=== PATIENT | male | born 2000 | race Caucasian/White ===

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

== ENCOUNTER 2022-06-26 22:37 | Inpatient (IN) | payer OTHER, SELFPAY ==
[2022-06-26 22:40] VITALS: BP 159/108; PULSE 137; RESP 22; TEMP 36.6; O2SAT 99; BMI 29.5
--- NOTE | 2022-06-26 22:55 | XRR_ITS ---
PROCEDURE INFORMATION: Exam: XR Chest Exam date and time: 06/26/2022 11:15 PM Age: 22 years old Clinical indication: Patient HX: Hyperglycemia with lethargy. Type 1 diabetic. TECHNIQUE: Imaging protocol: Radiologic exam of the chest. Views: 1 view. COMPARISON: CR XR chest 1V portable [id number] 11/15/2021 7:41 AM FINDINGS: Lungs: Unremarkable. No consolidation. Pleural spaces: Unremarkable. No pleural effusion. No pneumothorax. Heart/Mediastinum: Unremarkable. No cardiomegaly. Bones/joints: Unremarkable. XR/XR chest 1V portable [id number] IMPRESSION: No acute findings.
[2022-06-26 23:16] LABS: Glucose Point of Care 528 mg/dL (70-110)
[2022-06-26 23:22] LABS: ABG PCO2 14.1 mmHg (35-45); HCO3 ABG 3.5 mmol/L (22-26)
[2022-06-26 23:23] LABS: Base Excess ABG -25.8 mmol/L (-2.0-2.0); Blood Gas Allen Test POS; Oxygen Device RA
[2022-06-26 23:24] LABS: Arterial Blood Gas Hematocrit 53.7 % (42-52); Blood Gas Sample Site R RADIAL; Blood Gas Sample Type ART
[2022-06-26 23:24] LABS: Basophils # 0.1 10^3/uL (0.0-0.1); Basophils % 0.5 %; Eosinophils % 0.2 %; Hematocrit 52.3 % (42.0-52.0); Hemoglobin 16.8 g/dL (11.7-16.6); Lymphocytes # 2.7 10^3/uL (1.5-6.5); Lymphocytes % 23.6 %; Mean Corpuscular HGB Conc 32.1 g/dL (30.0-36.0); Mean Corpuscular Hemoglobin 28.6 pg (28.0-34.0); Mean Corpuscular Volume 88.9 fl (80-94); Mean Platelet Volume 10.1 fL (7.4-10.4); Monocytes # 0.4 10^3/uL (0.2-0.9); Monocytes % 3.5 %; Neutrophils # 8.24 10^3/uL (1.8-8.0); Neutrophils % 71.4 %; Nucleated Red Blood Cells % 0 %; Platelet Count 408 10^3/cmm (130-400); Red Blood Count 5.88 10^6/uL (4.1-5.3); Red Cell Distribution Width 12.2 % (12.1-15.1); White Blood Count 11.5 10^3/uL (4.5-13.0)
[2022-06-26] MEDS: sodium chloride 0.9% 1,000 ML 999 ML IV ×2 (23:29→23:55)
[2022-06-26] MEDS: ondansetron 2 mg/ML SDV 2 mL 4 MG IVP (23:32)
[2022-06-26] MEDS: insulin regular-human 100 units/1 mL 10 UNIT IVP (23:32)
[2022-06-26 23:43] LABS: Alanine Aminotransferase 17 U/L (0-41); Albumin Level 4.9 g/dL (3.5-5.2); Alkaline Phosphatase 166 U/L (40-130); Anion Gap 45.2 (5-19); Aspartate Amino Transferase 18 U/L (0-40); Blood Urea Nitrogen 17 mg/dL (6-20); Calcium 9.4 mg/dL (8.5-10.5); Chloride 83 mmol/L (98-107); Globulin 3.5 g/dL (1.3-4.6); Glomerular Filtration Rate 70.4 mL/min (90-130); Lipase 9 U/L (13-60); Magnesium 2.5 mg/dL (1.7-2.3); Osmolality Calculated 289 mOsm/kg (285-295); Potassium 5.2 mmol/L (3.5-5.1); Sodium 126 mmol/L (136-145); Total Bilirubin 0.4 mg/dL (0.15-1.2); Total Protein 8.4 g/dL (6.6-8.7)
[2022-06-26 23:47] LABS: Carbon Dioxide 3 mmol/L (22-29); Glucose 557 mg/dL (65-115)
--- NOTE | 2022-06-26 23:49 | ECG_ITS ---
[facility] Test Date: 2022-06-26 Pat Name: Darrel Mcduffie Department: Room: Gender: Male Network Account Manager: : 2000 Requested By: Brayan Curtis Order Number: [id number] Leti MD: Kerwin Rice M.D. Measurements Intervals [place] Rate: 147 P: 66 MI: 133 QRS: 48 QRSD: 94 T: 59 QT: 279 QTc: 437 Interpretive Statements SINUS TACHYCARDIA ABNORMAL RHYTHM ECG Compared to ECG 11/15/2021 06:29:48 Left-axis deviation no longer present ST (T wave) deviation no longer present Electronically Signed On 06-27-2022 17:08:05 CDT by Kerwin Rice M.D. [id number]
[2022-06-26] MEDS: insulin regular-human 250 UNIT in sodium chloride 0.9% 250 ML 14.14 UNIT IV (23:52)
[2022-06-27] VITALS (72 sets, daily range): BP systolic 93–179; BP diastolic 63–106; PULSE 87–144; RESP 14–38; TEMP 36.4–36.8; O2SAT 94–100; BMI 31.6
[2022-06-27] MEDS: sodium bicarbonate 1 mEq/mL SDV 50mL 100 MEQ IVP (00:04)
[2022-06-27] MEDS: sodium chloride 0.9% 1,000 ML 999 ML IV ×2 (00:05→00:40)
[2022-06-27 00:13] LABS: Ketone (Acetest) Serum Positive (Negative)
--- NOTE | 2022-06-27 00:54 | ED_ITS ---
HPI - Recheck/Abnormal Lab/Rx General: Chief Complaint: Recheck/Abnormal Lab/Rx Stated Complaint: LOW BS Time Seen by Provider: 06/26/22 22:54 Source: patient History of Present Illness: 22-year-old male type I diabetic who has not been wearing his Dexcom sensor the last couple of days. Sugars have been high. He presents with multiple episodes of vomiting today. He is lethargic, breathing fast. complaint: abnormal lab Initial visit for: other Context: other Associated symptoms: chills, nausea and other Review of Systems Const: Reports: chills; Denies: fever(s) Eyes: Denies: change in vision ENMT: Denies: throat pain Card: Denies: chest pain Resp: Reports: dyspnea; Denies: productive cough or non-productive cough GI: Reports: nausea and vomiting; Denies: abdominal pain or diarrhea Skin/Breast: Denies: rash Neuro: Reports: headache(s) PFS ED PFSH: Medical History (Updated 06/27/22 @ 03:07 by Brayan West DO) DKA (diabetic ketoacidosis) Uncontrolled type 1 diabetes mellitus Surgical History No significant past surgical history Family History Father No problems noted. Mother No problems noted. Social History Smoking and tobacco status: never smoked Second hand smoke exposure: No Smoking risk assessment/counseling performed?: Yes Alcohol intake: never Substance/Drug Use: never Desire information about substance/drug rehabilitation?: No Counseling given: No Adopted: No Lives independently: No Household members: family Housing: House Marital status: Single Highest education level completed: High School Graduate Current occupational status: unemployed Current occupational exposures/hazards: No Physical Exam Const: GENERAL APPEARANCE: in distress, lethargic and ill appearing ORIENTATION/CONSCIOUSNESS: Yes lethargic HENMT: COMMON NORMALS: normocephalic, atraumatic and Normal external nose present HEAD & SCALP: normocephalic and atraumatic FACE & SINUS: normal facial exam and face symmetric NOSE: Normal external nose present Eye: COMMON NORMALS: Equal, round and reactive pupils present and EOMs intact bilaterally PUPIL: Yes Equal, round and reactive pupils present Neck/C-Spine: GENERAL: Yes trachea midline Chest: CHEST: Yes Symmetrical chest wall rise Resp: COMMON NORMALS: clear to auscultation bilaterally EFFORT & I NSPECTION: Yes tachypneic AUSCULTATION: clear to auscultation bilaterally Cardio: COMMON NORMALS: regular rhythm RATE: tachycardic RHYTHM: regular rhythm GI: COMMON NORMALS: Normal to inspection, nondistended, normoactive bowel sounds present and Soft to palpation PALPATION: Yes Soft to palpation Extremity: COMMON NORMALS: no pedal edema Neuro: [place] COMA SCALE: document GCS findings [place] coma scale eye opening: To sound [place] coma scale verbal response: Confused [place] coma scale motor response: Obey commands [place] coma scale total score: 13 SENSORIUM/ORIENTATION: Yes lethargic Skin: COMMON NORMALS: no wounds Course Vital Signs: Vital signs: Vital Signs Temperature 97.8 F 06/26/22 22:40 Pulse Rate 128 H 06/27/22 02:20 Respiratory Rate 24 H 06/27/22 02:20 Blood Pressure 179/106 06/27/22 02:20 Pulse Oximetry 100 06/27/22 02:20 Oxygen Delivery Me thod Room Air 06/27/22 00:02 MDM - Recheck/Abnormal Lab/Rx Medical Decision Making Patient significantly tachycardic, tachypneic. Hemoglobin is 17. White blood cell count is 11.5. Bicarbonate is 3. Potassium was 5.2 initially. Blood sugar is 557. 2 L bolus had been ordered initially. This was followed by another 2 L bolus ordered. He is placed on insulin drip after bolus of 12 units of insulin IV. H is 7.0 with a bicarbonate of 3.5. Lipase is normal. Serum ketones are obviously positive. Chest x-ray is negative. Heart rate is down to 120. Blood pressure 134/86, saturations 100. His color is better. He was given 2 A of bicarbonate for the low pH. He will require ICU admission. 4 L of fluid infused. Sugar is down to 246. Insulin drip still running with a goal of 200, but maintenance fluid changed to D5 half-normal saline with 20 mEq of potassium added for now. He is going to the ICU. Spoke with the hospitalist, who has evaluated the patient. Lab Data 06/26/22 23:02 06/26/22 23:02 Radiology Impressions Chest X-Ray 06/26/22 22:55 IMPRESSION: No acute findings. Laboratory Results WBC 11.5 10^3/uL (4.5-13.0) 06/26/22 23:02 RBC 5.88 10^6/uL (4.1-5.3) H 06/26/22 23:02 Hgb 16.8 g/dL (11.7-16.6) H 06/26/22 23:02 Hct 52.3 % (42.0-52.0) H 06/26/22 23:02 MCV 88.9 fl (80-94) 06/26/22 23:02 MCH 28.6 pg (28.0-34.0) 06/26/22 23:02 MCHC 32.1 g/dL (30.0-36.0) 06/26/22 23:02 RDW 12.2 % (12.1-15.1) 06/26/22 23:02 Plt Count 408 10^3/cmm (130-400) H 06/26/22 23:02 MPV 10.1 fL (7.4-10.4) 06/26/22 23:02 Neut % (Auto) 71.4 % 06/26/22 23:02 Lymph % (Auto) 23.6 % 06/26/22 23:02 [place] % (Auto) 3.5 % 06/26/22 23:02 Eos % (Auto) 0.2 % 06/26/22 23:02 Baso % (Auto) 0.5 % 06/26/22 23:02 Neut # (Auto) 8.24 10^3/uL (1.8-8.0) H 06/26/22 23:02 Lymph # (Auto) 2.7 10^3/uL (1.5-6.5) 06/26/22 23:02 [place] # (Auto) 0.4 10^3/uL (0.2-0.9) 06/26/22 23:02 Eos # (Auto) 0.0 10^3/uL (0.0-0.8) 06/26/22 23:02 Baso # (Auto) 0.1 10^3/uL (0.0-0.1) 06/26/22 23:02 Nucleated RBC % (auto) 0 % 06/26/22 23:02 Nucleated RBCs # 0.0 /100WBC 06/26/22 23:02 Specimen Type Art 06/26/22 22:59 Sample Site R radial 06/26/22 22:59 ABG pH 7.00 (7.35-7.45) L* 06/26/22 22:59 ABG pCO2 14.1 mmHg (35-45) L* 06/26/22 22:59 ABG pO2 124.0 mmHg (80.0-100.0) H 06/26/22 22:59 ABG HCO3 3.5 mmol/L (22-26) L 06/26/22 22:59 ABG Base Excess -25.8 mmol/L (-2.0-2.0) L 06/26/22 22:59 Rob Test Pos 06/26/22 22:59 Hematocrit 53.7 % (42-52) H 06/26/22 22:59 O2 Delivery Device Ra 06/26/22 22:59 Specimen Drawn By [email or web address] 06/26/22 22:59 Water Resource Consultant ID Alonso 06/26/22 22:59 Sodium 126 mmol/L (136-145) L 06/26/22 23:02 Potassium 5.2 mmol/L (3.5-5.1) H 06/26/22 23:02 Chloride 83 mmol/L (98-107) L 06/26/22 23:02 Carbon Dioxide 3 mmol/L (22-29) L* 06/26/22 23:02 Anion Gap 45.2 (5-19) H 06/26/22 23:02 BUN 17 mg/dL (6-20) 06/26/22 23:02 Creatinine 1.3 mg/dL (0.7-1.2) H 06/26/22 23:02 GFR Calculation 70.4 mL/min (90-130) L 06/26/22 23:02 Glucose 557 mg/dL (65-115) H* 06/26/22 23:02 POC Glucose 463 mg/dL (70-110) H 06/27/22 00:08 Calculated Osmolality 289 mOsm/kg (285-295) 06/26/22 23:02 Calcium 9.4 mg/dL (8.5-10.5) 06/26/22 23:02 Magnesium 2.5 mg/dL (1.7-2.3) H 06/26/22 23:02 Total Bilirubin 0.4 mg/dL (0.15-1.2) 06/26/22 23:02 AST 18 U/L (0-40) 06/26/22 23:02 ALT 17 U/L (0-41) 06/26/22 23:02 Alkaline Phosphatase 166 U/L (40-130) H 06/26/22 23:02 Total Protein 8.4 g/dL (6.6-8.7) 06/26/22 23:02 Albumin 4.9 g/dL (3.5-5.2) 06/26/22 23:02 Globulin 3.5 g/dL (1.3-4.6) 06/26/22 23:02 Lipase 9 U/L (13-60) L 06/26/22 23:02 Urine Color Yellow (Yellow) 06/27/22 00:22 Urine Appearance Clear (CLEAR) 06/27/22 00:22 Urine pH 5 (5-7) 06/27/22 00:22 Ur Specific [place] 1.020 (1.005-1.030) 06/27/22 00:22 Urine Protein 1+ (Negative) H 06/27/22 00:22 Urine Glucose (UA) 4+ (Normal) H 06/27/22 00:22 Urine Ketones 3+ (Negative) H 06/27/22 00:22 Urine Blood 2+ (Negative) H 06/27/22 00:22 Urine Nitrate Negative (Negative) 06/27/22 00: Urine Bilirubin Neg (Negative) 06/27/22 00: Urine Urobilinogen Norm mg/dL (Negative) 06/27/22 00:22 Ur Leukocyte Esterase Negative (Negative) 06/27/22 00:22 Urine RBC None /hpf (0-2) 06/27/22 00:22 Urine WBC None /hpf (0-5) 06/27/22 00:22 Ur Squamous Epith Cells None /hpf (0-5) 06/27/22 00:22 Amorphous Sediment Not Reportable 06/27/22 00:22 Urine Bacteria Trace /hpf (NONE) 06/27/22 00:22 Serum Ketones Positive (Negative) H 06/26/22 23:02 Critical Care Time Critical Care Time: Critical Care Time: Yes Total Critical Care Time: 40 Attestation: This case had a high probability of a clinically significant, sudden, or life threatening deterioration of this patient's condition which required my full and direct attention, intervention and personal management. Time is independent of any procedures performed Discharge Plan Discharge Patient Disposition: Admitted As Inpatient Admit Provider: Demario Guerin Clinical Impression: DKA (diabetic ketoacidosis) Condition: Serious Coding Level of Care Code ED Solutions Architect Consultant for [employer]eller
[2022-06-27 01:16] LABS: Glucose Point of Care 532 mg/dL (70-110)
[2022-06-27 01:16] LABS: Glucose Point of Care 463 mg/dL (70-110)
[2022-06-27 01:20] LABS: Urine Appearance Clear (CLEAR); Urine Color Yellow (Yellow); pH Urine 5 (5-7)
[2022-06-27 01:21] LABS: Add Urine Microscopic? YES; Bilirubin Urine Neg (Negative); Blood Urine 2+ (Negative); Glucose Urine UA 4+ (Normal); Ketones Urine 3+ (Negative); Leukocyte Esterase Urine Negative (Negative); Nitrate Urine Negative (Negative); Protein Urine 1+ (Negative); Urobilinogen Urine Norm (Negative)
[2022-06-27 01:31] LABS: Bacteria Urine TRACE /hpf
--- NOTE | 2022-06-27 02:28 | PM.HP ---
Providers/Chief Complaint Admitting Physician: Demario Guerin MD Primary Care Provider: Ryanne Kimball MD Chief Complaint: LOW BS History of Present Illness Darrel Mcduffie is a 22 year old male with a past medical history of type 1 diabetes mellitus, history of hospitalization for DKA, who presents to [facility] due to fatigue, malaise, elevated blood sugars. He tells me that he has an insulin pump in place, he has been waiting for the insurance company to approve the sensor for his insulin pump, this was back in June, he is not sure if it got approved he will get an email, he has not received an email since then, so he has not had any insulin through his pump since June 20, and he tells me is not been compliant with his subcu insulin in the meantime, denies any abdominal pain, no diarrhea, feels nauseous, no vomiting, no headache, blurry vision, no neck pain, neck stiffness, no chest pain, emergency room he is found to have DKA with a pH of 7, was given bicarb, fluids started insulin drip Review of Systems Const: Denies: fever(s) Card: Denies: chest pain GI: Denies: abdominal pain : Denies: flank pain or difficulty urinating Medications/Allergies Home Medications Medication Instructions Recorded Confirmed Last Taken Type glucagon 1 mg/0.2 mL subcutaneous See Rx Instructions .Route .COMPLEX 11/09/20 04/06/22 Unknown History auto-injector multivitamin (Daily Multi-Vitamin 1 tab PO DAILY 11/09/20 04/06/22 08/27/21 History tablet) pen needle, diabetic 32 gauge x #450 ea 05/10/21 04/06/22 Unknown Rx (Comfort EZ Pen [place]) blood-glucose sensor (Dexcom G6 #9 ea 08/18/21 04/06/22 Unknown Rx Sensor device) cholecalciferol (vitamin D3) 25 1,000 unit PO Q7D 11/15/21 04/06/22 Unknown History mcg (1,000 unit) capsule (Vitamin D3) insulin glargine U-300 conc 300 46 unit SUBCUT BID 11/15/21 04/06/22 Unknown History unit/mL (3 mL) subcutaneous pen (Toujeo Max U-300 SoloStar) blood-glucose transmitter (Dexcom #6 ea 02/04/22 04/06/22 Unknown Rx G6 Transmitter device) insulin lispro 100 unit/mL See Rx Instructions SUBCUT TID #15 03/17/22 04/06/22 Unknown Rx subcutaneous cartridge (Humalog mL U-100 Insulin) Allergies Allergy/AdvReac Type Severity Reaction Status Date / Time No Known Allergies Allergy Verified 06/26/22 22:47 PFSH Acute PFSH: Medical History (Updated 06/27/22 @ 02:32 by Demario Guerin MD) DKA (diabetic ketoacidosis) Uncontrolled type 1 diabetes mellitus Surgical History No significant past surgical history Family History Father No problems noted. Mother No problems noted. Social History Smoking and tobacco status: never smoked Second hand smoke exposure: No Smoking risk assessment/counseling performed?: Yes Alcohol intake: never Substance/Drug Use: never Desire information about substance/drug rehabilitation?: No Counseling given: No Adopted: No Lives independently: No Household members: family Housing: House Marital status: Single Highest education level completed: High School Graduate Current occupational status: unemployed Current occupational exposures/hazards: No Vitals/I&O/Wt Last Vital Signs Temp 97.8 F 06/26/22 22:40 Pulse 128 H 06/27/22 02:20 Resp 24 H 06/27/22 02:20 BP 179/106 06/27/22 02:20 Pulse Ox 100 06/27/22 02:20 O2 Del Method Room Air 06/27/22 00:02 06/26/22 06/26/22 06/27/22 14:59 22:59 06:59 Intake Total 3432.9 / 3432.9 Balance 3432.9 / 3432.9 Weight last 48 hrs Weight 90.718 kg Physical Exam Const: COMMON NORMALS: no acute distress and patient oriented x3 HENMT: COMMON NORMALS: normocephalic HEAD & SCALP: normocephalic Eye: COMMON NORMALS: Equal, round and reactive pupils present Neck/C-Spine: COMMON NORMALS: no JVD Resp: COMMON NORMALS: No retractions, No use of accessory muscles and clear to auscultation bilaterally AUSCULTATION: clear to auscultation bilaterally OTHER: [place] respiration Cardio: COMMON NORMALS: regular rate, regular rhythm, S1 normal heart sound present and S2 normal heart sound present RATE: tachycardic RHYTHM: regular rhythm HEART SOUNDS: S1 normal heart sound present and S2 normal heart sound present GI: COMMON NORMALS: Normal to inspection, nondistended, normoactive bowel sounds present, Soft to palpation and non-tender PALPATION: Yes Soft to palpation and Yes No hepatosplenomegaly present Extremity: COMMON NORMALS: capillary refill normal and no pedal edema Neuro: COMMON NORMALS: patient oriented x3 and CN's II-XII intact bilaterally Psych: COMMON NORMALS: mental status grossly normal Data 06/26/22 23:02 06/26/22 23:02 A&P Assessment and plan (1) DKA (diabetic ketoacidosis): Plan Diabetic ketoacidosis -Admit to ICU -DKA protocol -Continue insulin drip -Supplement potassium if it drops below 4.5, hold insulin drip -Start D5 half-normal saline with 20 KCl -Has received 2 amp of bicarb -Once gap is closed, will switch over to subcu insulin -Has KENY, IV fluids -BMP every 4 hours -Monitor heart rates, monitor vitals -Full code -SCDs for DVT prophylaxis Attestations Medical Necessity Statement*: Patient requires hospitalization, inpatient, greater than 2 midnights, for diabetic ketoacidosis Diagnoses DKA (diabetic ketoacidosis) E11.10
[2022-06-27 02:35] LABS: Glucose Point of Care 271 mg/dL (70-110)
[2022-06-27] MEDS: D5-NS 0.45% + KCL 20 mEq 20 MEQ/1,000 ML BAG 150 MEQ IV (02:45)
[2022-06-27 02:54] LABS: Glucose Point of Care 246 mg/dL (70-110)
[2022-06-27 03:31] LABS: Glucose Point of Care 214 mg/dL (70-110)
[2022-06-27] MEDS: pantoprazole 40 mg SDV IVP (03:53)
[2022-06-27 04:13] LABS: Glucose Point of Care 205 mg/dL (70-110)
[2022-06-27] MEDS: D5-NS 0.45% + KCL 20 mEq 20 MEQ/1,000 ML BAG 125 MEQ IV ×3 (04:23→18:05)
[2022-06-27 04:43] LABS: Estmated Average Glucose 255; Hemoglobin A1C 10.5 % (4.0-6.0)
[2022-06-27 04:49] LABS: Lactic Sepsis W/Reflex 1.2 mmol/L (0.5-2.2)
[2022-06-27 05:00] LABS: Procalcitonin 0.42 ng/mL (0-0.5); Thyroid Stimulating Hormone 0.27 uIU/mL (0.27-4.20)
[2022-06-27 05:10] LABS: Anion Gap 31.4 (5-19); Blood Urea Nitrogen 12 mg/dL (6-20); Calcium 7.8 mg/dL (8.5-10.5); Chloride 99 mmol/L (98-107); Glomerular Filtration Rate 85.3 mL/min (90-130); Glucose 182 mg/dL (65-115); Osmolality Calculated 276 mOsm/kg (285-295); Potassium 4.4 mmol/L (3.5-5.1); Sodium 131 mmol/L (136-145)
[2022-06-27 05:19] LABS: Glucose Point of Care 196 mg/dL (70-110)
[2022-06-27 05:21] LABS: Carbon Dioxide 5 mmol/L (22-29)
--- NOTE | 2022-06-27 07:26 | PM.PN ---
Subjective Subjective: Awakens easily. Reports he is having trouble getting a transmitter for his Dexcom. States he was using subcutaneous insulin. Still very tired, so long conversation was not possible. Denies any nausea or abdominal pain currently. Medications: Reviewed: Yes Vitals/I&O/Wt Last Vital Signs Temp 97.6 F 06/27/22 03:20 Pulse 112 H 06/27/22 06:00 Resp 25 H 06/27/22 04:30 BP 123/80 06/27/22 04:30 Pulse Ox 99 06/27/22 05:55 O2 Del Method Room Air 06/27/22 05:55 06/26/22 06/27/22 06/27/22 22:59 06:59 14:59 Intake Total 3719.992 / 3719.992 Output Total 825 / 825 Balance 2894.992 / 2894.992 Weight last 48 hrs Weight 97.069 kg Weight 90.718 kg Physical Exam Narrative: General exam no distress Neck is supple Cardiovascular tachycardic, no murmur Lungs clear Abdomen is soft, positive bowel sounds Extremities no cyanosis clubbing or edema Data 06/26/22 23:02 06/27/22 04:21 Micro: Microbiology 06/27/22 04:11 Blood Culture - Preliminary Blood SPECIMEN COLLECTED A&P Assessment and plan (1) DKA (diabetic ketoacidosis): Significantly acidotic on presentation. Some trouble with getting supplies regarding his measurement of sugar as he is on an insulin pump. Will notify discharge planning. Continue insulin drip, D5 drip Check magnesium and phosphorus with next blood draw BMP every 4 hours We will visit with his cook pickled meat prior to discharge if possible Plan Other medical problems as outlined in past medical history Low risk, no DVT prophylaxis Full code Attestations Medical Necessity Statement*: Needs continued hospitalization secondary to persistent DKA, high anion gap metabolic acidosis Coding Level of Care Code Critical Care >/= 30 minutes Critical care time (in minutes): 31 The high probability of a clinically significant, sudden or life threatening deterioration, as referenced in this documentation, required my full and direct attention, intervention and personal management. The critical care time shown is in addition to time spent performing any reported separately billable procedures and includes the following: [x] Data and vital sign review and interpretation [x] Patient assessment, examination and intervention [x] Medication orders and management [x] Patient/Family updates as able [x] Care Coordination and Documentation. Diagnoses DKA (diabetic ketoacidosis) E11.10
[2022-06-27 07:41] LABS: Glucose Point of Care 156 mg/dL (70-110)
--- NOTE | 2022-06-27 07:54 | PC.PHAR ---
Addendum entered by Cherri Gill 06/27/22 09:53: [facility] PT ONLY FILLS HUMALOG U-100 FOR THIS PT Original Note: WAITING FOR [facility] TO OPEN AT 9 AM TO FIND OUT WHAT LONG ACTING INSULIN THIS PT IS CURRENTLY TAKING- PTS MOTHER WAS UNSURE
[2022-06-27 08:44] LABS: Blood Urea Nitrogen 10 mg/dL (6-20); Chloride 98 mmol/L (98-107); Glomerular Filtration Rate 123.2 mL/min (90-130); Glucose 146 mg/dL (65-115); Magnesium 1.9 mg/dL (1.7-2.3); Osmolality Calculated 272 mOsm/kg (285-295); Sodium 130 mmol/L (136-145)
[2022-06-27 08:49] LABS: Carbon Dioxide 8 mmol/L (22-29)
[2022-06-27 08:50] LABS: Anion Gap 29.3 (5-19); Potassium 5.3 mmol/L (3.5-5.1)
[2022-06-27 08:58] LABS: Glucose Point of Care 129 mg/dL (70-110)
[2022-06-27 08:58] LABS: Glucose Point of Care 173 mg/dL (70-110)
[2022-06-27 10:15] LABS: Glucose Point of Care 178 mg/dL (70-110)
[2022-06-27 11:44] LABS: Glucose Point of Care 126 mg/dL (70-110)
[2022-06-27 12:28] LABS: Blood Urea Nitrogen 8 mg/dL (6-20); Calcium 8.5 mg/dL (8.5-10.5); Carbon Dioxide 14 mmol/L (22-29); Chloride 102 mmol/L (98-107); Glomerular Filtration Rate 95.3 mL/min (90-130); Glucose 124 mg/dL (65-115); Osmolality Calculated 274 mOsm/kg (285-295); Sodium 132 mmol/L (136-145)
[2022-06-27 13:50] LABS: Glucose Point of Care 116 mg/dL (70-110)
[2022-06-27 16:38] LABS: Glucose Point of Care 164 mg/dL (70-110)
[2022-06-27 17:34] LABS: Blood Urea Nitrogen 7 mg/dL (6-20); Calcium 8.3 mg/dL (8.5-10.5); Carbon Dioxide 14 mmol/L (22-29); Chloride 102 mmol/L (98-107); Glomerular Filtration Rate 123.2 mL/min (90-130); Glucose 181 mg/dL (65-115); Osmolality Calculated 281 mOsm/kg (285-295); Sodium 134 mmol/L (136-145)
[2022-06-27 21:39] LABS: Anion Gap 19.6 (5-19); Blood Urea Nitrogen 6 mg/dL (6-20); Calcium 8.5 mg/dL (8.5-10.5); Carbon Dioxide 16 mmol/L (22-29); Chloride 103 mmol/L (98-107); Glomerular Filtration Rate 123.2 mL/min (90-130); Glucose 151 mg/dL (65-115); Osmolality Calculated 281 mOsm/kg (285-295); Potassium 3.6 mmol/L (3.5-5.1); Sodium 135 mmol/L (136-145)
[2022-06-27 22:07] LABS: Glucose Point of Care 149 mg/dL (70-110)
[2022-06-27 22:14] LABS: Glucose Point of Care 141 mg/dL (70-110)
[2022-06-27 22:14] LABS: Glucose Point of Care 134 mg/dL (70-110)
[2022-06-27 23:00] LABS: Glucose Point of Care 126 mg/dL (70-110)
[2022-06-28] VITALS (19 sets, daily range): BP systolic 112–144; BP diastolic 55–87; PULSE 76–108; RESP 16–26; TEMP 36.4–36.6; O2SAT 95–99; BMI 30.4
[2022-06-28 00:19] LABS: Glucose Point of Care 137 mg/dL (70-110)
[2022-06-28] MEDS: D5-NS 0.45% + KCL 20 mEq 20 MEQ/1,000 ML BAG 125 MEQ IV (01:09)
[2022-06-28 01:19] LABS: Glucose Point of Care 133 mg/dL (70-110)
[2022-06-28] MEDS: pantoprazole 40 mg SDV IVP (02:01)
[2022-06-28 02:21] LABS: Glucose Point of Care 137 mg/dL (70-110)
[2022-06-28 03:29] LABS: Glucose Point of Care 142 mg/dL (70-110)
[2022-06-28 04:22] LABS: Basophils % 0.2 %; Eosinophils # 0.1 10^3/uL (0.0-0.8); Eosinophils % 0.8 %; Hematocrit 40.5 % (42.0-52.0); Hemoglobin 13.7 g/dL (11.7-16.6); Lymphocytes # 2.6 10^3/uL (1.5-6.5); Lymphocytes % 42.9 %; Mean Corpuscular HGB Conc 33.8 g/dL (30.0-36.0); Mean Corpuscular Hemoglobin 28.5 pg (28.0-34.0); Mean Corpuscular Volume 84.2 fl (80-94); Mean Platelet Volume 9.3 fL (7.4-10.4); Monocytes # 0.4 10^3/uL (0.2-0.9); Monocytes % 7.2 %; Neutrophils # 2.89 10^3/uL (1.8-8.0); Neutrophils % 48.7 %; Nucleated Red Blood Cells % 0 %; Platelet Count 255 10^3/cmm (130-400); Red Blood Count 4.81 10^6/uL (4.1-5.3); Red Cell Distribution Width 12.7 % (12.1-15.1); White Blood Count 5.9 10^3/uL (4.5-13.0)
[2022-06-28 04:33] LABS: Glucose Point of Care 142 mg/dL (70-110)
[2022-06-28 04:46] LABS: Alanine Aminotransferase 11 U/L (0-41); Albumin Level 3.5 g/dL (3.5-5.2); Alkaline Phosphatase 100 U/L (40-130); Anion Gap 17.3 (5-19); Aspartate Amino Transferase 14 U/L (0-40); Blood Urea Nitrogen 5 mg/dL (6-20); Calcium 8.3 mg/dL (8.5-10.5); Carbon Dioxide 16 mmol/L (22-29); Chloride 105 mmol/L (98-107); Globulin 2.6 g/dL (1.3-4.6); Glomerular Filtration Rate 143.8 mL/min (90-130); Glucose 152 mg/dL (65-115); Magnesium 1.9 mg/dL (1.7-2.3); Osmolality Calculated 280 mOsm/kg (285-295); Potassium 3.3 mmol/L (3.5-5.1); Sodium 135 mmol/L (136-145); Total Bilirubin 0.5 mg/dL (0.15-1.2); Total Protein 6.1 g/dL (6.6-8.7)
[2022-06-28 05:56] LABS: Glucose Point of Care 129 mg/dL (70-110)
[2022-06-28 06:39] LABS: Glucose Point of Care 138 mg/dL (70-110)
[2022-06-28 08:07] LABS: Glucose Point of Care 147 mg/dL (70-110)
[2022-06-28] MEDS: potassium chloride ER 20 mEq Tablet 40 MEQ PO ×2 (08:12→10:48)
[2022-06-28] MEDS: pantoprazole DR 40 mg Tablet PO (08:12)
[2022-06-28 09:44] LABS: Anion Gap 14.3 (5-19); Blood Urea Nitrogen 4 mg/dL (6-20); Calcium 8.4 mg/dL (8.5-10.5); Carbon Dioxide 20 mmol/L (22-29); Chloride 106 mmol/L (98-107); Glomerular Filtration Rate 171.8 mL/min (90-130); Glucose 147 mg/dL (65-115); Osmolality Calculated 284 mOsm/kg (285-295); Potassium 3.3 mmol/L (3.5-5.1); Sodium 137 mmol/L (136-145)
[2022-06-28 10:08] LABS: Glucose Point of Care 167 mg/dL (70-110)
[2022-06-28] MEDS: lactated ringers 1,000 ML 75 ML IV (10:48)
[2022-06-28] MEDS: insulin glargine 100 units/1 mL 30 UNIT SUBCUT (10:49)
[2022-06-28 12:22] LABS: Glucose Point of Care 280 mg/dL (70-110)
[2022-06-28] MEDS: insulin lispro 100 unit/1 mL SUBCUT ×4 (12:59→17:22)
[2022-06-28 14:39] LABS: Anion Gap 19.8 (5-19); Blood Urea Nitrogen 5 mg/dL (6-20); Calcium 8.7 mg/dL (8.5-10.5); Carbon Dioxide 17 mmol/L (22-29); Chloride 101 mmol/L (98-107); Glomerular Filtration Rate 143.8 mL/min (90-130); Glucose 289 mg/dL (65-115); Osmolality Calculated 286 mOsm/kg (285-295); Potassium 3.8 mmol/L (3.5-5.1); Sodium 134 mmol/L (136-145)
[2022-06-28] MEDS: insulin glargine 100 units/1 mL 15 UNIT SUBCUT (15:32)
[2022-06-28 16:55] LABS: Glucose Point of Care 214 mg/dL (70-110)
[2022-06-28] MEDS: insulin glargine 100 units/1 mL 45 UNIT SUBCUT (17:21)
[2022-06-28 18:52] LABS: Anion Gap 17.7 (5-19); Blood Urea Nitrogen 5 mg/dL (6-20); Calcium 8.3 mg/dL (8.5-10.5); Carbon Dioxide 18 mmol/L (22-29); Chloride 103 mmol/L (98-107); Glomerular Filtration Rate 171.8 mL/min (90-130); Glucose 261 mg/dL (65-115); Osmolality Calculated 286 mOsm/kg (285-295); Potassium 3.7 mmol/L (3.5-5.1); Sodium 135 mmol/L (136-145)
--- NOTE | 2022-06-28 19:08 | P.DS_ITS ---
Discharge Providers Date of Admission: 06/27/22 02:47 Date of Discharge: June 28, 2022 Attending Provider at Admission: Demario Guerin MD Attending Provider at Discharge: Juve Kimball MD Primary Care Provider: Ryanne Kimball MD Diagnoses at Discharge Discharge Diagnosis (1) DKA (diabetic ketoacidosis): Status: Resolved Reason for Visit Reason for Visit: LOW Hospital Course Hospital Course Darrel is a 22-year-old white male who presented to the emergency department with complaints of abdominal pain nausea and vomiting and elevated sugar. He has known type 1 diabetes. He was found to be in DKA with significant acidosis. He was given multiple fluid boluses, and transitioned on an insulin drip protocol to the ICU. Close electrolyte management ensued. Correction of electrolyte abnormalities occurred. With insulin drip, eventually glucose drip, acidosis eventually resolved. After resolution of acidosis subcutaneous insulin was initiated, as well as p.o. intake. He tolerated this and with correction of his acidosis he was discharged home on June. Nausea, vomiting had resolved. Etiology of episode was thought to be secondary to less glucose monitoring secondary to issue with supplies. He assured me he had supplies on discharge, was going to use his Toujeo and Humalog at home with close monitoring and visit with his dental laboratory supervisor about when to restart his insulin pump when more continuous testing supplies, his Dexcom, was working. He was encouraged to contact his primary care provider for follow-up as well as endocrinology as soon as possible. Physical Exam Narrative: General exam no distress Neck is supple Cardiovascular regular rate and rhythm Lungs clear Abdomen is soft Extremities no cyanosis clubbing or edema Discharge Data Studies Completed and Pending Completed Studies During Hospitalization Category Date Time Status XR chest 1V portable [id number] Stat Exams 06/26/22 22:55 Completed Pending at discharge Category Date Time Status Blood Culture Routine Lab 06/27/22 07:58 Results Radiology Impressions Chest X-Ray 06/26/22 22:55 IMPRESSION: No acute findings. Laboratory Results WBC 5.9 10^3/uL (4.5-13.0) 06/28/22 04:13 RBC 4.81 10^6/uL (4.1-5.3) 06/28/22 04:13 Hgb 13.7 g/dL (11.7-16.6) 06/28/22 04:13 Hct 40.5 % (42.0-52.0) L 06/28/22 04:13 MCV 84.2 fl (80-94) D 06/28/22 04:13 MCH 28.5 pg (28.0-34.0) 06/28/22 04:13 MCHC 33.8 g/dL (30.0-36.0) D 06/28/22 04:13 RDW 12.7 % (12.1-15.1) 06/28/22 04:13 Plt Count 255 10^3/cmm (130-400) D 06/28/22 04:13 MPV 9.3 fL (7.4-10.4) 06/28/22 04:13 Neut % (Auto) 48.7 % 06/28/22 04:13 Lymph % (Auto) 42.9 % 06/28/22 04:13 [place] % (Auto) 7.2 % 06/28/22 04:13 Eos % (Auto) 0.8 % 06/28/22 04:13 Baso % (Auto) 0.2 % 06/28/22 04:13 Neut # (Auto) 2.89 10^3/uL (1.8-8.0) 06/28/22 04:13 Lymph # (Auto) 2.6 10^3/uL (1.5-6.5) 06/28/22 04:13 [place] # (Auto) 0.4 10^3/uL (0.2-0.9) 06/28/22 04:13 Eos # (Auto) 0.1 10^3/uL (0.0-0.8) 06/28/22 04:13 Baso # (Auto) 0.0 10^3/uL (0.0-0.1) 06/28/22 04:13 Nucleated RBC % (auto) 0 % 06/28/22 04:13 Nucleated RBCs # 0.0 /100WBC 06/28/22 04:13 Specimen Type Art 06/26/22 22:59 Sample Site R radial 06/26/22 22:59 ABG pH 7.00 (7.35-7.45) L* 06/26/22 22:59 ABG pCO2 14.1 mmHg (35-45) L* 06/26/22 22:59 ABG pO2 124.0 mmHg (80.0-100.0) H 06/26/22 22:59 ABG HCO3 3.5 mmol/L (22-26) L 06/26/22 22:59 ABG Base Excess -25.8 mmol/L (-2.0-2.0) L 06/26/22 22:59 Rob Test Pos 06/26/22 22:59 Hematocrit 53.7 % (42-52) H 06/26/22 22:59 O2 Delivery Device Ra 06/26/22 22:59 Specimen Drawn By [email or web address] 06/26/22 22:59 Railway Signal Technician ID [place] 06/26/22 22:59 Sodium 135 mmol/L (136-145) L 06/28/22 18:22 Potassium 3.7 mmol/L (3.5-5.1) 06/28/22 18:22 Chloride 103 mmol/L (98-107) 06/28/22 18:22 Carbon Dioxide 18 mmol/L (22-29) L 06/28/22 18:22 Anion Gap 17.7 (5-19) 06/28/22 18:22 BUN 5 mg/dL (6-20) L 06/28/22 18:22 Creatinine 0.6 mg/dL (0.7-1.2) L 06/28/22 18:22 GFR Calculation 171.8 mL/min (90-130) H 06/28/22 18:22 Glucose 261 mg/dL (65-115) H 06/28/22 18:22 POC Glucose 214 mg/dL (70-110) H 06/28/22 16:51 Estimat Average Glucose 255 06/26/22 23:02 Hemoglobin A1c 10.5 % (4.0-6.0) H 06/26/22 23:02 Calculated Osmolality 286 mOsm/kg (285-295) 06/28/22 18:22 Lactic Acid 1.2 mmol/L (0.5-2.2) 06/27/22 04:21 Calcium 8.3 mg/dL (8.5-10.5) L 06/28/22 18:22 Phosphorus 2.0 mg/dL (2.5-4.5) L 06/27/22 08:10 Magnesium 1.9 mg/dL (1.7-2.3) 06/28/22 04:13 Total Bilirubin 0.5 mg/dL (0.15-1.2) 06/28/22 04:13 AST 14 U/L (0-40) 06/28/22 04:13 ALT 11 U/L (0-41) 06/28/22 04:13 Alkaline Phosphatase 100 U/L (40-130) 06/28/22 04:13 Total Protein 6.1 g/dL (6.6-8.7) L 06/28/22 04:13 Albumin 3.5 g/dL (3.5-5.2) 06/28/22 04:13 Globulin 2.6 g/dL (1.3-4.6) 06/28/22 04:13 Lipase 9 U/L (13-60) L 06/26/22 23:02 Procalcitonin 0.42 ng/mL (0-0.5) 06/27/22 04:21 TSH 0.27 uIU/mL (0.27-4.20) 06/27/22 04:21 Urine Color Yellow (Yellow) 06/27/22 00:22 Urine Appearance Clear (CLEAR) 06/27/22 00:22 Urine pH 5 (5-7) 06/27/22 00:22 Ur Specific [place] 1.020 (1.005-1.030) 06/27/22 00:22 Urine Protein 1+ (Negative) H 06/27/22 00:22 Urine Glucose (UA) 4+ (Normal) H 06/27/22 00:22 Urine Ketones 3+ (Negative) H 06/27/22 00:22 Urine Blood 2+ (Negative) H 06/27/22 00:22 Urine Nitrate Negative (Negative) 06/27/22 00: Urine Bilirubin Neg (Negative) 06/27/22 00: Urine Urobilinogen Norm mg/dL (Negative) 06/27/22 00:22 Ur Leukocyte Esterase Negative (Negative) 06/27/22 00: Urine RBC None /hpf (0-2) 06/27/22 00:22 Urine WBC None /hpf (0-5) 06/27/22 00:22 Ur Squamous Epith Cells None /hpf (0-5) 06/27/22 00:22 Amorphous Sediment Not Reportable 06/27/22 00:22 Urine Bacteria Trace /hpf (NONE) 06/27/22 00:22 Serum Ketones Positive (Negative) H 06/26/22 23:02 Vitals Last Vital Signs Temp 97.5 F L 06/28/22 04:00 Pulse 91 06/28/22 17:00 Resp 24 H 06/28/22 17:00 BP 119/61 06/28/22 11:00 Pulse Ox 96 06/28/22 17:00 O2 Del Method Room Air 06/28/22 05:00 Discharge Plan Discharge Patient Disposition: Home Condition: Serious Prescriptions: New Toujeo SoloStar U-300 Insulin 300 unit/mL (1.5 mL) insulin pen 45 unit SUBCUT Q12H Qty: 4.5 0RF Continued glucagon 1 mg/0.2 mL auto-injector See Rx Instructions .ROUTE .COMPLEX Rx Instructions: 1 mg subcutaneously as directed prn multivitamin [Daily Multi-Vitamin] Tablet 1 tab PO DAILY (DME) pen needle, diabetic [Comfort EZ Pen Hector] 32 gauge x 5/32 needle See Rx Instructions .Route Qty: 450 3RF Rx Instructions: Use with insulin shots 5 times a day. (DME) Dexcom G6 Sensor Device See Rx Instructions .Route Qty: 9 3RF Rx Instructions: Change every 10 days. (DME) Dexcom G6 Transmitter Device See Rx Instructions .ROUTE .MEDSUPPLY Qty: 6 3RF Rx Instructions: change every 3 months Humalog U-100 Insulin 100 unit/mL cartridge See Rx Instructions SUBCUT TID Qty: 15 3RF Rx Instructions: SS depending on carbs and BS SUBCUT three times daily; Max dose of 45 units. cholecalciferol (vitamin D3) [Vitamin D3] 25 mcg (1,000 unit) Capsule 1,000 unit PO Q7D Rx Instructions: on monday Discharge Orders: Discharge Order (Routine); Ordered 06/28/22 Ordered By: Juve Kimball Referrals: Ryanne Kimball MD [Primary Care Provider] - 4-7 days Kandice Potts MD [Physician] - 4-7 days Discharge Diet: Diabetic Discharge Activity: Resume usual activity Patient Instructions: Insulin Glargine (By injection) (Lantus, Lantus SoloStar, Toujeo, Semglee), Opioid Safety Activity Restrictions/Additional Instructions: Encourage hydration. Resume your long acting insulin 45 units BID, and your sliding scale insulin based on your carb intake until you are able to get monitoring device for your insulin pump. Contact your dental laboratory supervisor tomorrow to arrange follow up with them as soon as possible. Return for any concerns. Patient's Health Concerns: Elevated sugar Assessment: DKA Plan of Treatment: Resume insulin Discharge Attestations Time Spent in Discharge Care*: greater than 30 min Quality Metrics Clinical Quality Measures [ No reported AMI, CVA or VTE this stay] Coding Level of Care Code 11150 Total time (in minutes) for Discharge: 38 Diagnoses DKA (diabetic ketoacidosis) E11.10
--- NOTE | 2022-06-28 19:36 | PC.NURSE ---
Received order from Dr. Kimball to d/c patient home. Patient educated on management of blood glucose as well as taking insulin. Went over discharge packed with both parent and patient. Informed about medications to pickup at patient pharmacy and follow up visit with patient care provider. No questions from patient or parent. All belongings sent home with patient.
== END 2022-06-28 19:38 | disposition home or self-care (01) | DRG 639 ==
LOC: ER 06-27 01:22 → ICU 06-27 02:50
PROVIDERS: Admitting Provider Family Medicine; Emergency Provider Emergency Medicine; PCP Family Medicine; Visit Provider Internal Medicine
DX: E10.10 Type 1 diabetes mellitus with ketoacidosis without coma (principal); Z96.41 Presence of insulin pump (external) (internal); T38.3X6A Underdosing of insulin and oral hypoglycemic [antidiabetic] drugs, initial encounter; Z91.128 Patient's intentional underdosing of medication regimen for other reason
CPT/HCPCS: 36415; 36416; 36600; 71045; 80048; 80053; 81001; 82009; 82803; 82962; 83036; 83605; 83690; 83735; 84100; 84145; 84443; 85025; 87040; 93005; 94664; 96365; 96372; 96375; 96376; 99285; C9113; J1815; J2405; J7030; J7050; J7120

== ENCOUNTER 2022-10-11 15:15 | Inpatient (IN) | payer OTHER, SELFPAY ==
[2022-10-11] VITALS (85 sets, daily range): BP systolic 101–169; BP diastolic 53–106; PULSE 77–237; RESP 15–43; TEMP 37; O2SAT 74–100; BMI 29.7
[2022-10-11 15:44] LABS: Glucose Point of Care 423 mg/dL (70-110)
--- NOTE | 2022-10-11 15:54 | XR_ITS ---
WS: [id number] EXAMINATION: XR chest 1V portable [id number] REASON FOR EXAM: dyspnea/cough COMPARISON: 06/26/2022 ORDER DATE: 10/11/2022 3:59 PM TECHNIQUE: A single, portable frontal chest x-ray was obtained. X-RAY FINDINGS: The lungs are clear. Pleural spaces are clear. No pleural effusions or pneumothorax. Cardiomediastinal silhouette is normal. No evidence for pulmonary edema. Soft tissue and osseous structures are unremarkable. No tubes or lines are present. IMPRESSION: Unremarkable frontal portable chest x-ray.
--- NOTE | 2022-10-11 16:03 | W.ED.NAVMDI ---
HPI - Nausea/Vomiting/Diarrhea General: Chief complaint: Nausea/Vomiting/Diarrhea Stated complaint: diabetic, possible DKA Time Seen by Provider: 10/11/22 15:53 Source: patient Mode of arrival: EMS History of Present Illness: 22-year-old male presents emergency room with nausea and vomiting. Overnight he dislodged his insulin pump he began to have nausea and vomiting he tried several times to take in fluids and use sliding scale regular insulin and did not improve he progressively worsened. Patient presents emergency room stating he is in DKA. He has not recently had any infections. MD elicited complaint: nausea and vomiting Onset (ago): hour(s) Description of vomiting: watery and bilious Associated nausea: Yes Associated abdominal pain: Yes Location of pain: Diffuse Quality: cramping Exacerbating factors: eating and vomiting Relieving factors: none Associated symtoms: Reports bloating, diaphoresis, fatigue, malaise and nausea; Denies altered mental status, anxiety, chest pain, cough, decreased urine output, dizziness, dysuria, fecal incontinence, fevers/chills, headache(s), anorexia, myalgias, numbness, palpitations, rash, short of breath, tenesmus or weakness Review of Systems Const: Reports: fatigue, malaise and diaphoresis; Denies: fever(s) or chills Eyes: Reports: blurry vision and photophobia Card: Denies: chest pain or palpitations Resp: Denies: dyspnea, productive cough or wheezing GI: Reports: abdominal pain, nausea, vomiting, bloating and GI cramping; Denies: hematemesis, coffee ground emesis or fecal incontinence : Denies: dysuria, urinary frequency or urinary urgency Neuro: Denies: headache(s) or dizziness Psych: Denies: anxiety PFS ED PFSH: Medical History DKA (diabetic ketoacidosis) Uncontrolled type 1 diabetes mellitus Surgical History No significant past surgical history Family History Father No problems noted. Mother No problems noted. Social History Smoking and tobacco status: never smoked Second hand smoke exposure: No Smoking risk assessment/counseling performed?: Yes Alcohol intake: never Substance/Drug Use: never Desire information about substance/drug rehabilitation?: No Counseling given: No Adopted: No Lives independently: No Household members: family Housing: House Marital status: Single Highest education level completed: High School Graduate Current occupational status: unemployed Current occupational exposures/hazards: No Physical Exam Const: EXAM LIMITATIONS: no altered mental status GENERAL APPEARANCE: cooperative ORIENTATION/CONSCIOUSNESS: Yes awake, Yes oriented to person, Yes oriented to place and Yes oriented to time HENMT: COMMON NORMALS: normocephalic, atraumatic and hearing grossly normal bilaterally HEAD & SCALP: normocephalic and atraumatic Resp: COMMON NORMALS: normal respiratory effort, No retractions, No use of accessory muscles and clear to auscultation bilaterally EFFORT & INSPECTION: Yes tachypneic AUSCULTATION: clear to auscultation bilaterally Cardio: COMMON NORMALS: regular rhythm and No murmurs present (Cardio) RATE: tachycardic RHYTHM: regular rhythm GI: COMMON NORMALS: Soft to palpation and No hepatosplenomegaly present AUSCULTATION: Yes normoactive bowel sounds PALPATION: Yes Soft to palpation, Yes Tenderness to palpation present (GI) (Diffuse nonspecific), No Guarding due to palpation present (GI) and Yes No hepatosplenomegaly present Extremity: COMMON NORMALS: normal to inspection, capillary refill normal, no clubbing, cyanosis or edema, no calf tenderness and no pedal edema Neuro: SENSORIUM/ORIENTATION: Yes oriented to person, Yes oriented to place and Yes oriented to time Skin: COMMON NORMALS: no rashes or lesions noted GENERAL SKIN EXAM: no rashes or lesions noted Course Vital Signs: Vital signs: Vital Signs Temperature 98.6 F 10/11/22 15:33 Pulse Rate 102 H 10/12/22 06:00 Respiratory Rate 24 H 10/12/22 04:00 Blood Pressure 132/83 10/12/22 04:00 Pulse Oximetry 99 10/12/22 04:00 Oxygen Delivery Me thod Room Air 10/11/22 22:43 MDM - Nausea/Vomiting/Diarrhea Medical Decision Making Acute DKA due to malfunction of his insulin pump. Patient given IV fluids as well as insulin and insulin drip. Fluid bolus ordered also gave sodium bicarb and sodium bicarb drip on his initial labs his potassium was already 5.5 given the amount of fluids were giving him the reversal of his blood sugar needed potassium supplement was started anticipating potassium dropping substantially with resuscitation. Glucose monitored. Reviewed with patient and with hospitalist orders written for DKA. Medical Records I reviewed the patient's medical records. Lab Data I reviewed the patient's lab results. 10/12/22 04:20 10/12/22 04:20 Laboratory Results WBC 9.64 10^3/uL (4.5-13.0) 10/11/22 16:04 RBC 6.02 10^6/uL (3.85-5.65) H 10/11/22 16:04 Hgb 16.90 g/dL (13.2-15.6) H 10/11/22 16:04 Hct 51.5 % (37-53) 10/11/22 16:04 MCV 85.5 fl (82-101) 10/11/22 16:04 MCH 28.1 pg (27-33) 10/11/22 16:04 MCHC 32.8 g/dL (30-55) 10/11/22 16:04 RDW 12.3 % (12.1-15.1) 10/11/22 16:04 Plt Count 373 10^3/cmm (157-399) 10/11/22 16:04 MPV 9.6 fL (7.4-10.4) 10/11/22 16:04 Neut % (Auto) 66.3 % 10/11/22 16:04 Lymph % (Auto) 25.3 % 10/11/22 16:04 [place] % (Auto) 6.6 % 10/11/22 16:04 Eos % (Auto) 0.2 % 10/11/22 16:04 Baso % (Auto) 0.7 % 10/11/22 16:04 Neut # (Auto) 6.38 10^3/uL (1.8-8.0) 10/11/22 16:04 Lymph # (Auto) 2.4 10^3/uL (1.5-6.5) 10/11/22 16:04 [place] # (Auto) 0.6 10^3/uL (0.2-0.9) 10/11/22 16:04 Eos # (Auto) 0.0 10^3/uL (0.0-0.8) 10/11/22 16:04 Baso # (Auto) 0.1 10^3/uL (0.0-0.1) 10/11/22 16:04 Nucleated RBC % (auto) 0 % 10/11/22 16:04 Nucleated RBCs # 0.0 /100WBC 10/11/22 16:04 Specimen Type Arterial 10/11/22 16:01 Sample Site Radial, left 10/11/22 16:01 ABG pH 7.06 (7.35-7.45) L* 10/11/22 16:01 ABG pCO2 7.9 mmHg (35-45) L* 10/11/22 16:01 ABG pO2 132.0 mmHg (80.0-100.0) H 10/11/22 16:01 ABG HCO3 2.3 mmol/L (22-26) L 10/11/22 16:01 ABG O2 Saturation 98.7 10/11/22 16:01 ABG Base Excess -25.4 mmol/L (-2.0-2.0) L 10/11/22 16:01 Rob Test Pos 10/11/22 16:01 A-a O2 Gradient 0.6 mmHg (5-10) L 10/11/22 16:01 Hematocrit 52.8 % (42-52) H 10/11/22 16:01 Hgb O2 Saturation 97.3 % (95-100) 10/11/22 16:01 Carboxyhemoglobin 1.0 %THgb (0.4-20.1) 10/11/22 16:01 Methemoglobin 0.4 % (0.4-1.5) 10/11/22 16:01 Total Hemoglobin 17.2 g/dL (14-18) 10/11/22 16:01 Sodium 135.0 mmol/L (131-143) 10/11/22 16:01 Potassium 5.5 mmol/L (3.5-5.0) H 10/11/22 16:01 Glucose 453.0 mg/dL (70-115) H 10/11/22 16:01 Ionized Calcium 1.3 mmol/L (1.1-1.4) 10/11/22 16:01 O2 Delivery Device Room air 10/11/22 16:01 FiO2 21.0 % 10/11/22 16:01 [place] Lay[place] Line Core Feeder ID Cak 10/11/22 16:01 Sodium 133 mmol/L (136-145) L 10/11/22 16:04 Sodium Cancelled 10/11/22 16:04 Potassium 5.5 mmol/L (3.5-5.1) H 10/11/22 16:04 Potassium Cancelled 10/11/22 16:04 Chloride 95 mmol/L (98-107) L 10/11/22 16:04 Chloride Cancelled 10/11/22 16:04 Carbon Dioxide 5 mmol/L (22-29) L* 10/11/22 16:04 Carbon Dioxide Cancelled 10/11/22 16:04 Anion Gap 38.5 (5-19) H 10/11/22 16:04 Anion Gap Cancelled 10/11/22 16:04 BUN 10 mg/dL (6-20) 10/11/22 16:04 BUN Cancelled 10/11/22 16:04 Creatinine 1.2 mg/dL (0.7-1.2) 10/11/22 16:04 Creatinine Cancelled 10/11/22 16:04 GFR Calculation 77.2 mL/min (90-130) L 10/11/22 16:04 GFR Calculation Cancelled 10/11/22 16:04 Glucose 449 mg/dL (65-115) H 10/11/22 16:04 Glucose Cancelled 10/11/22 16:04 POC Glucose 469 mg/dL (70-110) H 10/11/22 16:42 Calculated Osmolality 295 mOsm/kg (285-295) 10/11/22 16:04 Calculated Osmolality Cancelled 10/11/22 16:04 Lactic Acid 2.0 mmol/L (0.5-2.2) 10/11/22 16:04 Calcium 9.5 mg/dL (8.5-10.5) 10/11/22 16:04 Calcium Cancelled 10/11/22 16:04 Total Bilirubin 0.5 mg/dL (0.15-1.2) 10/11/22 16:04 Total Bilirubin Cancelled 10/11/22 16:04 AST 13 U/L (0-40) 10/11/22 16:04 AST Cancelled 10/11/22 16:04 ALT 14 U/L (0-41) 10/11/22 16:04 ALT Cancelled 10/11/22 16:04 Alkaline Phosphatase 157 U/L (40-130) H 10/11/22 16:04 Alkaline Phosphatase Cancelled 10/11/22 16:04 Total Protein 8.2 g/dL (6.6-8.7) 10/11/22 16:04 Total Protein Cancelled 10/11/22 16:04 Albumin 5.2 g/dL (3.5-5.2) 10/11/22 16:04 Albumin Cancelled 10/11/22 16:04 Globulin 3.0 g/dL (1.3-4.6) 10/11/22 16:04 Globulin Cancelled 10/11/22 16:04 Urine Color Yellow (Yellow) 10/11/22 17:49 Urine Appearance Clear (CLEAR) 10/11/22 17:49 Urine pH 5 (5-7) 10/11/22 17:49 Ur Specific [place] 1.020 (1.005-1.030) 10/11/22 17:49 Urine Protein Trace (Negative) 10/11/22 17:49 Urine Glucose (UA) 4+ (Normal) H 10/11/22 17:49 Urine Ketones 3+ (Negative) H 10/11/22 17:49 Urine Blood Trace (Negative) H 10/11/22 17:49 Urine Nitrate Negative (Negative) 10/11/22 17:49 Urine Bilirubin Neg (Negative) 10/11/22 17:49 Urine Urobilinogen Norm mg/dL (Negative) 10/11/22 17:49 Ur Leukocyte Esterase Negative (Negative) 10/11/22 17:49 Urine RBC 0-4 /hpf (0-2) H 10/11/22 17:49 Urine WBC 0-4 /hpf (0-5) H 10/11/22 17:49 Ur Squamous Epith Cells 0-4 /hpf (0-5) H 10/11/22 17:49 Amorphous Sediment Not Reportable 10/11/22 17:49 Urine Bacteria None /hpf (NONE) 10/11/22 17:49 Urine Opiates Screen Negative ng/mL (Negative) 10/11/22 17:49 Ur Barbiturates Screen Negative ng/mL (Negative) 10/11/22 17:49 Ur Phencyclidine Scrn Negative ng/mL (Negative) 10/11/22 17:49 Ur Amphetamines Screen Negative ng/mL (Negative) 10/11/22 17:49 U Benzodiazepines Scrn Negative ng/mL (Negative) 10/11/22 17:49 Urine Cocaine Screen Negative ng/mL (Negative) 10/11/22 17:49 U Marijuana (THC) Screen Negative ng/mL (Negative) 10/11/22 17:49 Serum Ketones Positive (Negative) H 10/11/22 16:04 Critical Care Time Critical Care Time: Critical Care Time: Yes Total Critical Care Time: 40 Attestation: The high probability of a clinically significant, sudden or life threatening deterioration of the patient's cardiovascular respiratory endocrine system(s) required my full and direct attention, intervention and personal management. The critical care time is as shown. This time is in addition to time spent performing any reported procedures but includes the following: [x] Data and vital sign review and interpretation [x] Patient assessment, examination and intervention [x] Documentation [x] Medication orders and management Discharge Plan Discharge Patient Disposition: Admitted As Inpatient Admit Provider: Demario Guerin Clinical Impression: DKA (diabetic ketoacidosis), Poorly controlled type 1 diabetes mellitus Condition: Stable Coding Level of Care Code ED Technical Communicator for Tiny Geller
[2022-10-11 16:10] LABS: Basophils # 0.1 10^3/uL (0.0-0.1); Basophils % 0.7 %; Eosinophils % 0.2 %; Hematocrit 51.5 % (37-53); Lymphocytes # 2.4 10^3/uL (1.5-6.5); Lymphocytes % 25.3 %; Mean Corpuscular HGB Conc 32.8 g/dL (30-55); Mean Corpuscular Hemoglobin 28.1 pg (27-33); Mean Corpuscular Volume 85.5 fl (82-101); Mean Platelet Volume 9.6 fL (7.4-10.4); Monocytes # 0.6 10^3/uL (0.2-0.9); Monocytes % 6.6 %; Neutrophils # 6.38 10^3/uL (1.8-8.0); Neutrophils % 66.3 %; Nucleated Red Blood Cells % 0 %; Platelet Count 373 10^3/cmm (157-399); Red Blood Count 6.02 10^6/uL (3.85-5.65); Red Cell Distribution Width 12.3 % (12.1-15.1); White Blood Count 9.64 10^3/uL (4.5-13.0)
[2022-10-11 16:12] LABS: Alveolar-Arterial Oxygen Gradi 0.6 mmHg (5-10); Arterial Blood Gas Hematocrit 52.8 % (42-52); Base Excess ABG -25.4 mmol/L (-2.0-2.0); Blood Gas Allen Test Pos; Blood Gas Operator Identificat CAK; Blood Gas Sample Site Radial, left; Blood Gas Sample Type Arterial; HCO3 ABG 2.3 mmol/L (22-26); HGB O2 Sat 97.3 % (95-100); Ionized Calcium Level - ABG 1.3 mmol/L (1.1-1.4); Methemoglobin 0.4 % (0.4-1.5); Oxygen Device ROOM AIR; Oxygen Saturation ABG 98.7; Potassium Level - ABG 5.5 mmol/L (3.5-5.0); Total Hemoglobin 17.2 g/dL (14-18)
[2022-10-11 16:13] LABS: ABG PCO2 7.9 mmHg (35-45); ABG PH Result 7.06 (7.35-7.45)
[2022-10-11] MEDS: ondansetron 2 mg/ML SDV 2 mL 4 MG IVP (16:13)
--- NOTE | 2022-10-11 16:31 | ECG_ITS ---
[facility] Test Date: 2022-10-11 Pat Name: Darrel Mcduffie Department: Room: Gender: Male Dietetic Intern: : 2000 Requested By: Lam Mayfield Order Number: [id number] Leti MD: Dmitriy Loza M.D. Measurements Intervals [place] Rate: 127 P: 62 [place]: 162 QRS: 9 QRSD: 91 T: 46 QT: 298 QTc: 434 Interpretive Statements SINUS TACHYCARDIA ABNORMAL RHYTHM ECG Compared to ECG 06/26/2022 23:49:10 No significant changes Electronically Signed On 10-12-2022 19:59:08 CDT by Dmitriy Loza M.D. [email or web address] ([id number]
--- NOTE | 2022-10-11 16:36 | PC.PHAR ---
pt states he takes care of his own medications-pt states he no longer takes toujeo u-300 45 units q12h filled 06/29/22 14d/s-pt states he takes vitamin d3 pt states he thinks its 10,000 units q7d-
[2022-10-11 16:42] LABS: Ketone (Acetest) Serum Positive (Negative)
[2022-10-11 16:46] LABS: Glucose Point of Care 469 mg/dL (70-110)
[2022-10-11 16:48] LABS: Alanine Aminotransferase 14 U/L (0-41); Albumin Level 5.2 g/dL (3.5-5.2); Alkaline Phosphatase 157 U/L (40-130); Anion Gap 38.5 (5-19); Aspartate Amino Transferase 13 U/L (0-40); Blood Urea Nitrogen 10 mg/dL (6-20); Calcium 9.5 mg/dL (8.5-10.5); Chloride 95 mmol/L (98-107); Glomerular Filtration Rate 77.2 mL/min (90-130); Glucose 449 mg/dL (65-115); Osmolality Calculated 295 mOsm/kg (285-295); Potassium 5.5 mmol/L (3.5-5.1); Sodium 133 mmol/L (136-145); Total Bilirubin 0.5 mg/dL (0.15-1.2); Total Protein 8.2 g/dL (6.6-8.7)
[2022-10-11 17:10] LABS: Carbon Dioxide 5 mmol/L (22-29)
[2022-10-11] MEDS: potassium chloride premix 100 ML 25 MEQ IV (17:40)
[2022-10-11] MEDS: sodium chloride 0.9% 1,000 ML 999 ML IV ×2 (17:47→20:36)
--- NOTE | 2022-10-11 17:47 | PM.HP ---
Providers/Chief Complaint Primary Care Provider: Ryanne Kimball MD Chief Complaint: diabetic, possible DKA History of Present Illness Darrel Mcduffie is a 22 year old male with a past medical history of type 1 diabetes mellitus, with insulin pump, who presents [facility], as his insulin pump yesterday got dislodged, it is nonfunctioning, this morning his blood sugars were elevated he had to give dose of 20 units of insulin, comes in because shortness of breath, nausea, vomiting. In the emergency room he was diagnosed with diabetic ketoacidosis, pH of 7.06, serum sodium 133, potassium 5.5, bicarb 5, anion gap 30.5, blood sugar 449, tachypneic, tachycardic, normotensive, alert oriented x3, he is given 3 L bolus normal saline, receiving K rider, has magnesium ordered, has received bicarb 100 mg 1 push, insulin drip to be started, he is agreeable for hospital admission, moved to ICU, started on DKA protocol, denies alcoholism, denies smoking, denies any drug use, denies any dysuria, denies any fevers or cough Review of Systems Const: Denies: fever(s) or chills Eyes: Denies: change in vision Card: Denies: chest pain or palpitations Resp: Reports: dyspnea; Denies: non-productive cough GI: Denies: abdominal pain : Denies: flank pain or dysuria Musc: Denies: neck pain or back pain Skin/Breast: Denies: rash Neuro: Denies: headache(s) Medications/Allergies Home Medications Medication Instructions Recorded Confirmed Last Taken Type pen needle, diabetic 32 gauge x #450 ea 05/10/21 10/11/22 Unknown Rx (Comfort EZ Pen [place]) blood-glucose transmitter (Dexcom #6 ea 02/04/22 10/11/22 Unknown Rx G6 Transmitter device) blood-glucose sensor (Dexcom G6 #9 ea 08/24/22 10/11/22 Unknown Rx Sensor device) cholecalciferol (vitamin D3) 125 10,000 unit PO Q7D 10/11/22 10/11/22 Unknown History mcg (5,000 unit) tablet (Vitamin D3) glucagon HCl 1 mg solution for 1 mg SUBCUT Q20M PRN blood sugar 10/11/22 10/11/22 Unknown History injection (Glucagon (HCl) Emergency Kit) insulin lispro 100 unit/mL See Rx Instructions .Route .COMPLEX 10/11/22 10/11/22 10/11/22 History subcutaneous cartridge (Humalog U-100 Insulin) multivitamin 1 tab PO QAM 10/11/22 10/11/22 10/11/22 History Allergies Allergy/AdvReac Type Severity Reaction Status Date / Time No Known Allergies Allergy Verified 10/11/22 16:32 PFSH Acute PFSH: Medical History (Updated 10/11/22 @ 18:02 by Demario Guerin MD) DKA (diabetic ketoacidosis) Uncontrolled type 1 diabetes mellitus Surgical History No significant past surgical history Family History Father No problems noted. Mother No problems noted. Social History Smoking and tobacco status: never smoked Second hand smoke exposure: No Smoking risk assessment/counseling performed?: Yes Alcohol intake: never Substance/Drug Use: never Desire information about substance/drug rehabilitation?: No Counseling given: No Adopted: No Lives independently: No Household members: family Housing: House Marital status: Single Highest education level completed: High School Graduate Current occupational status: unemployed Current occupational exposures/hazards: No Vitals/I&O/Wt Last Vital Signs Temp 98.6 F 10/11/22 15:33 Pulse 133 H 10/11/22 15:33 Resp 20 H 10/11/22 15:33 BP 138/80 10/11/22 15:33 Pulse Ox 96 10/11/22 15:33 O2 Del Method Room Air 10/11/22 15:33 Weight last 48 hrs Weight 91.172 kg Physical Exam Const: COMMON NORMALS: no acute distress and patient oriented x3 GENERAL APPEARANCE: cooperative, well kempt and well developed HENMT: COMMON NORMALS: normocephalic and Normal external nose present HEAD & SCALP: normocephalic FACE & SINUS: normal facial exam NOSE: Normal external nose present Eye: COMMON NORMALS: Equal, round and reactive pupils present, EOMs intact bilaterally, conjunctivae normal and no scleral icterus CONJUNCTIVA: Yes conjunctivae normal PUPIL: Yes Equal, round and reactive pupils present Neck/C-Spine: COMMON NORMALS: full ROM, no lymphadenopathy, no JVD, Thyroid normal and No carotid bruits THYROID: Thyroid normal Lymph: LYMPHATIC: no lymphadenopathy noted Chest: COMMONS NORMALS: normal inspection of the chest Resp: COMMON NORMALS: normal respiratory effort, No retractions, No use of accessory muscles and clear to auscultation bilaterally AUSCULTATION: clear to auscultation bilaterally OTHER: tachypnea Cardio: COMMON NORMALS: regular rhythm, S1 normal heart sound present, S2 normal heart sound present, No murmurs present (Cardio) and Peripheral pulses 2+ throughout RATE: tachycardic RHYTHM: regular rhythm HEART SOUNDS: S1 normal heart sound present and S2 normal heart sound present PERIPHERAL PULSES: Peripheral pulses 2+ throughout GI: COMMON NORMALS: Normal to inspection, nondistended, normoactive bowel sounds present, Soft to palpation and non-tender : COMMON NORMALS: Yes no CVA tenderness BLADDER/KIDNEY EXAM: Yes no CVA tenderness Back/Pelvis: COMMON NORMALS: no CVA tenderness Extremity: COMMON NORMALS: normal to inspection, full ROM, capillary refill normal, no calf tenderness and no pedal edema Neuro: COMMON NORMALS: patient oriented x3, CN's II-XII intact bilaterally and moves all extremities MENINGEAL SIGNS: Yes no meningeal signs Psych: COMMON NORMALS: mental status grossly normal, Normal thought process present, cooperative and speech normal APPEARANCE: Yes well kempt SPEECH: Yes normal speech THOUGHT PROCESS: Normal thought process present Data 10/11/22 16:04 10/11/22 16:04 CXR: My impression: No acute infiltrate EKG 1: My Interpretation: Sinus tachycardia A&P Assessment and plan (1) DKA (diabetic ketoacidosis): Plan Diabetic ketoacidosis -Admit to ICU -Plan -Currently receiving diuretic, potassium 5.5 -Fluids at 150 cc an hour normal saline -Start insulin drip -Monitor blood sugars every hour -BMP, mag, Phos every 4 hours -Once blood sugar drops below 200, switch to D5 normal saline with 40 KCl -If potassium drops below 4.5, will have to hold insulin drip replace potassium, then resume -Once anion gap is below 12, we will switch to subcu insulin and long-acting -Follow magnesium, phosphorus and next blood draw -Monitor respiratory status closely -We will have to reach out to Dr. Potts about patient's insulin pump -Monitor closely in ICU -Full code Attestations Medical Necessity Statement*: Patient requires hospitalization for diabetic ketoacidosis with a pH of 7.06, bicarb of 5, potassium of 5.5, tachypnea, tachycardia, Coding Level of Care Code Critical Care >/= 30 minutes Critical care time (in minutes): 50 The high probability of a clinically significant, sudden or life threatening deterioration, as referenced in this documentation, required my full and direct attention, intervention and personal management. The critical care time shown is in addition to time spent performing any reported separately billable procedures and includes the following: [x] Data and vital sign review and interpretation [x] Patient assessment, examination and intervention [x] Medication orders and management [x] Patient/Family updates as able [x] Care Coordination and Documentation. Diagnoses DKA (diabetic ketoacidosis) E11.10
[2022-10-11 18:07] LABS: Glucose Urine UA 4+ (Normal); Ketones Urine 3+ (Negative); Protein Urine Trace (Negative); Urine Appearance Clear (CLEAR); Urine Color Yellow (Yellow); pH Urine 5 (5-7)
[2022-10-11 18:08] LABS: Add Urine Culture? No; Add Urine Microscopic? YES; Bilirubin Urine Neg (Negative); Blood Urine Trace (Negative); Leukocyte Esterase Urine Negative (Negative); Nitrate Urine Negative (Negative); RBC Urine 0-4 /hpf (0-2); Squamous Epithelial Cell Urine 0-4 /hpf (0-5); Urobilinogen Urine Norm (Negative); WBC Urine 0-4 /hpf (0-5)
[2022-10-11] MEDS: sodium bicarbonate 1 mEq/mL SDV 50mL 100 MEQ IVP (18:16)
[2022-10-11] MEDS: insulin regular-human 250 UNIT in sodium chloride 0.9% 250 ML 9.6 UNIT IV (18:59)
[2022-10-11] MEDS: pantoprazole 40 mg SDV IVP (19:43)
[2022-10-11] MEDS: sodium chloride 0.9% 1,000 ML 150 ML IV (19:44)
[2022-10-11] MEDS: enoxaparin 40 mg/0.4 mL Syringe SUBCUT (19:44)
[2022-10-11 21:04] LABS: Blood Urea Nitrogen 9 mg/dL (6-20); Calcium 8.4 mg/dL (8.5-10.5); Chloride 105 mmol/L (98-107); Glomerular Filtration Rate 107.6 mL/min (90-130); Glucose 328 mg/dL (65-115); Lipase 15 U/L (13-60); Osmolality Calculated 295 mOsm/kg (285-295); Phosphorus 3.4 mg/dL (2.5-4.5); Sodium 137 mmol/L (136-145); Thyroid Stimulating Hormone 0.35 uIU/mL (0.27-4.20)
[2022-10-11 21:18] LABS: Anion Gap 33.5 (5-19); Potassium 5.5 mmol/L (3.5-5.1)
[2022-10-11 21:20] LABS: Carbon Dioxide 4 mmol/L (22-29)
[2022-10-11 21:30] LABS: Glucose Point of Care 272 mg/dL (70-110)
[2022-10-11 21:36] LABS: Glucose Point of Care 373 mg/dL (70-110)
[2022-10-11 21:36] LABS: Glucose Point of Care 357 mg/dL (70-110)
[2022-10-11 21:45] LABS: Alveolar-Arterial Oxygen Gradi 0.1 mmHg (5-10); Arterial Blood Gas Hematocrit 50.9 % (42-52); Base Excess ABG -31.1 mmol/L (-2.0-2.0); Blood Gas Allen Test Pos; Blood Gas Sample Site Radial, left; Blood Gas Sample Type Arterial; Carboxyhemoglobin 1.3 %THgb (0.4-20.1); HCO3 ABG 1.4 mmol/L (22-26); Ionized Calcium Level - ABG 1.3 mmol/L (1.1-1.4); Methemoglobin 0.5 % (0.4-1.5); Oxygen Saturation ABG 98.8; Potassium Level - ABG 4.5 mmol/L (3.5-5.0); Total Hemoglobin 16.6 g/dL (14-18)
[2022-10-11] MEDS: labetalol 5 mg/mL SDV 20mL 10 MG IVP (21:45)
[2022-10-11 21:48] LABS: ABG PCO2 7.8 mmHg (35-45); ABG PH Result 6.86 (7.35-7.45)
--- NOTE | 2022-10-11 21:58 | PM.MISC ---
Miscellaneous Note Purpose of Documentation: Checked on him earlier in the night, reported he was feeling slightly better, still nauseated, not vomiting. Continue insulin drip, IV fluid infusion NS 200 mL/h. On recheck chemistry bicarb noted worsened down to 4. Recheck ABG requested, noted pH 7.86. Requesting bicarb.
[2022-10-11 22:58] LABS: Glucose Point of Care 218 mg/dL (70-110)
[2022-10-11 23:55] LABS: Glucose Point of Care 257 mg/dL (70-110)
[2022-10-11 23:55] LABS: Glucose Point of Care 228 mg/dL (70-110)
[2022-10-12] VITALS (227 sets, daily range): BP systolic 112–155; BP diastolic 61–99; PULSE 87–138; RESP 13–38; TEMP 37.1; O2SAT 94–100
[2022-10-12] MEDS: sodium chloride 0.9% 1,000 ML 150 ML IV (00:39)
[2022-10-12 00:57] LABS: Glucose Point of Care 195 mg/dL (70-110)
[2022-10-12] MEDS: dextrose 5%-sod chloride 0.45% 1,000 ML 200 ML IV ×3 (01:19→11:07)
[2022-10-12 02:11] LABS: Glucose Point of Care 181 mg/dL (70-110)
[2022-10-12 02:49] LABS: Magnesium 1.9 mg/dL (1.7-2.3); Phosphorus 1.2 mg/dL (2.5-4.5)
[2022-10-12 02:54] LABS: Glucose Point of Care 174 mg/dL (70-110)
[2022-10-12 04:01] LABS: Glucose Point of Care 156 mg/dL (70-110)
[2022-10-12 05:01] LABS: Glucose Point of Care 187 mg/dL (70-110)
[2022-10-12 05:25] LABS: Basophils % 0.3 %; Hematocrit 46.4 % (37-53); Lymphocytes % 14.8 %; Mean Corpuscular HGB Conc 32.8 g/dL (30-55); Mean Corpuscular Hemoglobin 28.4 pg (27-33); Mean Corpuscular Volume 86.7 fl (82-101); Mean Platelet Volume 10.9 fL (7.4-10.4); Monocytes # 1.3 10^3/uL (0.2-0.9); Monocytes % 9.5 %; Neutrophils # 10.13 10^3/uL (1.8-8.0); Neutrophils % 74.5 %; Nucleated Red Blood Cells % 0 %; Platelet Count 234 10^3/cmm (157-399); Red Blood Count 5.35 10^6/uL (3.85-5.65); Red Cell Distribution Width 12.4 % (12.1-15.1); White Blood Count 13.59 10^3/uL (4.5-13.0)
[2022-10-12 05:54] LABS: Glucose Point of Care 191 mg/dL (70-110)
[2022-10-12 06:06] LABS: Alanine Aminotransferase 13 U/L (0-41); Albumin Level 4.2 g/dL (3.5-5.2); Alkaline Phosphatase 126 U/L (40-130); Blood Urea Nitrogen 6 mg/dL (6-20); C Reactive Protein 13.1 mg/L (0.0-4.9); Calcium 8.4 mg/dL (8.5-10.5); Chloride 108 mmol/L (98-107); Globulin 2.7 g/dL (1.3-4.6); Glomerular Filtration Rate 123.2 mL/min (90-130); Glucose 173 mg/dL (65-115); Osmolality Calculated 284 mOsm/kg (285-295); Sodium 136 mmol/L (136-145); Total Bilirubin 0.5 mg/dL (0.15-1.2); Total Protein 6.9 g/dL (6.6-8.7)
[2022-10-12 06:18] LABS: Anion Gap 24.5 (5-19); Aspartate Amino Transferase 14 U/L (0-40); Potassium 4.5 mmol/L (3.5-5.1)
[2022-10-12 06:21] LABS: Carbon Dioxide 8 mmol/L (22-29)
[2022-10-12 06:24] LABS: Anion Gap 28.3 (5-19); Blood Urea Nitrogen 7 mg/dL (6-20); Calcium 8.6 mg/dL (8.5-10.5); Carbon Dioxide 6 mmol/L (22-29); Chloride 108 mmol/L (98-107); Glomerular Filtration Rate 107.6 mL/min (90-130); Glucose 189 mg/dL (65-115); Osmolality Calculated 289 mOsm/kg (285-295); Potassium 4.3 mmol/L (3.5-5.1); Sodium 138 mmol/L (136-145)
[2022-10-12 06:35] LABS: Magnesium 1.9 mg/dL (1.7-2.3); Phosphorus 1.1 mg/dL (2.5-4.5)
[2022-10-12 07:00] LABS: Amphetamines Screen Urine Negative (Negative); Barbiturates Screen Urine Negative (Negative); Benzodiazepines Screen Urine Negative (Negative); Cocaine Screen Urine Negative (Negative); Opiate Screen Urine Negative (Negative); PCP Screen Urine Negative (Negative); THC Screen Urine Negative (Negative)
[2022-10-12 07:13] LABS: Glucose Point of Care 172 mg/dL (70-110)
[2022-10-12 08:13] LABS: Glucose Point of Care 145 mg/dL (70-110)
[2022-10-12 08:56] LABS: Glucose Point of Care 185 mg/dL (70-110)
[2022-10-12 08:59] LABS: Anion Gap 18.8 (5-19); Blood Urea Nitrogen 6 mg/dL (6-20); Calcium 8.4 mg/dL (8.5-10.5); Carbon Dioxide 12 mmol/L (22-29); Chloride 109 mmol/L (98-107); Glomerular Filtration Rate 123.2 mL/min (90-130); Glucose 165 mg/dL (65-115); Magnesium 1.7 mg/dL (1.7-2.3); Osmolality Calculated 283 mOsm/kg (285-295); Phosphorus 1.1 mg/dL (2.5-4.5); Potassium 3.8 mmol/L (3.5-5.1); Sodium 136 mmol/L (136-145)
[2022-10-12 10:00] LABS: Glucose Point of Care 160 mg/dL (70-110)
[2022-10-12 11:02] LABS: Glucose Point of Care 173 mg/dL (70-110)
[2022-10-12] MEDS: potassium phosphate (mEq K) 40 MEQ in sodium chloride 0.9% (100 ml) 100 ML 27.13 MEQ IV (11:58)
[2022-10-12 12:50] LABS: Anion Gap 18.7 (5-19); Blood Urea Nitrogen 5 mg/dL (6-20); Calcium 8.6 mg/dL (8.5-10.5); Carbon Dioxide 14 mmol/L (22-29); Chloride 106 mmol/L (98-107); Glomerular Filtration Rate 143.8 mL/min (90-130); Glucose 147 mg/dL (65-115); Magnesium 1.8 mg/dL (1.7-2.3); Osmolality Calculated 280 mOsm/kg (285-295); Phosphorus 1.4 mg/dL (2.5-4.5); Potassium 3.7 mmol/L (3.5-5.1); Sodium 135 mmol/L (136-145)
[2022-10-12] MEDS: dextrose 5%-ns 0.45% + KCl 40 1,000 ML 125 MEQ IV ×2 (16:13→23:25)
[2022-10-12 17:11] LABS: Glucose Point of Care 191 mg/dL (70-110)
[2022-10-12 17:11] LABS: Glucose Point of Care 174 mg/dL (70-110)
[2022-10-12 17:11] LABS: Glucose Point of Care 204 mg/dL (70-110)
[2022-10-12 17:11] LABS: Glucose Point of Care 150 mg/dL (70-110)
[2022-10-12 17:11] LABS: Glucose Point of Care 139 mg/dL (70-110)
[2022-10-12 17:11] LABS: Glucose Point of Care 172 mg/dL (70-110)
[2022-10-12] MEDS: pantoprazole 40 mg SDV IVP (18:03)
[2022-10-12] MEDS: enoxaparin 40 mg/0.4 mL Syringe SUBCUT (18:04)
--- NOTE | 2022-10-12 18:16 | P.PN_ITS ---
Subjective Subjective: Patient was seen this morning, he feels significantly better, still tachycardic, tachypneic but he tells me he feels overall significantly better, overnight he received 2 A of bicarb, received potassium and phosphorus replacement, his anion gap is still 18, blood sugars in the 200s, Vitals/I&O/Wt Last Vital Signs Temp 98.6 F 10/11/22 15:33 Pulse 100 10/12/22 16:05 Resp 25 H 10/12/22 16:05 BP 128/83 10/12/22 16:05 Pulse Ox 98 10/12/22 16:05 O2 Del Method Room Air 10/12/22 07:59 10/12/22 10/12/22 10/12/22 06:59 14:59 22:59 Intake Total 2364.007 / 7217.659 1151.2189 / 1151.2189 1108.5106 / 2259.7295 Output Total 2375 / 4775 1000 / 1000 1000 / 2000 Balance -10.993 / 2442.286 198.4736 / 151.2189 108.5106 / 259.7295 Weight last 48 hrs Weight 91.172 kg Physical Exam Const: COMMON NORMALS: no acute distress and patient oriented x3 Resp: COMMON NORMALS: normal respiratory effort, No retractions, No use of accessory muscles and clear to auscultation bilaterally AUSCULTATION: clear to auscultation bilaterally Cardio: COMMON NORMALS: regular rate, regular rhythm, S1 normal heart sound present and S2 normal heart sound present RATE: regular rate RHYTHM: regular rhythm HEART SOUNDS: S1 normal heart sound present and S2 normal heart sound present GI: COMMON NORMALS: Normal to inspection, nondistended, normoactive bowel sounds present and non-tender Extremity: COMMON NORMALS: no pedal edema Neuro: COMMON NORMALS: patient oriented x3 Psych: COMMON NORMALS: mental status grossly normal Data 10/12/22 04:20 10/12/22 12:18 A&P Assessment and plan (1) DKA (diabetic ketoacidosis): Plan Diabetic ketoacidosis -Admit to ICU -Plan -Continue insulin drip -Switch to D5 half-normal saline with 40 KCl -We will give another 40 potassium phosphorus -Monitor blood sugars every hour -BMP, mag, Phos every 4 hours -Once blood sugar drops below 200, switch to D5 normal saline with 40 KCl -If potassium drops below 4.5, will have to hold insulin drip replace potassium, then resume -Once anion gap is below 14, we will switch to subcu insulin and long-acting -Follow magnesium, phosphorus and next blood draw -Monitor respiratory status closely -We will have to reach out to Dr. Potts about patient's insulin pump -Monitor closely in ICU -Full code Attestations Medical Necessity Statement*: Patient requires hospitalization for diabetic ketoacidosis, still has a acidosis, anion gap still he seen regarding his drip, BMP, potassium, magnesium, phosphorus every 4 hours, monitoring blood sugars, monitoring vitals, Coding Level of Care Code Critical Care >/= 30 minutes Critical care time (in minutes): 40 The high probability of a clinically significant, sudden or life threatening deterioration, as referenced in this documentation, required my full and direct attention, intervention and personal management. The critical care time shown is in addition to time spent performing any reported separately billable procedures and includes the following: [x] Data and vital sign review and interpretation [x ] Patient assessment, examination and intervention [x] Medication orders and management [x] Patient/Family updates as able [x] Care Coordination and Documentation. Diagnoses DKA (diabetic ketoacidosis) E11.10
[2022-10-12 18:20] LABS: Glucose Point of Care 200 mg/dL (70-110)
[2022-10-12 18:29] LABS: Blood Urea Nitrogen 4 mg/dL (6-20); Calcium 8.4 mg/dL (8.5-10.5); Carbon Dioxide 9 mmol/L (22-29); Chloride 105 mmol/L (98-107); Glomerular Filtration Rate 171.8 mL/min (90-130); Glucose 196 mg/dL (65-115); Magnesium 1.8 mg/dL (1.7-2.3); Osmolality Calculated 276 mOsm/kg (285-295); Phosphorus 2.6 mg/dL (2.5-4.5); Sodium 132 mmol/L (136-145)
[2022-10-12 18:30] LABS: Anion Gap 22.5 (5-19); Potassium 4.5 mmol/L (3.5-5.1)
[2022-10-12 19:06] LABS: Glucose Point of Care 166 mg/dL (70-110)
[2022-10-12 20:05] LABS: Glucose Point of Care 169 mg/dL (70-110)
[2022-10-12 21:03] LABS: Glucose Point of Care 166 mg/dL (70-110)
[2022-10-12 21:34] LABS: Blood Urea Nitrogen 3 mg/dL (6-20); Calcium 9.1 mg/dL (8.5-10.5); Carbon Dioxide 14 mmol/L (22-29); Chloride 107 mmol/L (98-107); Glomerular Filtration Rate 171.8 mL/min (90-130); Glucose 177 mg/dL (65-115); Magnesium 1.7 mg/dL (1.7-2.3); Osmolality Calculated 283 mOsm/kg (285-295); Phosphorus 1.6 mg/dL (2.5-4.5); Sodium 136 mmol/L (136-145)
[2022-10-12 21:43] LABS: Anion Gap 18.8 (5-19); Potassium 3.8 mmol/L (3.5-5.1)
[2022-10-12 22:16] LABS: Glucose Point of Care 157 mg/dL (70-110)
[2022-10-12 23:27] LABS: Glucose Point of Care 166 mg/dL (70-110)
[2022-10-13] VITALS (66 sets, daily range): BP systolic 105–141; BP diastolic 48–89; PULSE 82–125; RESP 11–31; O2SAT 95–100
[2022-10-13 01:07] LABS: Glucose Point of Care 150 mg/dL (70-110)
[2022-10-13 01:57] LABS: Anion Gap 15.3 (5-19); Blood Urea Nitrogen 3 mg/dL (6-20); Carbon Dioxide 18 mmol/L (22-29); Chloride 107 mmol/L (98-107); Glomerular Filtration Rate 143.8 mL/min (90-130); Glucose 163 mg/dL (65-115); Magnesium 1.6 mg/dL (1.7-2.3); Osmolality Calculated 284 mOsm/kg (285-295); Phosphorus 1.3 mg/dL (2.5-4.5); Potassium 3.3 mmol/L (3.5-5.1); Sodium 137 mmol/L (136-145)
[2022-10-13 02:07] LABS: Glucose Point of Care 166 mg/dL (70-110)
[2022-10-13] MEDS: lidocaine 1% 5 ML in potassium chloride premix 100 ML 26.25 ML IV (02:33)
[2022-10-13 03:22] LABS: Glucose Point of Care 249 mg/dL (70-110)
[2022-10-13] MEDS: sodium chloride 0.9% 1,000 ML 125 ML IV (03:54)
[2022-10-13 04:41] LABS: Glucose Point of Care 275 mg/dL (70-110)
--- NOTE | 2022-10-13 04:50 | PC.NURSE ---
K+ reported to hospitalist and order to stop insulin drip was received. 40 meq K+ replacement initiated. IV fluids switched to NS @125. Restart Insulin drip once K+ is transfused.
[2022-10-13 05:26] LABS: Alanine Aminotransferase 9 U/L (0-41); Albumin Level 3.8 g/dL (3.5-5.2); Alkaline Phosphatase 112 U/L (40-130); Aspartate Amino Transferase 11 U/L (0-40); Blood Urea Nitrogen 4 mg/dL (6-20); C Reactive Protein 16.1 mg/L (0.0-4.9); Calcium 8.6 mg/dL (8.5-10.5); Carbon Dioxide 17 mmol/L (22-29); Chloride 105 mmol/L (98-107); Globulin 2.3 g/dL (1.3-4.6); Glomerular Filtration Rate 171.8 mL/min (90-130); Glucose 279 mg/dL (65-115); Magnesium 1.7 mg/dL (1.7-2.3); Osmolality Calculated 291 mOsm/kg (285-295); Phosphorus 2.2 mg/dL (2.5-4.5); Sodium 137 mmol/L (136-145); Total Bilirubin 0.7 mg/dL (0.15-1.2); Total Protein 6.1 g/dL (6.6-8.7)
[2022-10-13 07:17] LABS: Basophils % 0.3 %; Eosinophils # 0.1 10^3/uL (0.0-0.8); Eosinophils % 0.9 %; Hematocrit 42.5 % (37-53); Lymphocytes # 2.4 10^3/uL (1.5-6.5); Lymphocytes % 34.3 %; Mean Corpuscular HGB Conc 33.9 g/dL (30-55); Mean Corpuscular Hemoglobin 28.5 pg (27-33); Mean Platelet Volume 9.5 fL (7.4-10.4); Monocytes # 0.7 10^3/uL (0.2-0.9); Monocytes % 9.7 %; Neutrophils # 3.76 10^3/uL (1.8-8.0); Neutrophils % 54.5 %; Nucleated Red Blood Cells % 0 %; Platelet Count 226 10^3/cmm (157-399); Red Blood Count 5.06 10^6/uL (3.85-5.65); Red Cell Distribution Width 12.7 % (12.1-15.1)
[2022-10-13 08:15] LABS: Glucose Point of Care 441 mg/dL (70-110)
[2022-10-13 08:47] LABS: Glucose Point of Care 364 mg/dL (70-110)
[2022-10-13 09:57] LABS: Glucose Point of Care 280 mg/dL (70-110)
[2022-10-13 10:58] LABS: Glucose Point of Care 215 mg/dL (70-110)
[2022-10-13 12:05] LABS: Glucose Point of Care 175 mg/dL (70-110)
[2022-10-13] MEDS: dextrose 5%-ns 0.45% + KCl 40 1,000 ML 125 MEQ IV (12:18)
[2022-10-13 12:26] LABS: Anion Gap 13.6 (5-19); Blood Urea Nitrogen 7 mg/dL (6-20); Calcium 9.2 mg/dL (8.5-10.5); Carbon Dioxide 21 mmol/L (22-29); Chloride 109 mmol/L (98-107); Glomerular Filtration Rate 143.8 mL/min (90-130); Glucose 199 mg/dL (65-115); Magnesium 1.8 mg/dL (1.7-2.3); Osmolality Calculated 294 mOsm/kg (285-295); Potassium 3.6 mmol/L (3.5-5.1); Sodium 140 mmol/L (136-145)
[2022-10-13] MEDS: insulin glargine 100 units/1 mL 20 UNIT SUBCUT (13:14)
--- NOTE | 2022-10-13 13:15 | P.DS_ITS ---
Discharge Providers Date of Admission: 10/11/22 17:56 Date of Discharge: October 13, 2022 Attending Provider at Admission: Demario Guerin MD Attending Provider at Discharge: Juve Kimball MD Primary Care Provider: Ryanne Kimball MD Diagnoses at Discharge Discharge Diagnosis (1) DKA (diabetic ketoacidosis): Status: Acute Reason for Visit 2 Reason for Visit: diabetic, possible DKA Hospital Course Hospital Course Patient presented to the hospital with complaints of insulin pump getting dislodged, nonfunctioning, and nausea and vomiting occurring. He was found to be significantly acidotic, and DKA. He was hydrated, started on insulin drip, and insulin/DKA protocol was instituted. He was admitted to the ICU for this. During his hospital stay he had overall clearing of his acidosis. He did have his insulin drip stopped briefly in the morning of October 12 to accommodate for some potassium. Prior to this his anion gap had improved significantly to 19, and following that an anion gap of approximately 13 and bicarb of 21. He was ab le to eat without difficulty. He was transitioned to Lantus, and was able to transition home with instructions to initiate his insulin pump that night. He was encouraged to continue hydration, avoid overheating, and be compliant with the use of his insulin pump. He will follow-up with his primary care provider as well as endocrinology. Physical Exam Narrative: General exam no distress Neck is supple Cardiovascular regular rhythm, borderline tachycardic Lungs clear Abdomen is soft, nontender Extremities no cyanosis clubbing or edema Discharge Data Studies Completed and Pending Completed Studies During Hospitalization Category Date Time Status XR chest 1V portable [id number] Stat Exams 10/11/22 15:54 Completed Laboratory Results WBC 6.90 10^3/uL (4.5-13.0) 10/13/22 06:28 Corrected WBC Cancelled 10/13/22 03:59 RBC 5.06 10^6/uL (3.85-5.65) 10/13/22 06:28 Hgb 14.40 g/dL (13.2-15.6) 10/13/22 06:28 Hct 42.5 % (37-53) 10/13/22 06:28 MCV 84.0 fl (82-101) 10/13/22 06:28 MCH 28.5 pg (27-33) 10/13/22 06:28 MCHC 33.9 g/dL (30-55) 10/13/22 06:28 RDW 12.7 % (12.1-15.1) 10/13/22 06:28 Plt Count 226 10^3/cmm (157-399) 10/13/22 06:28 MPV 9.5 fL (7.4-10.4) 10/13/22 06:28 Gran % Cancelled 10/13/22 03:59 Neut % (Auto) 54.5 % 10/13/22 06:28 Lymph % (Auto) 34.3 % 10/13/22 06:28 [place] % (Auto) 9.7 % 10/13/22 06:28 Eos % (Auto) 0.9 % 10/13/22 06:28 Baso % (Auto) 0.3 % 10/13/22 06:28 Neut # (Auto) 3.76 10^3/uL (1.8-8.0) 10/13/22 06:28 Lymph # (Auto) 2.4 10^3/uL (1.5-6.5) 10/13/22 06:28 [place] # (Auto) 0.7 10^3/uL (0.2-0.9) 10/13/22 06:28 Eos # (Auto) 0.1 10^3/uL (0.0-0.8) 10/13/22 06:28 Baso # (Auto) 0.0 10^3/uL (0.0-0.1) 10/13/22 06:28 Absolute Gran (auto) Cancelled 10/13/22 03:59 Nucleated RBC % (auto) 0 % 10/13/22 06:28 Nucleated RBCs # 0.0 /100WBC 10/13/22 06:28 Specimen Type Arterial 10/11/22 21:35 Sample Site Radial, left 10/11/22 21:35 ABG pH 6.86 (7.35-7.45) L* 10/11/22 21:35 ABG pCO2 7.8 mmHg (35-45) L* 10/11/22 21:35 ABG pO2 135.0 mmHg (80.0-100.0) H 10/11/22 21:35 ABG HCO3 1.4 mmol/L (22-26) L 10/11/22 21:35 ABG O2 Saturation 98.8 10/11/22 21:35 ABG Base Excess -31.1 mmol/L (-2.0-2.0) L 10/11/22 21:35 Rob Test Pos 10/11/22 21:35 A-a O2 Gradient 0.1 mmHg (5-10) L 10/11/22 21:35 Hematocrit 50.9 % (42-52) 10/11/22 21:35 Hgb O2 Saturation 97.0 % (95-100) 10/11/22 21:35 Carboxyhemoglobin 1.3 %THgb (0.4-20.1) 10/11/22 21:35 Methemoglobin 0.5 % (0.4-1.5) 10/11/22 21:35 Total Hemoglobin 16.6 g/dL (14-18) 10/11/22 21:35 Sodium 140.0 mmol/L (131-143) 10/11/22 21:35 Potassium 4.5 mmol/L (3.5-5.0) 10/11/22 21:35 Glucose 245.0 mg/dL (70-115) H 10/11/22 21:35 Ionized Calcium 1.3 mmol/L (1.1-1.4) 10/11/22 21:35 O2 Delivery Device None 10/11/22 21:35 FiO2 21.0 % 10/11/22 21:35 Mandolin Repair Person ID Roly 10/11/22 21:35 Sodium 140 mmol/L (136-145) 10/13/22 11:59 Potassium 3.6 mmol/L (3.5-5.1) 10/13/22 11:59 Chloride 109 mmol/L (98-107) H 10/13/22 11:59 Carbon Dioxide 21 mmol/L (22-29) L 10/13/22 11:59 Anion Gap 13.6 (5-19) 10/13/22 11:59 BUN 7 mg/dL (6-20) 10/13/22 11:59 Creatinine 0.7 mg/dL (0.7-1.2) 10/13/22 11:59 GFR Calculation 143.8 mL/min (90-130) H 10/13/22 11:59 Glucose 199 mg/dL (65-115) H 10/13/22 11:59 POC Glucose 175 mg/dL (70-110) H 10/13/22 12:01 Calculated Osmolality 294 mOsm/kg (285-295) 10/13/22 11:59 Lactic Acid 2.0 mmol/L (0.5-2.2) 10/11/22 16:04 Calcium 9.2 mg/dL (8.5-10.5) 10/13/22 11:59 Phosphorus 2.2 mg/dL (2.5-4.5) L D 10/13/22 03:59 Phosphorus Cancelled 10/13/22 03:59 Magnesium 1.8 mg/dL (1.7-2.3) 10/13/22 11:59 Total Bilirubin 0.7 mg/dL (0.15-1.2) 10/13/22 03:59 Total Bilirubin Cancelled 10/13/22 03:59 AST 11 U/L (0-40) 10/13/22 03:59 AST Cancelled 10/13/22 03:59 ALT 9 U/L (0-41) 10/13/22 03:59 ALT Cancelled 10/13/22 03:59 Alkaline Phosphatase 112 U/L (40-130) 10/13/22 03:59 Alkaline Phosphatase Cancelled 10/13/22 03:59 C-Reactive Protein 16.1 mg/L (0.0-4.9) H 10/13/22 03:59 C-Reactive Protein Cancelled 10/13/22 03:59 Total Protein 6.1 g/dL (6.6-8.7) L 10/13/22 03:59 Total Protein Cancelled 10/13/22 03:59 Albumin 3.8 g/dL (3.5-5.2) 10/13/22 03:59 Albumin Cancelled 10/13/22 03:59 Globulin 2.3 g/dL (1.3-4.6) 10/13/22 03:59 Globulin Cancelled 10/13/22 03:59 Lipase 15 U/L (13-60) 10/11/22 20:18 TSH 0.35 uIU/mL (0.27-4.20) 10/11/22 20:18 Urine Color Yellow (Yellow) 10/11/22 17:49 Urine Appearance Clear (CLEAR) 10/11/22 17:49 Urine pH 5 (5-7) 10/11/22 17:49 Ur Specific [place] 1.020 (1.005-1.030) 10/11/22 17:49 Urine Protein Trace (Negative) 10/11/22 17:49 Urine Glucose (UA) 4+ (Normal) H 10/11/22 17:49 Urine Ketones 3+ (Negative) H 10/11/22 17:49 Urine Blood Trace (Negative) H 10/11/22 17:49 Urine Nitrate Negative (Negative) 10/11/22 17:49 Urine Bilirubin Neg (Negative) 10/11/22 17:49 Urine Urobilinogen Norm mg/dL (Negative) 10/11/22 17:49 Ur Leukocyte Esterase Negative (Negative) 10/11/22 17:49 Urine RBC 0-4 /hpf (0-2) H 10/11/22 17:49 Urine WBC 0-4 /hpf (0-5) H 10/11/22 17:49 Ur Squamous Epith Cells 0-4 /hpf (0-5) H 10/11/22 17:49 Amorphous Sediment Not Reportable 10/11/22 17:49 Urine Bacteria None /hpf (NONE) 10/11/22 17:49 Urine Opiates Screen Negative ng/mL (Negative) 10/11/22 17:49 Ur Barbiturates Screen Negative ng/mL (Negative) 10/11/22 17:49 Ur Phencyclidine Scrn Negative ng/mL (Negative) 10/11/22 17:49 Ur Amphetamines Screen Negative ng/mL (Negative) 10/11/22 17:49 U Benzodiazepines Scrn Negative ng/mL (Negative) 10/11/22 17:49 Urine Cocaine Screen Negative ng/mL (Negative) 10/11/22 17:49 U Marijuana (THC) Screen Negative ng/mL (Negative) 10/11/22 17:49 Serum Ketones Positive (Negative) H 10/11/22 16:04 Vitals Last Vital Signs Temp 98.8 F 10/12/22 19:00 Pulse 125 H 10/13/22 12:30 Resp 19 H 10/13/22 12:30 BP 118/83 10/13/22 12:30 Pulse Ox 98 10/13/22 12:30 O2 Del Method Room Air 10/12/22 19:00 Discharge Plan Discharge Patient Disposition: Home Condition: Stable Prescriptions: Continued (DME) Dexcom G6 Sensor Device See Rx Instructions .ROUTE .COMPLEX Qty: 9 0RF Dose Instruction: CHANGE SENSOR EVERY 10 DAYS. Rx Instructions: CHANGE SENSOR EVERY 10 DAYS. (DME) pen needle, diabetic [Comfort EZ Pen [place]] 32 gauge x 5/32 needle See Rx Instructions .Route Qty: 450 3RF Rx Instructions: Use with insulin shots 5 times a day. (DME) Dexcom G6 Transmitter Device See Rx Instructions .ROUTE .MEDSUPPLY Qty: 6 3RF Rx Instructions: change every 3 months multivitamin Tablet 1 tab PO QAM Humalog U-100 Insulin 100 unit/mL cartridge See Rx Instructions .ROUTE .COMPLEX Rx Instructions: USE PER SLIDING SCALE DEPENDING ON CARB COUNT AND BLOOD SUGAR THREE TIMES DAILY. MAX DAILY DOSE OF 45 UNITS. Vitamin D3 125 mcg (5,000 unit) Tablet 10,000 unit PO Q7D Rx Instructions: on sat Glucagon (HCl) Emergency Kit 1 mg Recon Soln 1 mg SUBCUT Q20M PRN (Reason: blood sugar) Rx Instructions: until target blood sugar attained Discharge Orders: Discharge Order (Routine); Ordered 10/13/22 Ordered By: Juve Kimball Referrals: Ryanne Kimball MD [Primary Care Provider] - 4-7 days Kandice Potts MD [Physician] - 7-10 days (Follow up DKA) Discharge Diet: Diabetic Discharge Activity: Increase activity as tolerated Patient Instructions: Opioid Safety Activity Restrictions/Additional Instructions: Encourage fluids Initiate your insulin pump tonight around 5 to 6 PM. Monitor for any hypoglycemia. Follow-up with your primary care provider, and follow-up with your clinical quality assurance associate within 7 to 10 days Return for any concerns Discharge Attestations Time Spent in Discharge Care*: greater than 30 min Quality Metrics Clinical Quality Measures [ No reported AMI, CVA or VTE this stay] Coding Level of Care Code 35659 Total time (in minutes) for Discharge: 42 Diagnoses DKA (diabetic ketoacidosis) E11.10 Time Spent (min) 46
[2022-10-13] MEDS: insulin lispro 100 unit/1 mL 8 UNIT SUBCUT (15:59)
[2022-10-13 18:30] LABS: Glucose Point of Care 234 mg/dL (70-110)
[2022-10-13 18:30] LABS: Glucose Point of Care 360 mg/dL (70-110)
[2022-10-13 20:57] LABS: Glucose Point of Care 383 mg/dL (70-110)
[2022-10-13 20:57] LABS: Glucose Point of Care 176 mg/dL (70-110)
== END 2022-10-13 16:00 | disposition home or self-care (01) | DRG 919 ==
LOC: ER 16:08 → ICU 17:57
PROVIDERS: Internal Medicine; Admitting Provider Family Medicine; Emergency Provider Family Medicine; PCP Family Medicine; Visit Provider Internal Medicine
DX: T85.624A Displacement of insulin pump, initial encounter (principal); E10.10 Type 1 diabetes mellitus with ketoacidosis without coma; Z96.41 Presence of insulin pump (external) (internal); R00.0 Tachycardia, unspecified
CPT/HCPCS: 36415; 36416; 36600; 71045; 80048; 80051; 80053; 80306; 81001; 82009; 82330; 82805; 82962; 83605; 83690; 83735; 84100; 84443; 85025; 86140; 93005; 94664; 96365; 96372; 96375; 96376; 99285; C9113; J1650; J1815; J2405; J3480; J3490; J7030; J7050; J7060; J7799

== ENCOUNTER 2023-12-30 20:07 | Inpatient (IN) | payer OTHER, SELFPAY ==
[2023-12-30] VITALS (7 sets, daily range): BP systolic 123–151; BP diastolic 80–103; PULSE 119–153; RESP 22–37; TEMP 35–37.4; O2SAT 98–100; BMI 32.2
--- NOTE | 2023-12-30 20:36 | XRR_ITS ---
PROCEDURE INFORMATION: Exam: XR Chest Exam date and time: 12/30/2023 8:44 PM Age: 23 years old Clinical indication: Chest pressure; Patient HX: Chest pain; Rapid heart rate TECHNIQUE: Imaging protocol: Radiologic exam of the chest. Views: 1 view. COMPARISON: CR XR chest 1V portable [id number] 10/11/2022 4:00 PM FINDINGS: Lungs: Unremarkable. No consolidation. Pleural spaces: Unremarkable. No pleural effusion. No pneumothorax. Heart/Mediastinum: Unremarkable. No cardiomegaly. Bones/joints: Unremarkable. XR/XR chest 1V portable [id number] IMPRESSION: No acute findings.
[2023-12-30] MEDS: sodium chloride 0.9% 1,000 ML 999 ML IV ×2 (20:40→21:28)
[2023-12-30 20:52] LABS: Basophils % 0.3 %; Eosinophils % 0.2 %; Hematocrit 53.7 % (37-53); Lymphocytes # 2.3 10^3/uL (0.8-4.8); Lymphocytes % 24.4 %; Mean Corpuscular HGB Conc 32.6 g/dL (30-55); Mean Corpuscular Hemoglobin 28.1 pg (27-33); Mean Corpuscular Volume 86.2 fl (82-101); Mean Platelet Volume 10.2 fL (7.4-10.4); Monocytes # 0.5 10^3/uL (0.2-0.9); Monocytes % 5.5 %; Neutrophils # 6.47 10^3/uL (1.8-7.7); Neutrophils % 69.2 %; Nucleated Red Blood Cells % 0 %; Platelet Count 394 10^3/cmm (157-399); Red Blood Count 6.23 10^6/uL (3.85-5.65); Red Cell Distribution Width 11.8 % (12.1-15.1); White Blood Count 9.35 10^3/uL (3.29-11.43)
[2023-12-30 20:54] LABS: Bilirubin Urine Negative (Negative); Blood Urine Negative (Negative); Glucose Urine UA 3+ (Normal); Ketones Urine 4+ (Negative); Leukocyte Esterase Urine Negative (Negative); Nitrate Urine Negative (Negative); Protein Urine 1+ (Negative); Urine Appearance Clear (CLEAR); Urine Color Yellow (Yellow); Urobilinogen Urine 0.2 mg/dL (Negative)
[2023-12-30 20:58] LABS: Bacteria Urine None Seen /hpf; RBC Urine 0-2 /hpf (0-2); Squamous Epithelial Cell Urine 0-5 /hpf (0-5); WBC Urine 0-5 /hpf (0-5)
[2023-12-30 21:01] LABS: Ketone (Acetest) Serum Positive (Negative)
[2023-12-30 21:03] LABS: Alveolar-Arterial Oxygen Gradi 1.8 mmHg (5-10); Arterial Blood Gas Hematocrit 50.8 % (42-52); Base Excess ABG -20.7 mmol/L (-2.0-2.0); Blood Gas Allen Test Pos; Blood Gas Sample Site Radial, right; Blood Gas Sample Type Arterial; HCO3 ABG 5.9 mmol/L (22-26); HGB O2 Sat 96.3 % (95-100); Ionized Calcium Level - ABG 1.2 mmol/L (1.1-1.4); Oxygen Saturation ABG 98.3; PO2 FiO2 Ratio Arterial Blood 533; Potassium Level - ABG 5.1 mmol/L (3.5-5.0); Total Hemoglobin 16.6 g/dL (14-18)
[2023-12-30 21:04] LABS: ABG PH Result 7.15 (7.35-7.45)
[2023-12-30 21:11] LABS: Alanine Aminotransferase 19 U/L (0-41); Albumin Level 5.1 g/dL (3.5-5.2); Alkaline Phosphatase 186 U/L (40-130); Anion Gap 38.2 (5-19); Aspartate Amino Transferase 14 U/L (0-40); Blood Urea Nitrogen 17 mg/dL (6-20); Calcium 9.9 mg/dL (8.5-10.5); Carbon Dioxide 11 mmol/L (22-29); Chloride 89 mmol/L (98-107); Creatinine Clr Calc Pharmacy 104.6793; Globulin 3.5 g/dL (1.3-4.6); Glomerular Filtration Rate 69.7 mL/min (90-130); Osmolality Calculated 301 mOsm/kg (285-295); Potassium 5.2 mmol/L (3.5-5.1); Sodium 133 mmol/L (136-145); Total Bilirubin 0.6 mg/dL (0.15-1.2); Total Protein 8.6 g/dL (6.6-8.7)
--- NOTE | 2023-12-30 21:14 | P.HP_ITS ---
Providers/Chief Complaint 2 Primary Care Provider: Ryanne Kimball MD Chief Complaint: diabetic n/v bs high CP rapid breathing History of Present Illness Darrel Mcduffie is a 23 year old male insulin-dependent diabetic, uses insulin pump stating that his insulin pump stopped working because he slept on it and dressing came off and then insulin pump could not work when he woke up he noticed his blood sugar was extremely high and and he knew that he was in DKA. In the ER most of the workup is pending but his ABG is consistent with severe acidosis, potassium 5.9, high blood sugar I have put him on DKA protocol request ICU admission. Patient is denying use of marijuana, recreational drugs, no recent fever signs of UTI, patient stating that he is not sexually active, he works at a [employer]. Review of Systems 2 Const: Denies: fever(s) ENMT: Denies: throat pain Card: Denies: chest pain Resp: Denies: dyspnea GI: Denies: abdominal pain : Denies: flank pain Medications/Allergies Home Medications Medication Instructions Recorded Confirmed Last Taken Type pen needle, diabetic 32 gauge x #450 ea 05/10/21 11/27/23 Unknown Rx (Comfort EZ Pen [place]) cholecalciferol (vitamin D3) 125 10,000 unit PO Q7D 10/11/22 11/27/23 Unknown History mcg (5,000 unit) tablet (Vitamin D3) glucagon HCl 1 mg solution for 1 mg SUBCUT Q20M PRN blood sugar 10/11/22 11/27/23 Unknown History injection (Glucagon (HCl) Emergency Kit) multivitamin 1 tab PO QAM 10/11/22 11/27/23 10/11/22 History blood-glucose transmitter (Dexcom #6 ea 10/21/22 11/27/23 Unknown Rx G6 Transmitter device) blood-glucose sensor (Dexcom G6 #9 ea 05/09/23 11/27/23 Unknown Rx Sensor device) insulin lispro 100 unit/mL See Rx Instructions .Route 10/24/23 11/27/23 Unknown Rx subcutaneous pen .COMPLEX #15 mL Allergies Allergy/AdvReac Type Severity Reaction Status Date / Time No Known Allergies Allergy Verified 11/27/23 08:05 PFSH Acute 2 PFSH: Medical History DKA (diabetic ketoacidosis) Uncontrolled type 1 diabetes mellitus Surgical History No significant past surgical history Family History Father No problems noted. Mother No problems noted. Social History Smoking and tobacco/nicotine status: never used tobacco/nicotine Second hand smoke exposure: No Alcohol intake: never Substance/Drug Use: never Adopted: No Lives independently: No Household members: family Housing: House Marital status: Single Highest education level completed: High School Graduate Current occupational status: unemployed Current occupational exposures/hazards: No Vitals/I&O/Wt Last Vital Signs Temp 95 F L 12/30/23 20:12 Pulse 119 H 12/30/23 20:47 Resp 22 H 12/30/23 20:47 BP 151/83 12/30/23 20:47 Pulse Ox 100 12/30/23 20:47 O2 Del Method Room Air 12/30/23 20:47 Weight last 48 hrs Weight 99.79 kg Physical Exam 2 Narrative: Patient is awake and alert Tachycardic Clinical looks dehydrated Endorsing nausea Nonfocal neuroexam Pleasant cooperative No active chest pain or shortness of breath Hemodynamically stable Doing well on room air Data 12/30/23 20:39 12/30/23 20:39 A&P Assessment and plan (1) Poorly controlled type 1 diabetes mellitus: (2) Diabetic ketoacidosis: (3) Dehydration: (4) Acidosis due to type 1 diabetes mellitus: Plan DKA Insulin-dependent diabetic Start DKA protocol in ICU I will give him a normal saline with potassium supplementation Check BMP every 4 hours Add bicarb drip with D5 at 100 mL/h N.p.o. Full code DVT prophylaxis added Attestations 2 Medical Necessity Statement*: Needing ICU admission for severe acidosis and type I diabetic in DKA May need more than 48 hours Diagnoses Poorly controlled type 1 diabetes mellitus E10.65 Diabetic ketoacidosis E11.10 Dehydration E86.0 Acidosis due to type 1 diabetes mellitus E10.10
[2023-12-30 21:23] LABS: Glucose Point of Care 488 mg/dL (70-110)
[2023-12-30 21:25] LABS: Glucose 521 mg/dL (65-115)
--- NOTE | 2023-12-30 21:26 | ED_ITS ---
HPI - Recheck/Abnormal Lab/Rx 2 General: Chief Complaint: Recheck/Abnormal Lab/Rx Stated Complaint: diabetic n/v bs high CP rapid breathing Time Seen by Provider: 12/30/23 20:35 History of Present Illness: 23-year-old man with history of type 1 d iaеленаtes who presents emergency room with hyperglycemia and he believes he may be in DKA. He says last night his pump came off while he was sleeping he woke up with very high sugar. He has been trying to fight it all day and has not been able get it down and has been feeling worse. He has been feeling tachypneic like he is having [place] breathing. No altered mental status. No focal motor deficits. Related Data Home Medications Medication Instructions Recorded Confirmed cholecalciferol (vitamin D3) 125 10,000 unit PO Q7D 10/11/22 11/27/23 mcg (5,000 unit) tablet (Vitamin D3) glucagon HCl 1 mg solution for 1 mg SUBCUT Q20M PRN blood sugar 10/11/22 11/27/23 injection (Glucagon (HCl) Emergency Kit) multivitamin 1 tab PO QAM 10/11/22 11/27/23 Previous Rx's Medication Instructions Recorded pen needle, diabetic 32 gauge x #450 ea 05/10/21 (Comfort EZ Pen [place]) blood-glucose transmitter (Dexcom #6 ea 10/21/22 G6 Transmitter device) blood-glucose sensor (Dexcom G6 #9 ea 05/09/23 Sensor device) insulin lispro 100 unit/mL See Rx Instructions .Route 10/24/23 subcutaneous pen .COMPLEX #15 mL Allergies Allergy/AdvReac Type Severity Reaction Status Date / Time No Known Allergies Allergy Verified 11/27/23 08:05 Review of Systems 2 Narrative: Constitutional symptoms: Negative except as documented in HPI. Skin symptoms: Negative except as documented in HPI. Eye symptoms: Negative except as documented in HPI. ENMT symptoms: Negative except as documented in HPI. Respiratory symptoms: Negative except as documented in HPI. Cardiovascular symptoms: Negative except as documented in HPI. Gastrointestinal symptoms: Negative except as documented in HPI. Genitourinary symptoms: Negative except as documented in HPI. Musculoskeletal symptoms: Negative except as documented in HPI. Neurologic symptoms: Negative except as documented in HPI. Psychiatric symptoms: Negative except as documented in HPI. Endocrine symptoms: Negative except as documented in HPI. [facility] 2 PFSH: Medical History DKA (diabetic ketoacidosis) Uncontrolled type 1 diabetes mellitus Surgical History No significant past surgical history Family History Father No problems noted. Mother No problems noted. Social History Smoking and tobacco/nicotine status: never used tobacco/nicotine Second hand smoke exposure: No Alcohol intake: never Substance/Drug Use: never Adopted: No Lives independently: No Household members: family Housing: House Marital status: Single Highest education level completed: High School Graduate Current occupational status: unemployed Current occupational exposures/hazards: No Physical Exam 2 Narrative: EXAM NARRATIVE: General: Alert, no acute distress. Skin: Warm, dry. Head: Normocephalic, atraumatic. Neck: Supple, trachea midline. Eye: Extraocular movements are intact. Ears, nose, mouth and throat: Tacky oral mucosa Cardiovascular: Regular, tachycardic, normal peripheral perfusion. Respiratory: Lungs are clear to auscultation, respirations are non-labored, breath sounds are equal, Symmetrical chest wall expansion. Gastrointestinal: Soft, Nontender, Non distended Musculoskeletal: Normal ROM, no deformity. Neurological: Alert and oriented, No focal neurological deficit observed. Psychiatric: Cooperative, appropriate mood & affect. Course 2 Vital Signs: Vital signs: Vital Signs Temperature 95 F L 12/30/23 20:12 Pulse Rate 119 H 12/30/23 20:47 Respiratory Rate 22 H 12/30/23 20:47 Blood Pressure 151/83 12/30/23 20:47 Pulse Oximetry 100 12/30/23 20:47 Oxygen Delivery Me thod Room Air 12/30/23 20:47 MDM - Recheck/Abnormal Lab/Rx Medical Decision Making Medical decision making: Differential diagnosis for the patient with hyperglycemia would include but not be limited to and would be based on the above HPI review of systems and physical exam: DKA. Dehydration. Renal failure. Concern for electrolyte abnormalities. Concern for underlying infection that might result in hyperglycemia. Medical non-compliance Orders placed to evaluate differential diagnosis of the patient with hyperglycemia are based on the above differential, HPI and physical exam. Lab Review: Laboratory results were reviewed and interpreted by myself the emergency room physician. No leukocytosis. Hemoglobin is bit elevated at 17.5 which might indicate some dehydration as well as a BUN and creatinine of 17 and 1.3. Bicarb is 11 which indicates acidosis and his glucose is elevated at 521. Patient is ketone positive. AB.1 . Patient is in DKA. Chest x-ray: No acute process. No infiltrate. No pneumothorax. This was reviewed and interpreted by myself the emergency room physician. I also reviewed the radiology report. I reviewed the patient's medical record. Reexamination: Patient is not altered at all. His tachypnea and heart rate have improved some with the first bag of fluids. Consultation: I spoke with Dr. Sy who is on-call for the hospitalist service who agrees to admission to the ICU. Assessment and plan: DKA Dehydration Hyperglycemia ?2 L normal saline bolus and an insulin drip have been initiated. -I discussed the patient with the hospitalist on-call who is admitting the patient. - Discussed findings and plan with patient. Answered any questions. - All laboratory values were reviewed and interpreted personally by myself, the ER physician - All imaging was reviewed and interpreted personally by myself, the ER physician. - Evaluation and treatment of this problem were appropriate in the emergency setting Critical care -I spent a total of >35 minutes of critical care time managing the patient, independent of any other practitioner. -The time involved in the performance of separately reportable procedures was not counted towards critical care time. Lab Data 12/30/23 20:39 12/30/23 20:39 Laboratory Results WBC 9.35 10^3/uL (3.29-11.43) 12/30/23 20:39 RBC 6.23 10^6/uL (3.85-5.65) H 12/30/23 20:39 Hgb 17.50 g/dL (11.27-16.99) H 12/30/23 20:39 Hct 53.7 % (37-53) H 12/30/23 20:39 MCV 86.2 fl (82-101) 12/30/23 20:39 MCH 28.1 pg (27-33) 12/30/23 20:39 MCHC 32.6 g/dL (30-55) 12/30/23 20:39 RDW 11.8 % (12.1-15.1) L 12/30/23 20:39 Plt Count 394 10^3/cmm (157-399) 12/30/23 20:39 MPV 10.2 fL (7.4-10.4) 12/30/23 20:39 Neut % (Auto) 69.2 % 12/30/23 20:39 Lymph % (Auto) 24.4 % 12/30/23 20:39 Saline % (Auto) 5.5 % 12/30/23 20:39 Eos % (Auto) 0.2 % 12/30/23 20:39 Baso % (Auto) 0.3 % 12/30/23 20:39 Neut # (Auto) 6.47 10^3/uL (1.8-7.7) 12/30/23 20:39 Lymph # (Auto) 2.3 10^3/uL (0.8-4.8) 12/30/23 20:39 Saline # (Auto) 0.5 10^3/uL (0.2-0.9) 12/30/23 20:39 Eos # (Auto) 0.0 10^3/uL (0.0-0.8) 12/30/23 20:39 Baso # (Auto) 0.0 10^3/uL (0.0-0.1) 12/30/23 20:39 Nucleated RBC % (auto) 0 % 12/30/23 20:39 Nucleated RBCs # 0.0 /100WBC 12/30/23 20:39 Specimen Type Arterial 12/30/23 20:58 Sample Site Radial, right 12/30/23 20:58 ABG pH 7.15 (7.35-7.45) L* 12/30/23 20:58 ABG pCO2 17.0 mmHg (35-45) L* 12/30/23 20:58 ABG pO2 112.0 mmHg (80.0-100.0) H 12/30/23 20:58 ABG PO2/FiO2 Ratio 533 12/30/23 20:58 ABG HCO3 5.9 mmol/L (22-26) L 12/30/23 20:58 ABG O2 Saturation 98.3 12/30/23 20:58 ABG Base Excess -20.7 mmol/L (-2.0-2.0) L 12/30/23 20:58 Rob Test Pos 12/30/23 20:58 A-a O2 Gradient 1.8 mmHg (5-10) L 12/30/23 20:58 Hematocrit 50.8 % (42-52) 12/30/23 20:58 Hgb O2 Saturation 96.3 % (95-100) 12/30/23 20:58 Carboxyhemoglobin 1.0 %THgb (0.4-20.1) 12/30/23 20:58 Methemoglobin 1.0 % (0.4-1.5) 12/30/23 20:58 Total Hemoglobin 16.6 g/dL (14-18) 12/30/23 20:58 Sodium 134.0 mmol/L (131-143) 12/30/23 20:58 Potassium 5.1 mmol/L (3.5-5.0) H 12/30/23 20:58 Glucose 492.0 mg/dL (70-115) H 12/30/23 20:58 Ionized Calcium 1.2 mmol/L (1.1-1.4) 12/30/23 20:58 O2 Delivery Device None 12/30/23 20:58 FiO2 21.0 % 12/30/23 20:58 Director Of Financial Planning ID [email or web address] 12/30/23 20:58 Sodium 133 mmol/L (136-145) L 12/30/23 20:39 Potassium 5.2 mmol/L (3.5-5.1) H 12/30/23 20:39 Chloride 89 mmol/L (98-107) L 12/30/23 20:39 Carbon Dioxide 11 mmol/L (22-29) L 12/30/23 20:39 Anion Gap 38.2 (5-19) H 12/30/23 20:39 BUN 17 mg/dL (6-20) 12/30/23 20:39 Creatinine 1.3 mg/dL (0.7-1.2) H 12/30/23 20:39 GFR Calculation 69.7 mL/min (90-130) L 12/30/23 20:39 Glucose 521 mg/dL (65-115) H* 12/30/23 20:39 POC Glucose 488 mg/dL (70-110) H 12/30/23 21:20 Calculated Osmolality 301 mOsm/kg (285-295) H 12/30/23 20:39 Calcium 9.9 mg/dL (8.5-10.5) 12/30/23 20:39 Total Bilirubin 0.6 mg/dL (0.15-1.2) 12/30/23 20:39 AST 14 U/L (0-40) 12/30/23 20:39 ALT 19 U/L (0-41) 12/30/23 20:39 Alkaline Phosphatase 186 U/L (40-130) H 12/30/23 20:39 Total Protein 8.6 g/dL (6.6-8.7) 12/30/23 20:39 Albumin 5.1 g/dL (3.5-5.2) 12/30/23 20:39 Globulin 3.5 g/dL (1.3-4.6) 12/30/23 20:39 Urine Color Yellow (Yellow) 12/30/23 20:46 Urine Appearance Clear (CLEAR) 12/30/23 20:46 Urine pH 5.0 (5-7) 12/30/23 20:46 Ur Specific [place] 1.030 (1.005-1.030) 12/30/23 20:46 Urine Protein 1+ (Negative) A 12/30/23 20:46 Urine Glucose (UA) 3+ (Normal) H 12/30/23 20:46 Urine Ketones 4+ (Negative) 12/30/23 20:46 Urine Blood Negative (Negative) 12/30/23 20:46 Urine Nitrate Negative (Negative) 12/30/23 20:46 Urine Bilirubin Negative (Negative) 12/30/23 20:46 Urine Urobilinogen 0.2 mg/dL (Negative) 12/30/23 20:46 Ur Leukocyte Esterase Negative (Negative) 12/30/23 20:46 Urine RBC 0-2 /hpf (0-2) 12/30/23 20:46 Urine WBC 0-5 /hpf (0-5) 12/30/23 20:46 Ur Squamous Epith Cells 0-5 /hpf (0-5) 12/30/23 20:46 Amorphous Sediment Not Reportable 12/30/23 20:46 Urine Bacteria None seen /hpf (NONE) 12/30/23 20:46 Hyaline Casts 0.40 /lpf 12/30/23 20:46 Serum Ketones Positive (Negative) H 12/30/23 20:39 XR interpretation done by ED provider, pending radiology final review Discharge Plan Discharge Patient Disposition: Admitted As Inpatient Clinical Impression: Diabetic ketoacidosis, Hyperglycemia, Dehydration Condition: Stable Coding Level of Care Code 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
--- NOTE | 2023-12-30 21:29 | ECG_ITS ---
[facility]: 2023[facility]12[facility]30 Pat Name: Darrel Mcduffie Department: Room: Gender: Male Care Coordination Manager: : 2000 Requested By: Dominga Mayfield Order Number: [id number] Landeros MD: Dl Reina M.D. Measurements Intervals [place] Rate: 119 P: 66 DC: 156 QRS: 26 QRSD: 94 T: 50 QT: 302 QTc: 426 Interpretive Statements SINUS TACHYCARDIA INDETERMINATE AXIS ABNORMAL RHYTHM ECG Compared to ECG 10/11/2022 16:31:22 Indeterminate axis now present Electronically Signed On 12-31-2023 14:03:06 [employer] by Dl Reina M.D. [email or web address]
[2023-12-30] MEDS: INSULIN REGULAR IN 0.9 % NACL 100 UNIT/100 ML BAG 10 UNIT IV (22:52)
[2023-12-30 23:15] LABS: Glucose Point of Care 452 mg/dL (70-110)
[2023-12-30] MEDS: ondansetron 2 mg/ML SDV 2 mL 4 MG IVP (23:51)
[2023-12-30] MEDS: enoxaparin 40 mg/0.4 mL Syringe SUBCUT (23:52)
[2023-12-30 23:53] LABS: Blood Urea Nitrogen 17 mg/dL (6-20); Calcium 9.1 mg/dL (8.5-10.5); Chloride 95 mmol/L (98-107); Creatinine Clr Calc Pharmacy 135.5608; Glomerular Filtration Rate 94.3 mL/min (90-130); Glucose 478 mg/dL (65-115); Magnesium 2.1 mg/dL (1.7-2.3); Osmolality Calculated 305 mOsm/kg (285-295); Phosphorus 4.5 mg/dL (2.5-4.5); Sodium 136 mmol/L (136-145)
[2023-12-30 23:58] LABS: Anion Gap 40.1 (5-19); Potassium 6.1 mmol/L (3.5-5.1)
[2023-12-30 23:59] LABS: Carbon Dioxide 7 mmol/L (22-29)
[2023-12-31] VITALS (34 sets, daily range): BP systolic 115–151; BP diastolic 63–103; PULSE 13–162; RESP 17–39; TEMP 36.8; O2SAT 94–100
[2023-12-31] MEDS: sodium bicarbonate 150 MEQ in dextrose 5% 1,000 ML 100 MEQ IV (00:11)
[2023-12-31] MEDS: sodium chloride 0.9% 1,000 ML 100 ML IV (00:41)
[2023-12-31 01:12] LABS: Glucose Point of Care 400 mg/dL (70-110)
[2023-12-31] MEDS: acetaminophen 500 mg Tablet PO (01:24)
[2023-12-31] MEDS: calcium gluconate 0.1 gm/mL 10% SDV 10mL 1 GM IVP (01:24)
[2023-12-31 01:35] LABS: Blood Urea Nitrogen 17 mg/dL (6-20); Calcium 8.8 mg/dL (8.5-10.5); Chloride 97 mmol/L (98-107); Creatinine Clr Calc Pharmacy 112.9674; Glomerular Filtration Rate 76.4 mL/min (90-130); Glucose 389 mg/dL (65-115); Osmolality Calculated 298 mOsm/kg (285-295); Sodium 135 mmol/L (136-145)
[2023-12-31 01:42] LABS: Anion Gap 39.5 (5-19); Carbon Dioxide 4 mmol/L (22-29); Potassium 5.5 mmol/L (3.5-5.1)
[2023-12-31 02:04] LABS: Glucose Point of Care 307 mg/dL (70-110)
[2023-12-31 02:09] LABS: Glucose Point of Care 417 mg/dL (70-110)
[2023-12-31 02:56] LABS: Glucose Point of Care 292 mg/dL (70-110)
[2023-12-31 04:04] LABS: Basophils % 0.2 %; Hematocrit 49.4 % (37-53); Lymphocytes # 1.4 10^3/uL (0.8-4.8); Lymphocytes % 8.3 %; Mean Corpuscular HGB Conc 32.6 g/dL (30-55); Mean Corpuscular Hemoglobin 28.3 pg (27-33); Mean Corpuscular Volume 86.8 fl (82-101); Mean Platelet Volume 9.8 fL (7.4-10.4); Monocytes % 6.1 %; Neutrophils # 13.97 10^3/uL (1.8-7.7); Neutrophils % 84.6 %; Nucleated Red Blood Cells % 0 %; Platelet Count 348 10^3/cmm (157-399); Red Blood Count 5.69 10^6/uL (3.85-5.65)
[2023-12-31 04:21] LABS: Anion Gap 32.1 (5-19); Blood Urea Nitrogen 14 mg/dL (6-20); Calcium 8.8 mg/dL (8.5-10.5); Chloride 101 mmol/L (98-107); Creatinine Clr Calc Pharmacy 123.2371; Glomerular Filtration Rate 84.5 mL/min (90-130); Glucose 241 mg/dL (65-115); Magnesium 2.1 mg/dL (1.7-2.3); Osmolality Calculated 290 mOsm/kg (285-295); Potassium 5.1 mmol/L (3.5-5.1); Sodium 136 mmol/L (136-145)
[2023-12-31 04:22] LABS: Glucose Point of Care 244 mg/dL (70-110)
[2023-12-31 04:25] LABS: Carbon Dioxide 8 mmol/L (22-29)
[2023-12-31 05:26] LABS: Glucose Point of Care 217 mg/dL (70-110)
[2023-12-31 06:03] LABS: Glucose Point of Care 180 mg/dL (70-110)
[2023-12-31 07:41] LABS: Glucose Point of Care 171 mg/dL (70-110)
[2023-12-31 07:55] LABS: Anion Gap 25.7 (5-19); Blood Urea Nitrogen 11 mg/dL (6-20); Calcium 8.5 mg/dL (8.5-10.5); Carbon Dioxide 11 mmol/L (22-29); Chloride 101 mmol/L (98-107); Creatinine Clr Calc Pharmacy 150.6231; Glomerular Filtration Rate 106.5 mL/min (90-130); Glucose 197 mg/dL (65-115); Osmolality Calculated 281 mOsm/kg (285-295); Potassium 4.7 mmol/L (3.5-5.1); Sodium 133 mmol/L (136-145)
[2023-12-31 08:05] LABS: Glucose Point of Care 195 mg/dL (70-110)
[2023-12-31 09:01] LABS: Glucose Point of Care 212 mg/dL (70-110)
[2023-12-31] MEDS: D5-NS 0.45% + KCL 20 mEq 20 MEQ/1,000 ML BAG 125 MEQ IV ×2 (10:06→20:01)
[2023-12-31 10:14] LABS: Glucose Point of Care 241 mg/dL (70-110)
[2023-12-31 11:09] LABS: Glucose Point of Care 263 mg/dL (70-110)
[2023-12-31 11:30] LABS: Anion Gap 24.3 (5-19); Blood Urea Nitrogen 10 mg/dL (6-20); Calcium 8.2 mg/dL (8.5-10.5); Carbon Dioxide 12 mmol/L (22-29); Chloride 102 mmol/L (98-107); Creatinine Clr Calc Pharmacy 150.6231; Glomerular Filtration Rate 106.5 mL/min (90-130); Glucose 249 mg/dL (65-115); Osmolality Calculated 285 mOsm/kg (285-295); Potassium 4.3 mmol/L (3.5-5.1); Sodium 134 mmol/L (136-145)
[2023-12-31 12:04] LABS: Glucose Point of Care 255 mg/dL (70-110)
[2023-12-31 13:15] LABS: Glucose Point of Care 241 mg/dL (70-110)
[2023-12-31 14:10] LABS: Glucose Point of Care 210 mg/dL (70-110)
--- NOTE | 2023-12-31 14:33 | P.PN_ITS ---
Subjective 2 Subjective: Patient was seen this morning, he is alert oriented x 3, following all commands, denies any nausea, no vomiting, no fevers, no chills, no lightheadedness, dizziness Vitals/I&O/Wt Last Vital Signs Temp 98.3 F 12/31/23 04:00 Pulse 94 12/31/23 08:53 Resp 20 H 12/31/23 08:53 BP 127/85 12/31/23 06:00 Pulse Ox 99 12/31/23 08:53 O2 Del Method Room Air 12/31/23 08:53 12/30/23 12/31/23 12/31/23 22:59 06:59 14:59 Intake Total 172.209 / 254.337 7830.433 / 4161.433 Output Total 450 / 450 1000 / 1000 Balance -277.791 / -539.451 9380.433 / 3161.433 Weight last 48 hrs Weight 99 kg Weight 99 kg Weight 99.79 kg Physical Exam 2 Const: COMMON NORMALS: no acute distress and patient oriented x3 Resp: COMMON NORMALS: normal respiratory effort, No retractions, No use of accessory muscles and clear to auscultation bilaterally AUSCULTATION: clear to auscultation bilaterally Cardio: COMMON NORMALS: regular rate, regular rhythm, S1 normal heart sound present and S2 normal heart sound present RATE: regular rate RHYTHM: r egular rhythm HEART SOUNDS: S1 normal heart sound present and S2 normal heart sound present GI: COMMON NORMALS: Normal to inspection, nondistended, normoactive bowel sounds present and non-tender Extremity: COMMON NORMALS: no pedal edema Neuro: COMMON NORMALS: patient oriented x3 Psych: COMMON NORMALS: mental status grossly normal Data 12/31/23 03:57 12/31/23 11:09 A&P Assessment and plan (1) Poorly controlled type 1 diabetes mellitus: (2) Diabetic ketoacidosis: (3) Dehydration: (4) Acidosis due to type 1 diabetes mellitus: Plan DKA Anion gap remains prolonged at 24.3, bicarb 12, blood sugars low 100s Insulin-dependent diabetic Continue DKA protocol Continue D5 half-normal saline with 20 KCl at 125 cc an hour Continue insulin drip Continue 1 hour blood sugars Maintain potassium greater than 4.5 Once anion gap drops below 14, will overlap with subcu insulin and Lantus Potentially thereafter will resume patient's on insulin pump Check BMP every 4 hours N.p.o. Full code DVT prophylaxis added Attestations 2 Medical Necessity Statement*: Patient requires hospitalization, inpatient, greater than 2 midnights, for diabetic ketoacidosis on insulin drip Coding Level of Care Code Critical Care >/= 30 minutes Critical care time (in minutes): 40 The high probability of a clinically significant, sudden or life threatening deterioration, as referenced in this documentation, required my full and direct attention, intervention and personal management. The critical care time shown is in addition to time spent performing any reported separately billable procedures and includes the following: [x] Data and vital sign review and interpretation [x ] Patient assessment, examination and intervention [x] Medication orders and management [x] Patient/Family updates as able [x] Care Coordination and Documentation. Diagnoses Poorly controlled type 1 diabetes mellitus E10.65 Diabetic ketoacidosis E11.10 Dehydration E86.0 Acidosis due to type 1 diabetes mellitus E10.10
[2023-12-31] MEDS: potassium chloride ER 20 mEq Tablet PO (14:38)
[2023-12-31 15:06] LABS: Glucose Point of Care 221 mg/dL (70-110)
[2023-12-31 15:21] LABS: Anion Gap 22.3 (5-19); Blood Urea Nitrogen 8 mg/dL (6-20); Calcium 8.3 mg/dL (8.5-10.5); Carbon Dioxide 14 mmol/L (22-29); Chloride 102 mmol/L (98-107); Glucose 238 mg/dL (65-115); Osmolality Calculated 284 mOsm/kg (285-295); Potassium 4.3 mmol/L (3.5-5.1); Sodium 134 mmol/L (136-145)
[2023-12-31 16:06] LABS: Glucose Point of Care 209 mg/dL (70-110)
[2023-12-31 17:02] LABS: Glucose Point of Care 216 mg/dL (70-110)
[2023-12-31 17:55] LABS: Glucose Point of Care 213 mg/dL (70-110)
[2023-12-31 19:12] LABS: Glucose Point of Care 198 mg/dL (70-110)
[2023-12-31] MEDS: INSULIN REGULAR IN 0.9 % NACL 100 UNIT/100 ML BAG IV (19:14)
[2023-12-31 19:28] LABS: Blood Urea Nitrogen 8 mg/dL (6-20); Calcium 8.4 mg/dL (8.5-10.5); Carbon Dioxide 18 mmol/L (22-29); Chloride 102 mmol/L (98-107); Glucose 199 mg/dL (65-115); Osmolality Calculated 280 mOsm/kg (285-295); Sodium 133 mmol/L (136-145)
[2023-12-31 19:37] LABS: Anion Gap 17.1 (5-19); Potassium 4.1 mmol/L (3.5-5.1)
[2023-12-31 20:03] LABS: Glucose Point of Care 194 mg/dL (70-110)
[2023-12-31 21:17] LABS: Glucose Point of Care 208 mg/dL (70-110)
[2023-12-31 22:19] LABS: Glucose Point of Care 246 mg/dL (70-110)
[2023-12-31 23:05] LABS: Glucose Point of Care 231 mg/dL (70-110)
[2023-12-31 23:27] LABS: Anion Gap 20.2 (5-19); Blood Urea Nitrogen 6 mg/dL (6-20); Calcium 8.3 mg/dL (8.5-10.5); Carbon Dioxide 16 mmol/L (22-29); Chloride 102 mmol/L (98-107); Glucose 264 mg/dL (65-115); Osmolality Calculated 285 mOsm/kg (285-295); Potassium 4.2 mmol/L (3.5-5.1); Sodium 134 mmol/L (136-145)
[2024-01-01] VITALS (29 sets, daily range): BP systolic 107–133; BP diastolic 59–84; PULSE 72–117; RESP 13–21; TEMP 36.7; O2SAT 95–100
[2024-01-01] MEDS: enoxaparin 40 mg/0.4 mL Syringe SUBCUT ×2 (00:35→22:54)
[2024-01-01 00:40] LABS: Glucose Point of Care 258 mg/dL (70-110)
[2024-01-01 01:27] LABS: Glucose Point of Care 272 mg/dL (70-110)
[2024-01-01 02:26] LABS: Glucose Point of Care 301 mg/dL (70-110)
[2024-01-01 03:18] LABS: Glucose Point of Care 240 mg/dL (70-110)
[2024-01-01 04:18] LABS: Glucose Point of Care 231 mg/dL (70-110)
[2024-01-01 04:46] LABS: Basophils % 0.2 %; Eosinophils # 0.1 10^3/uL (0.0-0.8); Eosinophils % 1.2 %; Hematocrit 43.7 % (37-53); Lymphocytes # 3.6 10^3/uL (0.8-4.8); Lymphocytes % 45.1 %; Mean Corpuscular HGB Conc 33.6 g/dL (30-55); Mean Corpuscular Hemoglobin 28.2 pg (27-33); Mean Corpuscular Volume 83.9 fl (82-101); Mean Platelet Volume 9.3 fL (7.4-10.4); Monocytes # 0.5 10^3/uL (0.2-0.9); Monocytes % 6.1 %; Neutrophils # 3.78 10^3/uL (1.8-7.7); Neutrophils % 47.2 %; Nucleated Red Blood Cells % 0 %; Platelet Count 270 10^3/cmm (157-399); Red Blood Count 5.21 10^6/uL (3.85-5.65); Red Cell Distribution Width 12.2 % (12.1-15.1); White Blood Count 8.04 10^3/uL (3.29-11.43)
[2024-01-01] MEDS: D5-NS 0.45% + KCL 20 mEq 20 MEQ/1,000 ML BAG 125 MEQ IV ×3 (05:02→20:38)
[2024-01-01 05:12] LABS: Alanine Aminotransferase 13 U/L (0-41); Albumin Level 3.9 g/dL (3.5-5.2); Alkaline Phosphatase 116 U/L (40-130); Anion Gap 14.5 (5-19); Aspartate Amino Transferase 12 U/L (0-40); Blood Urea Nitrogen 6 mg/dL (6-20); Calcium 8.6 mg/dL (8.5-10.5); Carbon Dioxide 20 mmol/L (22-29); Chloride 105 mmol/L (98-107); Globulin 1.8 g/dL (1.3-4.6); Glucose 245 mg/dL (65-115); Osmolality Calculated 288 mOsm/kg (285-295); Potassium 3.5 mmol/L (3.5-5.1); Sodium 136 mmol/L (136-145); Total Bilirubin 0.4 mg/dL (0.15-1.2); Total Protein 5.7 g/dL (6.6-8.7)
[2024-01-01 05:20] LABS: Glucose Point of Care 210 mg/dL (70-110)
[2024-01-01 06:13] LABS: Glucose Point of Care 194 mg/dL (70-110)
[2024-01-01 07:11] LABS: Glucose Point of Care 205 mg/dL (70-110)
[2024-01-01 07:28] LABS: Anion Gap 16.9 (5-19); Blood Urea Nitrogen 6 mg/dL (6-20); Calcium 8.2 mg/dL (8.5-10.5); Carbon Dioxide 18 mmol/L (22-29); Chloride 105 mmol/L (98-107); Creatinine Clr Calc Pharmacy 195.5472; Glomerular Filtration Rate 142.4 mL/min (90-130); Glucose 235 mg/dL (65-115); Osmolality Calculated 287 mOsm/kg (285-295); Potassium 3.9 mmol/L (3.5-5.1); Sodium 136 mmol/L (136-145)
[2024-01-01 08:16] LABS: Glucose Point of Care 211 mg/dL (70-110)
[2024-01-01] MEDS: potassium chloride ER 20 mEq Tablet 40 MEQ PO (08:50)
[2024-01-01 09:05] LABS: Glucose Point of Care 228 mg/dL (70-110)
[2024-01-01 10:05] LABS: Glucose Point of Care 232 mg/dL (70-110)
[2024-01-01 11:06] LABS: Glucose Point of Care 252 mg/dL (70-110)
[2024-01-01 12:10] LABS: Glucose Point of Care 280 mg/dL (70-110)
[2024-01-01 13:06] LABS: Glucose Point of Care 258 mg/dL (70-110)
[2024-01-01 13:34] LABS: Alanine Aminotransferase 14 U/L (0-41); Albumin Level 3.7 g/dL (3.5-5.2); Alkaline Phosphatase 114 U/L (40-130); Anion Gap 17.7 (5-19); Aspartate Amino Transferase 13 U/L (0-40); Blood Urea Nitrogen 5 mg/dL (6-20); Calcium 8.7 mg/dL (8.5-10.5); Carbon Dioxide 19 mmol/L (22-29); Chloride 103 mmol/L (98-107); Creatinine Clr Calc Pharmacy 171.1038; Glucose 270 mg/dL (65-115); Osmolality Calculated 287 mOsm/kg (285-295); Potassium 4.7 mmol/L (3.5-5.1); Sodium 135 mmol/L (136-145); Total Bilirubin 0.5 mg/dL (0.15-1.2); Total Protein 5.7 g/dL (6.6-8.7)
--- NOTE | 2024-01-01 13:53 | P.PN_ITS ---
Subjective 2 Subjective: Patient was seen this morning, he is alert oriented x 3, following all commands denies any fevers, chills, cough, he is anion gap has prolonged to 16, remains on insulin drip, blood sugars are also increasing Vitals/I&O/Wt Last Vital Signs Temp 98.3 F 12/31/23 04:00 Pulse 78 01/01/24 10:53 Resp 18 01/01/24 10:53 BP 127/85 12/31/23 06:00 Pulse Ox 96 01/01/24 10:53 O2 Del Method Room Air 01/01/24 10:53 12/31/23 01/01/24 01/01/24 22:59 06:59 14:59 Intake Total 1069.375 / 5230.808 1025.733 / 6256.541 1009.750 / 1009.750 Output Total 600 / 1600 200 / 1800 Balance 469.375 / 3630.808 825.733 / 4456.541 1009.750 / 1009.750 Weight last 48 hrs Weight 101 kg Weight 99 kg Weight 99 kg Weight 99.79 kg Physical Exam 2 Const: COMMON NORMALS: no acute distress and patient oriented x3 Resp: COMMON NORMALS: normal respiratory effort, No retractions, No use of accessory muscles and clear to auscultation bilaterally AUSCULTATION: clear to auscultation bilaterally Cardio: COMMON NORMALS: regular rate, regular rhythm, S1 normal heart sound present and S2 normal heart sound present RATE: regular rate RHYTHM: r egular rhythm HEART SOUNDS: S1 normal heart sound present and S2 normal heart sound present GI: COMMON NORMALS: Normal to inspection, nondistended, normoactive bowel sounds present and non-tender Extremity: COMMON NORMALS: no pedal edema Neuro: COMMON NORMALS: patient oriented x3 Psych: COMMON NORMALS: mental status grossly normal Data 01/01/24 04:39 01/01/24 12:54 A&P Assessment and plan (1) Poorly controlled type 1 diabetes mellitus: (2) Diabetic ketoacidosis: (3) Dehydration: (4) Acidosis due to type 1 diabetes mellitus: Plan DKA Anion gap remains prolonged at 17, blood sugars in the 270s Insulin-dependent diabetic Continue DKA protocol Continue D5 half-normal saline with 20 KCl at 125 cc an hour Continue insulin drip Continue 1 hour blood sugars Maintain potassium greater than 4.5 Once anion gap drops below 14, will overlap with subcu insulin and Lantus Potentially thereafter will resume patient's on insulin pump Check BMP every 4 hours N.p.o. Full code DVT prophylaxis added Continue to monitor anion gap, once 14-15, will transition to insulin drip Attestations 2 Medical Necessity Statement*: Patient requires hospitalization for diabetic ketoacidosis Coding Level of Care Code Critical Care >/= 30 minutes Critical care time (in minutes): 45 The high probability of a clinically significant, sudden or life threatening deterioration, as referenced in this documentation, required my full and direct attention, intervention and personal management. The critical care time shown is in addition to time spent performing any reported separately billable procedures and includes the following: [x] Data and vital sign review and interpretation [x ] Patient assessment, examination and intervention [x] Medication orders and management [x] Patient/Family updates as able [x] Care Coordination and Documentation. Diagnoses Poorly controlled type 1 diabetes mellitus E10.65 Diabetic ketoacidosis E11.10 Dehydration E86.0 Acidosis due to type 1 diabetes mellitus E10.10
[2024-01-01 14:05] LABS: Glucose Point of Care 254 mg/dL (70-110)
[2024-01-01 15:04] LABS: Glucose Point of Care 209 mg/dL (70-110)
[2024-01-01 16:06] LABS: Glucose Point of Care 244 mg/dL (70-110)
[2024-01-01 17:03] LABS: Glucose Point of Care 164 mg/dL (70-110)
[2024-01-01 18:07] LABS: Glucose Point of Care 172 mg/dL (70-110)
[2024-01-01 19:08] LABS: Glucose Point of Care 208 mg/dL (70-110)
[2024-01-01 19:58] LABS: Glucose Point of Care 252 mg/dL (70-110)
[2024-01-01 20:03] LABS: Blood Urea Nitrogen 4 mg/dL (6-20); Calcium 8.7 mg/dL (8.5-10.5); Carbon Dioxide 19 mmol/L (22-29); Chloride 103 mmol/L (98-107); Creatinine Clr Calc Pharmacy 228.1384; Glomerular Filtration Rate 170.1 mL/min (90-130); Glucose 226 mg/dL (65-115); Osmolality Calculated 288 mOsm/kg (285-295); Sodium 137 mmol/L (136-145)
[2024-01-01 20:04] LABS: Anion Gap 19.3 (5-19); Potassium 4.3 mmol/L (3.5-5.1)
[2024-01-01 20:58] LABS: Glucose Point of Care 264 mg/dL (70-110)
[2024-01-01 21:28] LABS: Blood Urea Nitrogen 4 mg/dL (6-20); Calcium 8.3 mg/dL (8.5-10.5); Carbon Dioxide 18 mmol/L (22-29); Chloride 101 mmol/L (98-107); Creatinine Clr Calc Pharmacy 228.1384; Glomerular Filtration Rate 170.1 mL/min (90-130); Glucose 283 mg/dL (65-115); Osmolality Calculated 283 mOsm/kg (285-295); Sodium 133 mmol/L (136-145)
[2024-01-01 22:01] LABS: Glucose Point of Care 265 mg/dL (70-110)
[2024-01-01] MEDS: sodium chloride 0.9% 1,000 ML 100 ML IV (22:53)
[2024-01-01] MEDS: insulin glargine 100 units/1 mL 10 UNIT SUBCUT (22:53)
[2024-01-01 23:14] LABS: Glucose Point of Care 222 mg/dL (70-110)
[2024-01-01 23:59] LABS: Glucose Point of Care 224 mg/dL (70-110)
[2024-01-02] VITALS (18 sets, daily range): BP systolic 103–129; BP diastolic 64–87; PULSE 77–102; RESP 14–23; TEMP 36.7–36.8; O2SAT 93–99
[2024-01-02 01:00] LABS: Anion Gap 17.9 (5-19); Blood Urea Nitrogen 4 mg/dL (6-20); Calcium 8.3 mg/dL (8.5-10.5); Carbon Dioxide 20 mmol/L (22-29); Chloride 102 mmol/L (98-107); Creatinine Clr Calc Pharmacy 195.5472; Glomerular Filtration Rate 142.4 mL/min (90-130); Glucose 258 mg/dL (65-115); Osmolality Calculated 288 mOsm/kg (285-295); Potassium 3.9 mmol/L (3.5-5.1); Sodium 136 mmol/L (136-145)
[2024-01-02 01:07] LABS: Glucose Point of Care 238 mg/dL (70-110)
[2024-01-02 02:06] LABS: Glucose Point of Care 288 mg/dL (70-110)
[2024-01-02 04:48] LABS: Basophils % 0.3 %; Eosinophils # 0.1 10^3/uL (0.0-0.8); Eosinophils % 0.8 %; Hematocrit 42.7 % (37-53); Lymphocytes # 2.6 10^3/uL (0.8-4.8); Lymphocytes % 43.6 %; Mean Corpuscular HGB Conc 34.2 g/dL (30-55); Mean Corpuscular Hemoglobin 28.9 pg (27-33); Mean Corpuscular Volume 84.6 fl (82-101); Mean Platelet Volume 9.6 fL (7.4-10.4); Monocytes # 0.4 10^3/uL (0.2-0.9); Monocytes % 7.4 %; Neutrophils # 2.83 10^3/uL (1.8-7.7); Neutrophils % 47.7 %; Nucleated Red Blood Cells % 0 %; Platelet Count 234 10^3/cmm (157-399); Red Blood Count 5.05 10^6/uL (3.85-5.65); Red Cell Distribution Width 12.1 % (12.1-15.1); White Blood Count 5.94 10^3/uL (3.29-11.43)
[2024-01-02 05:11] LABS: Alanine Aminotransferase 13 U/L (0-41); Albumin Level 3.4 g/dL (3.5-5.2); Alkaline Phosphatase 106 U/L (40-130); Anion Gap 21.6 (5-19); Aspartate Amino Transferase 10 U/L (0-40); Blood Urea Nitrogen 6 mg/dL (6-20); Calcium 8.2 mg/dL (8.5-10.5); Carbon Dioxide 17 mmol/L (22-29); Chloride 99 mmol/L (98-107); Creatinine Clr Calc Pharmacy 195.5472; Globulin 1.9 g/dL (1.3-4.6); Glomerular Filtration Rate 142.4 mL/min (90-130); Glucose 365 mg/dL (65-115); Osmolality Calculated 288 mOsm/kg (285-295); Potassium 4.6 mmol/L (3.5-5.1); Sodium 133 mmol/L (136-145); Total Bilirubin 0.6 mg/dL (0.15-1.2); Total Protein 5.3 g/dL (6.6-8.7)
[2024-01-02 06:53] LABS: Glucose Point of Care 383 mg/dL (70-110)
[2024-01-02] MEDS: insulin lispro 100 unit/1 mL SUBCUT ×4 (07:01→21:33)
[2024-01-02] MEDS: sodium chloride 0.9% 1,000 ML 100 ML IV (09:00)
[2024-01-02 09:18] LABS: Anion Gap 21.9 (5-19); Blood Urea Nitrogen 6 mg/dL (6-20); Calcium 8.4 mg/dL (8.5-10.5); Carbon Dioxide 16 mmol/L (22-29); Chloride 101 mmol/L (98-107); Creatinine Clr Calc Pharmacy 196.0194; Glomerular Filtration Rate 142.4 mL/min (90-130); Glucose 384 mg/dL (65-115); Osmolality Calculated 293 mOsm/kg (285-295); Potassium 3.9 mmol/L (3.5-5.1); Sodium 135 mmol/L (136-145)
[2024-01-02 09:52] LABS: Glucose Point of Care 225 mg/dL (70-110)
[2024-01-02] MEDS: sodium bicarbonate 50 MEQ in sodium chloride 0.45% 1,000 ML 125 MEQ IV (10:25)
[2024-01-02] MEDS: insulin glargine 100 units/1 mL 15 UNIT SUBCUT (10:26)
[2024-01-02] MEDS: potassium chloride ER 20 mEq Tablet 40 MEQ PO (10:31)
[2024-01-02 10:58] LABS: Glucose Point of Care 239 mg/dL (70-110)
[2024-01-02 12:23] LABS: Anion Gap 16.2 (5-19); Blood Urea Nitrogen 7 mg/dL (6-20); Calcium 8.2 mg/dL (8.5-10.5); Carbon Dioxide 21 mmol/L (22-29); Chloride 103 mmol/L (98-107); Creatinine Clr Calc Pharmacy 196.0194; Glomerular Filtration Rate 142.4 mL/min (90-130); Glucose 227 mg/dL (65-115); Osmolality Calculated 287 mOsm/kg (285-295); Potassium 4.2 mmol/L (3.5-5.1); Sodium 136 mmol/L (136-145)
--- NOTE | 2024-01-02 14:52 | PM.PN ---
Subjective Subjective: Patient was seen this morning, denies any polyuria, no polydipsia, no polyphagia we discussed his increasing anion gap, we will give him a dose of Lantus this morning, continue insulin/scale recheck his blood sugar thereafter and recheck his BMP, if his anion gap normalizes we can hopefully avoid him going back on the insulin drip, if his anion gap continues to prolong, blood sugars are elevated will might have to go back on insulin drip, he is agreeable -Started on a bicarb drip, 515 units Lantus, high-dose sliding scale -Repeat anion gap 16.2, blood sugar reasonable at 227, bicarb 21 -Anion gap remains closed at 16.2, bicarb is reasonable, blood sugar reasonable no drip currently required -Will continue Lantus, high-dose sliding scale, repeat BMP at 6 PM, moved to [facility] -Possibly resuming patient's insulin drip however it is currently not charged, so it is not possible currently, will consider resuming his insulin drip tomorrow morning Vitals/I&O/Wt Last Vital Signs Temp 98.1 F 01/02/24 05:59 Pulse 93 01/02/24 13:00 Resp 20 H 01/02/24 13:00 BP 114/69 01/02/24 07:00 Pulse Ox 98 01/02/24 13:00 O2 Del Method Room Air 01/01/24 10:53 01/01/24 01/02/24 01/02/24 22:59 06:59 14:59 Intake Total 1249.384 / 2262.867 8.000 / 2270.867 1618.333 / 1618.333 Output Total 850 / 850 800 / 1650 1600 / 1600 Balance 399.384 / 1412.867 -792.000 / 620.867 18.333 / 18.333 Weight last 48 hrs Weight 101.5 kg Weight 101 kg Physical Exam Const: COMMON NORMALS: no acute distress and patient oriented x3 Resp: COMMON NORMALS: normal respiratory effort, No retractions, No use of accessory muscles and clear to auscultation bilaterally AUSCULTATION: clear to auscultation bilaterally Cardio: COMMON NORMALS: regular rate, regular rhythm, S1 normal heart sound present and S2 normal heart sound present RATE: regular rate RHYTHM: regular rhythm HEART SOUNDS: S1 normal heart sound present and S2 normal heart sound present GI: COMMON NORMALS: Normal to inspection, nondistended, normoactive bowel sounds present and non-tender Extremity: COMMON NORMALS: no pedal edema Neuro: COMMON NORMALS: patient oriented x3 Psych: COMMON NORMALS: mental status grossly normal Data 01/02/24 04:36 01/02/24 12:00 A&P Assessment and plan (1) Poorly controlled type 1 diabetes mellitus: (2) Diabetic ketoacidosis: (3) Dehydration: (4) Acidosis due to type 1 diabetes mellitus: Plan DKA Anion gap closed at 16.2, bicarb 21, blood sugar 239 Lantus 10 units at bedtime tonight, with high-dose sliding scale Diabetic diet Full code DVT prophylaxis added Patient was seen this morning, denies any polyuria, no polydipsia, no polyphagia we discussed his increasing anion gap, we will give him a dose of Lantus this morning, continue insulin/scale recheck his blood sugar thereafter and recheck his BMP, if his anion gap normalizes we can hopefully avoid him going back on the insulin drip, if his anion gap continues to prolong, blood sugars are elevated will might have to go back on insulin drip, he is agreeable -Started on a bicarb drip, 515 units Lantus, high-dose sliding scale -Repeat anion gap 16.2, blood sugar reasonable at 227, bicarb 21 -Anion gap remains closed at 16.2, bicarb is reasonable, blood sugar reasonable no drip currently required -Will continue Lantus, high-dose sliding scale, repeat BMP at 6 PM, moved to [facility] -Possibly resuming patient's insulin drip however it is currently not charged, so it is not possible currently, will consider resuming his insulin drip tomorrow morning Attestations Medical Necessity Statement*: Patient requires hospitalization for diabetic ketoacidosis Diagnoses Poorly controlled type 1 diabetes mellitus E10.65 Diabetic ketoacidosis E11.10 Dehydration E86.0 Acidosis due to type 1 diabetes mellitus E10.10
[2024-01-02 16:57] LABS: Glucose Point of Care 265 mg/dL (70-110)
[2024-01-02 18:17] LABS: Anion Gap 17.6 (5-19); Blood Urea Nitrogen 8 mg/dL (6-20); Calcium 8.7 mg/dL (8.5-10.5); Carbon Dioxide 24 mmol/L (22-29); Chloride 99 mmol/L (98-107); Creatinine Clr Calc Pharmacy 196.0194; Glomerular Filtration Rate 142.4 mL/min (90-130); Glucose 357 mg/dL (65-115); Osmolality Calculated 295 mOsm/kg (285-295); Potassium 4.6 mmol/L (3.5-5.1); Sodium 136 mmol/L (136-145)
[2024-01-02 20:19] LABS: Glucose Point of Care 227 mg/dL (70-110)
--- NOTE | 2024-01-02 20:26 | PC.NURSE ---
Patient did not have IVs upon my arrival on shift. Patient states they told me down there I could take them off. They told me I could take off all my stickers.
[2024-01-02 21:27] LABS: Glucose Point of Care 209 mg/dL (70-110)
[2024-01-02] MEDS: insulin glargine 100 units/1 mL 10 UNIT SUBCUT (21:34)
[2024-01-02] MEDS: enoxaparin 40 mg/0.4 mL Syringe SUBCUT (21:34)
[2024-01-03 04:00] VITALS: BP 116/73; PULSE 101; RESP 20; TEMP 36.6; O2SAT 98
[2024-01-03 05:07] LABS: Basophils # 0.1 10^3/uL (0.0-0.1); Basophils % 0.8 %; Eosinophils # 0.1 10^3/uL (0.0-0.8); Eosinophils % 1.7 %; Hematocrit 44.1 % (37-53); Lymphocytes % 67.7 %; Mean Corpuscular Hemoglobin 28.1 pg (27-33); Mean Corpuscular Volume 82.7 fl (82-101); Mean Platelet Volume 9.5 fL (7.4-10.4); Monocytes # 0.4 10^3/uL (0.2-0.9); Monocytes % 7.4 %; Neutrophils # 1.32 10^3/uL (1.8-7.7); Neutrophils % 22.2 %; Nucleated Red Blood Cells % 0 %; Platelet Count 238 10^3/cmm (157-399); Red Blood Count 5.33 10^6/uL (3.85-5.65); Red Cell Distribution Width 11.8 % (12.1-15.1); White Blood Count 5.95 10^3/uL (3.29-11.43)
[2024-01-03 05:24] LABS: Alanine Aminotransferase 12 U/L (0-41); Albumin Level 3.9 g/dL (3.5-5.2); Alkaline Phosphatase 115 U/L (40-130); Anion Gap 16.3 (5-19); Aspartate Amino Transferase 11 U/L (0-40); Blood Urea Nitrogen 9 mg/dL (6-20); Calcium 8.5 mg/dL (8.5-10.5); Carbon Dioxide 25 mmol/L (22-29); Chloride 102 mmol/L (98-107); Creatinine Clr Calc Pharmacy 274.4272; Globulin 2.5 g/dL (1.3-4.6); Glomerular Filtration Rate 209.9 mL/min (90-130); Glucose 104 mg/dL (65-115); Osmolality Calculated 289 mOsm/kg (285-295); Potassium 3.3 mmol/L (3.5-5.1); Sodium 140 mmol/L (136-145); Total Bilirubin 0.5 mg/dL (0.15-1.2); Total Protein 6.4 g/dL (6.6-8.7)
[2024-01-03 06:42] LABS: Glucose Point of Care 124 mg/dL (70-110)
[2024-01-03 07:44] VITALS: BP 117/73; PULSE 100; RESP 18; TEMP 36.5; O2SAT 95
[2024-01-03 08:56] VITALS: PULSE 108; RESP 16; O2SAT 98
[2024-01-03 11:30] LABS: Glucose Point of Care 311 mg/dL (70-110)
--- NOTE | 2024-01-03 11:41 | P.DS_ITS ---
Discharge Providers Date of Admission: 12/30/23 21:16 Date of Discharge: January 03, 2024 Attending Provider at Admission: Jyoti Sy MD Attending Provider at Discharge: Demario Guerin MD Primary Care Provider: Ryanne Kimball MD Diagnoses at Discharge Discharge Diagnosis (1) Poorly controlled type 1 diabetes mellitus: Status: Acute (2) Diabetic ketoacidosis: Status: Acute (3) Dehydration: Status: Acute (4) Acidosis due to type 1 diabetes mellitus: Status: Acute Reason for Visit Reason for Visit: diabetic n/v bs high CP rapid breathing Hospital Course Hospital Course This is a 23-year-old male with a past medical history of insulin-dependent type 1 diabetes mellitus who presents [facility] for hyperglycemia, nausea, vomiting, as patient was sleeping, and his insulin pump transmitter, baby stroller rental clerk came off Patient was admitted to [facility] for diabetic ketoacidosis, required prolonged ICU admission, with insulin drip, patient is gap closed, was transition to subcut insulin, Lantus, overall clinically improved. Patient was having issues getting his transmitter and baby stroller rental clerk through an outside pharmacy, I was able to order it for patient through our pharmacy and get it delivered and fitted as inpatient. Patient was monitored on his home insulin pump, as inpat ient, blood sugars remain reasonable, discharged home. Patient did receive Lantus at bedtime 01/02/2024, and subcut insulin the morning of 01/20/2024 discussed with him to monitor closely for the risk of hypoglycemia. - Continue insulin pump -Monitor blood sugars closely -Monitor for hypoglycemia -Follow-up with Dr. Potts in 1 week -Please monitor your blood sugars closely -Monitor your blood sugars throughout the day -Please record your blood sugars, and a blood sugar log -Do not inject insulin if you do not eat as hypoglycemia kills -If your blood sugar is greater than 500 go to the emergency room -If your blood sugar is less than 60 or at anytime you feel lightheaded or dizzy or diaphoretic or have chest palpitations check your blood sugar, and eat a hard candy or drink orange juice and go immediately to the emergency room -Remember hypoglycemia kills, so if his blood sugar is less than 60 we have to increase it by taking in a sugary meal such as a hard candy or orange juice and go to the emergency room -If you have any questions please call us where here to help Physical Exam Const: COMMON NORMALS: no acute distress and patient oriented x3 Resp: COMMON NORMALS: normal respiratory effort, No retractions, No use of accessory muscles and clear to auscultation bilaterally AUSCULTATION: clear to auscultation bilaterally Cardio: COMMON NORMALS: regular rate, regular rhythm, S1 normal heart sound present and S2 normal heart sound present RATE: regular rate RHYTHM: regular rhythm HEART SOUNDS: S1 normal heart sound present and S2 normal heart sound present GI: COMMON NORMALS: Normal to inspection, nondistended, normoactive bowel sounds present and non-tender Extremity: COMMON NORMALS: no pedal edema Neuro: COMMON NORMALS: patient oriented x3 Psych: COMMON NORMALS: mental status grossly normal Discharge Data Studies Completed and Pending Completed Studies During Hospitalization Category Date Time Status XR chest 1V portable [id number] Stat Exams 12/30/23 20:36 Completed Radiology Impressions Chest X-Ray 12/30/23 20:36 IMPRESSION: No acute findings. Laboratory Results WBC 5.95 10^3/uL (3.29-11.43) 01/03/24 04:48 RBC 5.33 10^6/uL (3.85-5.65) 01/03/24 04:48 Hgb 15.00 g/dL (11.27-16.99) 01/03/24 04:48 Hct 44.1 % (37-53) 01/03/24 04:48 MCV 82.7 fl (82-101) 01/03/24 04:48 MCH 28.1 pg (27-33) 01/03/24 04:48 MCHC 34.0 g/dL (30-55) 01/03/24 04:48 RDW 11.8 % (12.1-15.1) L 01/03/24 04:48 Plt Count 238 10^3/cmm (157-399) 01/03/24 04:48 MPV 9.5 fL (7.4-10.4) 01/03/24 04:48 Neut % (Auto) 22.2 % 01/03/24 04:48 Lymph % (Auto) 67.7 % 01/03/24 04:48 [place] % (Auto) 7.4 % 01/03/24 04:48 Eos % (Auto) 1.7 % 01/03/24 04:48 Baso % (Auto) 0.8 % 01/03/24 04:48 Neut # (Auto) 1.32 10^3/uL (1.8-7.7) L 01/03/24 04:48 Lymph # (Auto) 4.0 10^3/uL (0.8-4.8) 01/03/24 04:48 [place] # (Auto) 0.4 10^3/uL (0.2-0.9) 01/03/24 04:48 Eos # (Auto) 0.1 10^3/uL (0.0-0.8) 01/03/24 04:48 Baso # (Auto) 0.1 10^3/uL (0.0-0.1) 01/03/24 04:48 Nucleated RBC % (auto) 0 % 01/03/24 04:48 Nucleated RBCs # 0.0 /100WBC 01/03/24 04:48 Specimen Type Arterial 12/30/23 20:58 Sample Site Radial, right 12/30/23 20:58 ABG pH 7.15 (7.35-7.45) L* 12/30/23 20:58 ABG pCO2 17.0 mmHg (35-45) L* 12/30/23 20:58 ABG pO2 112.0 mmHg (80.0-100.0) H 12/30/23 20:58 ABG PO2/FiO2 Ratio 533 12/30/23 20:58 ABG HCO3 5.9 mmol/L (22-26) L 12/30/23 20:58 ABG O2 Saturation 98.3 12/30/23 20:58 ABG Base Excess -20.7 mmol/L (-2.0-2.0) L 12/30/23 20:58 Rob Test Pos 12/30/23 20:58 A-a O2 Gradient 1.8 mmHg (5-10) L 12/30/23 20:58 Hematocrit 50.8 % (42-52) 12/30/23 20:58 Hgb O2 Saturation 96.3 % (95-100) 12/30/23 20:58 Carboxyhemoglobin 1.0 %THgb (0.4-20.1) 12/30/23 20:58 Methemoglobin 1.0 % (0.4-1.5) 12/30/23 20:58 Total Hemoglobin 16.6 g/dL (14-18) 12/30/23 20:58 Sodium 134.0 mmol/L (131-143) 12/30/23 20:58 Potassium 5.1 mmol/L (3.5-5.0) H 12/30/23 20:58 Glucose 492.0 mg/dL (70-115) H 12/30/23 20:58 Ionized Calcium 1.2 mmol/L (1.1-1.4) 12/30/23 20:58 O2 Delivery Device None 12/30/23 20:58 FiO2 21.0 % 12/30/23 20:58 Cardiothoracic Surgeon ID [email or web address] 12/30/23 20:58 Sodium 140 mmol/L (136-145) 01/03/24 04:48 Potassium 3.3 mmol/L (3.5-5.1) L 01/03/24 04:48 Chloride 102 mmol/L (98-107) 01/03/24 04:48 Carbon Dioxide 25 mmol/L (22-29) 01/03/24 04:48 Anion Gap 16.3 (5-19) 01/03/24 04:48 BUN 9 mg/dL (6-20) 01/03/24 04:48 Creatinine 0.5 mg/dL (0.7-1.2) L 01/03/24 04:48 GFR Calculation 209.9 mL/min (90-130) H 01/03/24 04:48 Glucose 104 mg/dL (65-115) 01/03/24 04:48 POC Glucose 311 mg/dL (70-110) H 01/03/24 10:51 Calculated Osmolality 289 mOsm/kg (285-295) 01/03/24 04:48 Calcium 8.5 mg/dL (8.5-10.5) 01/03/24 04:48 Phosphorus 4.5 mg/dL (2.5-4.5) 12/30/23 23:33 Phosphorus Cancelled 12/30/23 23:33 Magnesium 2.1 mg/dL (1.7-2.3) 12/31/23 03:57 Total Bilirubin 0.5 mg/dL (0.15-1.2) 01/03/24 04:48 AST 11 U/L (0-40) 01/03/24 04:48 ALT 12 U/L (0-41) 01/03/24 04:48 Alkaline Phosphatase 115 U/L (40-130) 01/03/24 04:48 Total Protein 6.4 g/dL (6.6-8.7) L 01/03/24 04:48 Albumin 3.9 g/dL (3.5-5.2) 01/03/24 04:48 Globulin 2.5 g/dL (1.3-4.6) 01/03/24 04:48 Urine Color Yellow (Yellow) 12/30/23 20:46 Urine Appearance Clear (CLEAR) 12/30/23 20:46 Urine pH 5.0 (5-7) 12/30/23 20:46 Ur Specific [place] 1.030 (1.005-1.030) 12/30/23 20:46 Urine Protein 1+ (Negative) A 12/30/23 20:46 Urine Glucose (UA) 3+ (Normal) H 12/30/23 20:46 Urine Ketones 4+ (Negative) 12/30/23 20:46 Urine Blood Negative (Negative) 12/30/23 20:46 Urine Nitrate Negative (Negative) 12/30/23 20:46 Urine Bilirubin Negative (Negative) 12/30/23 20:46 Urine Urobilinogen 0.2 mg/dL (Negative) 12/30/23 20:46 Ur Leukocyte Esterase Negative (Negative) 12/30/23 20:46 Urine RBC 0-2 /hpf (0-2) 12/30/23 20:46 Urine WBC 0-5 /hpf (0-5) 12/30/23 20:46 Ur Squamous Epith Cells 0-5 /hpf (0-5) 12/30/23 20:46 Amorphous Sediment Not Reportable 12/30/23 20:46 Urine Bacteria None seen /hpf (NONE) 12/30/23 20:46 Hyaline Casts 0.40 /lpf 12/30/23 20:46 Serum Ketones Positive (Negative) H 12/30/23 20:39 Vitals Last Vital Signs Temp 97.7 F 01/03/24 07:44 Pulse 108 H 01/03/24 08:56 Resp 16 01/03/24 08:56 BP 117/73 01/03/24 07:44 Pulse Ox 98 01/03/24 08:56 O2 Del Method Room Air 01/03/24 08:56 Discharge Plan Discharge Patient Disposition: Home Condition: Stable Prescriptions: Continued insulin lispro 100 unit/mL insulin pen See Rx Instructions .ROUTE .COMPLEX Qty: 15 0RF Dose Instruction: INJECT SUBCUTANEOUSLY THREE TIMES DAILY PER SLIDING SCALE DEPENDING ON CARBS AND BLOOD SUGAR. MAX DAILY DOSE OF 71 UNITS Rx Instructions: INJECT SUBCUTANEOUSLY THREE TIMES DAILY PER SLIDING SCALE DEPENDING ON CARBS AND BLOOD SUGAR. MAX DAILY DOSE OF 71 UNITS multivitamin Tablet 1 tab PO QAM cholecalciferol (vitamin D3) [Vitamin D3] 125 mcg (5,000 unit) Tablet 10,000 unit PO Q7D Rx Instructions: on sat glucagon HCl [Glucagon (HCl) Emergency Kit] 1 mg Recon Soln 1 mg SUBCUT Q20M PRN (Reason: blood sugar) Rx Instructions: until target blood sugar attained No Action (DME) pen needle, diabetic [Comfort EZ Pen [place]] 32 gauge x 5/32 needle See Rx Instructions .Route Qty: 450 3RF Rx Instructions: Use with insulin shots 5 times a day. (DME) Dexcom G6 Transmitter Device See Rx Instructions .ROUTE .MEDSUPPLY Qty: 6 0RF Rx Instructions: change every 3 months (DME) Dexcom G6 Sensor Device See Rx Instructions .ROUTE .COMPLEX Qty: 9 0RF Dose Instruction: CHANGE SENSOR EVERY 10 DAYS Rx Instructions: CHANGE SENSOR EVERY 10 DAYS Discharge Orders: Discharge Order (Routine); Ordered 01/03/24 Ordered By: Demario Guerin Referrals: Ryanne Kimball MD [Primary Care Provider] - 01/10/24 9:00 am Kandice Potts MD [Physician] - 1 week Discharge Diet: Cardiac Discharge Activity: Resume usual activity Patient Instructions: Opioid Safety Activity Restrictions/Additional Instructions: - Continue insulin pump -Monitor blood sugars closely -Monitor for hypoglycemia -Follow-up with Dr. Potts in 1 week -Please monitor your blood sugars closely -Monitor your blood sugars throughout the day -Please record your blood sugars, and a blood sugar log -Do not inject insulin if you do not eat as hypoglycemia kills -If your blood sugar is greater than 500 go to the emergency room -If your blood sugar is less than 60 or at anytime you feel lightheaded or dizzy or diaphoretic or have chest palpitations check your blood sugar, and eat a hard candy or drink orange juice and go immediately to the emergency room -Remember hypoglycemia kills, so if his blood sugar is less than 60 we have to increase it by taking in a sugary meal such as a hard candy or orange juice and go to the emergency room -If you have any questions please call us where here to help Discharge Attestations Time Spent in Discharge Care*: greater than 30 min Quality Metrics Clinical Quality Measures [ No reported AMI, CVA or VTE this stay] Coding Level of Care Code 60075 Total time (in minutes) for Discharge: 45 Diagnoses Poorly controlled type 1 diabetes mellitus E10.65 Diabetic ketoacidosis E11.10 Dehydration E86.0 Acidosis due to type 1 diabetes mellitus E10.10
[2024-01-03 11:59] VITALS: BP 112/69; PULSE 81; RESP 18; TEMP 36.8; O2SAT 97
[2024-01-03] MEDS: potassium chloride ER 20 mEq Tablet 40 MEQ PO (12:59)
--- NOTE | 2024-01-03 17:13 | PC.NURSE ---
Discussed discharge with patient. New medications and to watch blood sugar closely. Medication sent to pharmacy per Dr. Guerin, Insulin pen. Patient verbalized understanding of blood sugar and follow up appointments.
[2024-01-03 17:41] VITALS: BP 112/69; PULSE 81; RESP 18; TEMP 36.8; O2SAT 97
== END 2024-01-03 14:23 | disposition home or self-care (01) | DRG 639 ==
LOC: ER 21:27 → ICU 23:18 → MEDSURG 01-02 16:01
PROVIDERS: Admitting Provider Internal Medicine; Emergency Provider Emergency Medicine; PCP Family Medicine; Visit Provider Family Medicine
DX: E10.10 Type 1 diabetes mellitus with ketoacidosis without coma (principal); Z96.41 Presence of insulin pump (external) (internal); E86.0 Dehydration
CPT/HCPCS: 36415; 36416; 36600; 71045; 80048; 80051; 80053; 81001; 82009; 82330; 82805; 82962; 83735; 84100; 85025; 93005; 96365; 96367; 96372; 96374; 96376; 99285; J0612; J1650; J1815; J2405; J7030; J7070

== ENCOUNTER 2024-08-28 15:11 | Inpatient (IN) | payer OTHER, SELFPAY ==
[2024-08-28] VITALS (19 sets, daily range): BP systolic 101–145; BP diastolic 65–97; PULSE 112–148; RESP 13–29; TEMP 36.4–36.7; O2SAT 96–100; BMI 26.9
--- OUTSIDE RECORDS SUMMARY | 2024-08-28 15:16 | XMS_ITS | Encounter Summary ---
Author Organization [facility] Address [address] [place] [address] Care Team Providers Care Agency Owner Name Role Phone Poli Montemayor MD Primary Care Provider Encounter Details Date Type Department Care Team (Late st Contact Info) Description 03/15/2007 Outpatient Historical [facility] [address] [place] [id number] Mainor Davalos, [employer] [address] [place] [id number] Social History Tobacco Use Types Packs/Day Years Used Date Smoking Tobacco: Never Assessed Sex and Gender Information Value Date Recorded Sex Assigned at Not on file Legal Sex Male 6:54 AM [employer]ODUCTION LE[employer] Gender Identity Not on file Sexual Orientation Not on file documented as of this encounter Plan of Treatment Not on file documented as of this encounter Visit Diagnoses Not on filedocumented in this encounter Additional Health Concerns Infection Onset Date Last Indicated Resolved Time MRSA Comment:Resolved 09/06/2012 09/06/2012 03/19/2015 12:29 PM PRODUCTION LEAD documented as of this encounter Care Teams Agency Owner Relationship Specialty Start Date End Date Poli Montemayor MD [address] [place] [address] PCP - General Family Practice 04/22/15 documented as of this encounter
--- OUTSIDE RECORDS SUMMARY | 2024-08-28 15:16 | XMS_ITS | Clinical Summary ---
Author Organization [facility] Address [address] [place] [address] Phone Care Team Providers Care Assistant Broker Name Role Phone Poli Montemayor MD Primary Care Provider [phone] Allergies No known active allergies Medications Insulin Syringe-Needle U-100 0.3 mL 31 x 07/05 Mis SyrgIndications:T ype I (juvenile type) diabetes mellitus without mention of complication, not stated as uncontrolled (CMS/HCC) To be used nightly with lantus and prn 100 Each 09/06/19 13 Active Acetone, Urine, Test (KETOSTIX) Misc StrpIndications:T ype I (juvenile type) diabetes mellitus without mention of complication, not stated as uncontrolled (CMS/HCC) 1 Each by Misc.(Non-Drug; Combo Route) route see administration instructions. When blood sugar greater than 240 2 Package 09/06/19 13 Active lancets (ONE TOUCH DELICA) 33 gaugeIndications: Type I (juvenile type) diabetes mellitus without mention of complication, not stated as uncontrolled (CMS/HCC) 1 Each by Misc.(Non-Drug; Combo Route) route see administration instructions. To test blood sugar 8-10 times daily 900 Each 12/21/19 14 Active Cholecalciferol, Vitamin D3, 2,000 unit CapsuleIndication s:Type I (juvenile type) diabetes mellitus without mention of complication, not stated as uncontrolled (CMS/HCC),Vitamin D insufficiency Take 20,000 Units by mouth every Monday . Active PRECISION XTRA B-KETONE Strip TO BE USED WHEN BLOOD SUGAR IS GREATER THAN 240 OR WHEN FEELING ILL. 90 Strip 09/15/19 17 Active ONETOUCH VERIO Strip USE TO CHECK BLOOD SUGARS 8-10 TIMES DAILY. 300 Strip 08/10/19 18 Active insulin degludec (TRESIBA FLEXTOUCH U-100) 100 unit/mL pen syringe Up to 70 units daily. 30 mL 10/25/19 19 Active Additional Information Patient taking differently: TWO TIMES DAILY, 30 units in the am and 33 units in the pm. Up to 70 units daily., Reported on 07/01/2020 blood sugar diagnostic (ONETOUCH VERIO) Strip TO BE USED TO TEST BLOOD SUGARS 8 TO 10 TIMES DAILY 300 Strip 3 10/25/19 19 Active metFORMIN (GLUCOPHAGE) 500 mg tablet Take 2 Tablets (1,000 mg) by mouth 2 times daily with meals. 360 Tablet 3 10/26/19 Active HUMALOG U-100 INSULIN 100 unit/mL cartridge INJECT UP TO 100 UNITS DAILY PER LUXURA PEN. 30 mL 03/13/19 20 Active insulin regular (HumuLIN R Regular U-100 Insuln) 100 unit/mL vial TO BE USED ON DAYS WITH MODERATE OR LARGE KEYTONES. CALL DOCTOR FOR DOSE. USE UP TO 40 UNITS. 10 mL 10/11/19 Active Dexcom G6 Sensor DeviceIndications :Type 1 diabetes mellitus with hyperglycemia (CMS/HCC) To be used for monitoring glucoses every 5 minutes, change sensor every 10 days. 3 Each 12/11/19 Active multivitamin (DAILY-DESHAWN) tabletIndications :Type 1 diabetes mellitus with hyperglycemia (CMS/HCC) Take 1 Tablet by mouth daily. Active Baqsimi 3 mg/actuation [place], Non-AerosolIndica tions:Type 1 diabetes mellitus with hyperglycemia (CMS/HCC) To be used for severe hypoglycemia that results in unconsciousness and/or seizures. 2 Each 12/11/19 Active glucagon (Gvoke HypoPen 2-Pack) 1 mg/0.2 mL Auto-InjectorIndi cations:Type 1 diabetes mellitus with hyperglycemia (CMS/HCC) Inject 1 mg by subcutaneous injection one time as needed for Other (See Comment) (unconsciousness and/or seizures). 2 Syringe 12/11/19 Active glucagon human recombinant (glucagon emergency) 1 mg Recon SolnIndications:T ype 1 diabetes mellitus with hyperglycemia (CMS/HCC) INJECT 1MG INTRAMUSCULARLY ONE TIME ONLY FOR 1 DOSE FOR HYPOGLYCEMIA WITH UNCONSCIOUSNESS OR CONVULSION. 2 Each 12/11/19 Active Insulin [place], Disposable, (Ryanne Pen Needle) 32 gauge x 5/32 NeedleIndications :Type 1 diabetes mellitus without complication (CMS/HCC),Vitamin D insufficiency,Obe sity peds (BMI >=95 percentile) USE FOR INSULIN INJECTIONS UP TO 10 TIMES DAILY. 300 Each 01/23/20 Active Dexcom G6 Transmitter DeviceIndications :Type 1 diabetes mellitus with hyperglycemia (CMS/HCC) TO BE USED FOR T1DM. CHANGE TRANSMITTER EVERY 3 MONTHS. 1 Each 3 07/03/19 Active Active Problems Problem Noted Date Diagnosed Date Type 1 diabetes mellitus with hyperglycemia 11/20 Dehydration 11/29/2018 Dyslipidemia 08/09/2017 Vitamin D deficiency 03/18/2015 Vitamin D insufficiency 10/16/2013 Obesity peds (BMI >=95 percentile) 03/19/2013 Type I diabetes mellitus 09/05/2012 Overview (09/05/2012): New onset Type 1 diabetes mellitus with ketosis Type 1 diabetes mellitus without complication Resolved Problems Problem Noted Date Diagnosed Date Resolved Date Hypokalemia 09/06/2012 10/25/2012 DKA (diabetic ketoacidoses) 09/05/2012 09/06/2012 MRSA nasal colonization 09/05/201202/21 Immunizations Immunization Administration Dates Next Due (M-M-R II/PRIORIX)(12 MO UP) MEASLES, MUMPS AND RUBELLA VIRUS VACCINE, 0.5 ML IM/SUBCUT 09/26/2007 (VARIVAX)(12 MOS UP)VARICELL A VIRUS VACCINE (PF) 0.5 ML, SUB CUT 11/04/2005 Dt Dtp Dtap Vaccine 09/26/2007 INFLUENZA VACCINE QUADRIVALENT 3 YR UP PF IM 11/2017 INFLUENZA VACCINE QUADRIVALENT 6 MOS UP PF IM IPV/OPV 09/26/2007 Influenza Seasonal Unspecified Formulation IM ,12/08/2016 Influenza Vaccine Split 3+ Yrs PF IM 12/24/2015, 03/19/2013 Family History Medical History Relation Name Comments Healthy Brother 1 Healthy Father Thyroid Disease Maternal Grandmother Healthy Mother Heart Disease Paternal Grandfather Healthy Sister 1 Relation Name Status Comments Brother 1 Alive Brother 2 Alive Father Alive Maternal Grandmother Mother Alive Paternal Grandfather Sister 1 Alive Sister 2 Alive Social History Tobacco Use Types Packs/Day Years Used Date Smoking Tobacco: Never Alcohol Use Standard Drinks/Week Comments Not Asked 0 (1 standard drink = 0.6 oz pur e alcohol) Sex and Gender Information Value Date Recorded Sex Assigned at Not on file 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 Gender Identity Not on file Sexual Orientation Not on file Last Filed Vital Signs Vital Sign Reading Time Taken Comments Blood Pressure 116/68 07/01/2020 9:13 AM CDT manual bp lg rt Pulse 82 07/01/2020 9:13 AM CDT Temperature 36.8 C (98.3 F) 11/30/2018 8:03 AM CDT Respiratory Rate 18 11/30/2018 8:03 AM CDT Oxygen Saturation 100% 11/30/2018 8:0 3 AM CDT Inhaled Oxygen Concentration - - Weight 88.1 kg (194 lb 3.6 oz) 07/01/2020 9:13 AM CDT Height 174.4 cm (5' 8.66 ) 07/01/2020 9 :13 AM CDT Body Mass Index 28.97 07/01/2020 9:13 AM CDT Plan of Treatment Health Maintenance Due Date Last Done Comments HPV VACCINES (1 - Male 3-dos e series) 2017 DIABETES ANNUAL FOOT EXAM 2020 DIABETES ANNUAL RETINAL EXAM 2020 DIABETES HBA1C Q 6 MONTHS 01/01/20212020, 03/25/2020, 12/11/2019, Additional history exists DTAP/TDAP/TD VACCINES (2 - Tdap) 2021 09/26/19 08 HEPATITIS B VACCINES (1 of 3 - 19+ 3-dose series) 2021 DIABETES MICROALBUMIN ANNUAL SCREEN 07/01/2021 07/01/2020, 10/23/2019, 10/24/2018, Additional history exists LDL CHOLESTEROL ANNUAL 07/01/2021 1, 12/17/2019, 10/23/2019, Additional history exists INFLUENZA VACCINE (#1) 2024 0, 11/30/2018, 11/29/2017, Additional history exists Procedures Procedure Name Priority Date/Time Associated Diagnosis Comments MICROALBUMIN/CREATI NINE RATIO, RANDOM UR Routine 07/01/2020 10:23 AM CDT Type 1 diabetes mellitus with hyperglycemia ([facility]) LIPID PANEL Routine 07/01/2020 10:21 AM CDT Type 1 diabetes mellitus with hyperglycemia ([facility]) Dyslipidemia Obesity peds (BMI >=95 percentile) POC HEMOGLOBIN A1C Routine 07/01/2020 9: 14 AM CDT Type 1 diabetes mellitus with hyperglycemia ([facility]) from Last 3 Months or Most Recently Relevant to Health Maintenance Results * MICROALBUMIN/CREATININE RATIO, RANDOM UR (07/01/2020 10:23 AM CDT) MICROALBUMIN, URINE <1.2 No Reference Range mg/dL 07/01/2020 12:50 PM CDT [facility] CREATININE, URINE 49.4 40.0 - 278.0 mg/dL 07/01/2020 12:50 PM T [facility] Comment:Reference Range vari es with fluid intake and diet. Urine URINE SPECIMEN OBTAINED BY CLEAN CATCH PROCEDURE / Unknown Collection / Unknown 07/01/2020 10:23 AM CDT 07/01/2020 10:23 AM CDT Narrative [facility] [place] - 07/01/2020 12:50 PM CDT Condition Microalbumin/Creat ratio Normal Males <17 Normal Females <25 Microalbuminuria Males 17-299 Microalbuminuria Females 25-299 Overt proteinuria >=300 Unable to calculate urine microalbumin/creatinine ratio because urine microalbumin result is outside of reportable range. us I Kevin Krishna MD URINE ORDERABLES Final Resul t [id number] [address] [place] [address] * (ABNORMAL) LIPID PANEL (07/01/2020 10:21 AM CDT) CHOLESTEROL 190 <200 mg/dL 07/01/2020 1:10 PM T [facility] [place] TRIGLYCERIDE 196(H) <150 mg/dL 07/01/2020 1:10 PM T [facility] [place] HDL 64(H) 40 - 59 mg/dL 07/01/2020 1:10 PM T [facility] [place] LDL CALCULATED 87 <100 mg/dL 07/01/2020 1:10 PM T [facility] [place] NON-HDL CHOLESTEROL 126 <130 mg/dL 07/01/2020 1:10 PM T [facility] [place] Blood Venipuncture / Unknown 07/01/2020 10:21 AM CDT 07/01/2020 10:21 AM CDT Narrative [facility] [place] - 07/01/2020 1:10 PM CDT TOTAL CHOLESTEROL mg/dL Desirable <200 Borderline high 200-239 High >=240 TRIGLYCERIDES mg/dL Normal <150 Borderline high 150-199 High 200-499 Very high >=500 HDL CHOLESTEROL mg/dL Low <40 Normal 40-59 Desirable >=60 NON HDL CHOLESTEROL mg/dL Optimal <130 Near Optimal 130-159 Borderline High 160-189 Very High >=190 CALCULATED LDL mg/dL LDL <70, OPTIMAL if have Atherosclerotic cardiovascular disease (ASCVD) or intermediate or higher (>7.5%) 10 year risk of ASCVD including most adults with diabetes. LDL <100, Optimal in adult patients with low (<7.5%) 10 year ASCVD risk LDL 100-160, Suboptimal LDL >160, High LDL >190, Very high ATPIII Guidelines Reference Ranges for Lipid Panels (NCEP/AMA) . us I Kevin Krishna MD CHEMISTRY ORDERABLES Final R esult [facility] [place] CLIA# [id number] [address] [place] [address] * (ABNORMAL) POC HEMOGLOBIN A1C (07/01/2020 9:14 AM CDT) HGB A1C POC 9.9(A) <=5.7 % [facility] [place] Blood, capillary 07/01/2020 9:14 AM CDT I Kevin Krishna MD POINT OF CARE TESTING Final Result [facility] [place] CLIA# [id number] [address] [place] [address] [address] [place] [address] from Last 3 Months or Most Recently Relevant to Health Maintenance Insurance [employer] Advance Directives For more information, please contact: [phone] Documents on File Type Date Recorded Patient Banquet Pilot Expl anation Advance Directive POA 09/06/2012 3:25 PM Advance Directive POA 09/06/2012 3:25 PM * Full Code (Latest Code Status on File) Date Activated Date Inactivated Comments 11/29/2018 6:32 PM 11/29/2018 7:37 PM * Full Code Date Activated Date Inactivated Comments 03/18/2015 8:18 PM 03/21/2015 3:57 PM * Full Code Date Activated Date Inactivated Comments 09/05/2012 12:26 AM 09/07/2012 3:50 PM Care Teams Assistant Broker Relationship Specialty Start Date End Date Poli Montemayor MD [address] [place] [address] PCP - General Family Practice 04/22/15
--- OUTSIDE RECORDS SUMMARY | 2024-08-28 15:16 | XMS_ITS | Clinical Summary ---
Author Organization [facility] Address [address] [place] [address] Phone Care Team Providers Care Dye Stand Loader Name Role Phone Poli Montemayor MD Primary Care Provider [phone] Allergies No known active allergies Medications insulin regular (HUMULIN R,NOVOLIN R) 100 unit/mL vial TO BE USED ON DAYS WITH MODERATE OR LARGE KEYTONES. CALL DOCTOR FOR DOSE. USE UP TO 40 UNITS. 10 mL 11 10/11/19 Active multivitamin (DAILY-DESHAWN) tabletIndications :Type 1 diabetes mellitus with hyperglycemia (CMS/HCC) Take 1 Tablet by mouth daily. 12/11/19 Active Blood-Glucose Sensor (Dexcom G6 Sensor) DeviceIndications :Type 1 diabetes mellitus with hyperglycemia (CMS/HCC) To be used for monitoring glucoses every 5 minutes, change sensor every 10 days. 3 Each 12/11/19 Active glucagon human recombinant (glucagon emergency) 1 mg Recon SolnIndications:T ype 1 diabetes mellitus with hyperglycemia (CMS/HCC) INJECT 1MG INTRAMUSCULARLY ONE TIME ONLY FOR 1 DOSE FOR HYPOGLYCEMIA WITH UNCONSCIOUSNESS OR CONVULSION. 2 Each 12/11/19 Active glucagon (Gvoke HypoPen 2-Pack) 1 mg/0.2 mL Auto-InjectorIndi cations:Type 1 diabetes mellitus with hyperglycemia (CMS/HCC) Inject 1 mg by subcutaneous injection one time as needed for Other (See Comment) (unconsciousness and/or seizures). 2 Syringe 12/11/19 Active Insulin [place], Disposable, 32 gauge x 5/32 NeedleIndications :Type 1 diabetes mellitus without complication (CMS/HCC),Vitamin D insufficiency,Obe sity peds (BMI >=95 percentile) USE FOR INSULIN INJECTIONS UP TO 10 TIMES DAILY. 300 Each 11 01/23/20 20 Active glucagon (Baqsimi) 3 mg/actuation [place], Non-AerosolIndica tions:Type 1 diabetes mellitus with hyperglycemia ([facility]/HCC) To be used for severe hypoglycemia that results in unconsciousness and/or seizures. 2 Each 12/11/19 20 Active insulin degludec (TRESIBA) 100 unit/mL pen syringe Up to 70 units daily. 30 mL 10/25/19 19 Active blood sugar diagnostic Strip TO BE USED TO TEST BLOOD SUGARS 8 TO 10 TIMES DAILY 300 Strip 3 10/25/19 19 Active metFORMIN (GLUCOPHAGE) 500 mg tablet Take 2 Tablets (1,000 mg) by mouth 2 times daily with meals. 360 Tablet 3 10/26/19 19 Active insulin lispro (HumaLOG U-100 Insulin) 100 unit/mL cartridge INJECT UP TO 100 UNITS DAILY PER LUXURA PEN. 90 mL 09/23/19 21 Active Dexcom G6 Transmitter DeviceIndications :Type 1 diabetes mellitus with hyperglycemia ([facility]/HCC) TO BE USED FOR T1DM. CHANGE TRANSMITTER EVERY 3 MONTHS. 1 Each 11/20/19 21 Active Ketone Blood Test (Precision Xtra B-Ketone) Strip TO BE USED WHEN BLOOD SUGAR IS GREATER THAN 240 OR WHEN FEELING ILL. 90 Strip PRN 09/15/19 17 Active blood sugar diagnostic (OneTouch Verio test strips) Strip USE TO CHECK BLOOD SUGARS 8-10 TIMES DAILY. 300 Strip 08/10/19 18 Active Cholecalciferol, Vitamin D3, 50 mcg (2,000 unit) CapsuleIndication s:Type I (juvenile type) diabetes mellitus without mention of complication, not stated as uncontrolled (CMS/[facility]),Vitamin D insufficiency Take 20,000 Units by mouth every Monday . 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 Gender Identity Not on file Sexual Orientation Not on file Last Filed Vital Signs Vital Sign Reading Time Taken Comments Blood Pressure 116/68 07/01/2020 9:13 AM CDT manual bp lg rt Pulse 82 07/01/2020 9:13 AM CDT Temperature 36.8 C (98.3 F) 11/30/2018 8:03 AM CDT Respiratory Rate 18 11/30/2018 8:03 AM CDT Oxygen Saturation - - Inhaled Oxygen Concentration - - Weight 88.1 [...] 2020 DIABETES HBA1C Q 6 MONTHS 01/01/20212020, 07/01/2020, 03/25/2020, Additional history exists DTAP/TDAP/TD VACCINES (2 - Tdap) 2021 09/26/19 08 HEPATITIS B VACCINES (1 of 3 - 19+ 3-dose series) 2021 DIABETES MICROALBUMIN ANNUAL SCREEN 07/01/2021 07/01/2020, 10/23/2019, 10/24/2018, Additional history exists LDL CHOLESTEROL ANNUAL 07/01/2021 1, 12/17/2019, 10/23/2019, Additional history exists INFLUENZA VACCINE (#1) 2024 0, 11/30/2018, 11/29/2017, Additional history exists Procedures Procedure Name Priority Date/Time Associated Diagnosis Comments MICROALBUMIN/CREATIN INE RATIO, RANDOM UR Routine 07/01/2020 10:23 AM CDT LIPID PANEL Routine 07/01/2020 10:21 AM CDT POC HEMOGLOBIN A1C Routine 07/01/2020 9: 14 AM CDT from Last 3 Months or Most Recently Relevant to Health Maintenance Results * MICROALBUMIN/CREATININE RATIO, RANDOM UR (07/01/2020 10:23 AM CDT) MICROALBUMIN, URINE <1.2 No Reference Range mg/dL 07/01/2020 12:50 PM CDT [facility] [place] CREATININE, URINE 49.4 40.0 - 278.0 mg/dL 07/01/2020 12:50 PM CDT [facility] [place] Comment:Reference Range vari es with fluid intake and diet. Urine URINE SPECIMEN OBTAINED BY CLEAN CATCH PROCEDURE / Unknown Collection / Unknown 07/01/2020 10:23 AM CDT 07/01/2020 12:21 PM CDT Narrative [facility] [place] - 07/01/2020 12:50 PM CDT Condition Microalbumin/Creat ratio Normal Males <17 Normal Females <25 Microalbuminuria Males 17-299 Microalbuminuria Females 25-299 Overt proteinuria >=300 Unable to calculate urine microalbumin/creatinine ratio because urine microalbumin result is outside of reportable range. us I Kevin Krishna MD URINE ORDERABLES Final Resul t [facility] [place] CLIA# [id number] [address] [place] [id number] [place] [address] [facility] [place] CLIA# [id number] [address] [place] [address] * (ABNORMAL) LIPID PANEL (07/01/2020 10:21 AM CDT) CHOLESTEROL 190 <200 mg/dL 07/01/2020 1:10 PM CDT [facility] [place] TRIGLYCERIDE 196(H) <150 mg/dL 07/01/2020 1:10 PM CDT [facility] [place] HDL 64(H) 40 - 59 mg/dL 07/01/2020 1:10 PM CDT [facility] [place] LDL CALCULATED 87 <100 mg/dL 07/01/2020 1:10 PM CDT [facility] [place] NON-HDL CHOLESTEROL 126 <130 mg/dL 07/01/2020 1:10 PM T [facility] [place] Blood Venipuncture / Unknown 07/01/2020 10:21 AM CDT 07/01/2020 12:24 PM CDT Narrative [facility] [place] - 07/01/2020 1:10 [...] Krishna MD CHEMISTRY ORDERABLES Final R esult Performing Organization Address [facility] Phone Number [facility] [place] CLIA# [id number] [address] [place] [address] [facility] [place] CLIA# [id number] [address] [place] [address] * (ABNORMAL) POC HEMOGLOBIN A1C (07/01/2020 9:14 AM CDT) HGB A1C POC 9.9(A) 5.7 % [facility] Blood, capillary 07/01/2020 9:14 AM CDT us I Kevin Krishna MD POINT OF CARE TESTING Final Result Performing Organization Address [facility] Phone Number [facility] CLIA# [id number] [address] [place] [address] [address] [place] [address] [facility] CLIA# [id number] [address] [place], [place] [address]E [address] [place] [address] from Last 3 Months or Most Recently Relevant to [place] [address] [facility] [id number] [facility] Address: [facility] [id number] [place] [address] Care Teams Dye Stand Loader Relationship Specialty Start Date End Date Poli Montemayor MD [address] [place] [address] PCP - General Family Practice 04/22/15
--- NOTE | 2024-08-28 16:10 | W.ED.RECABL ---
HPI - Recheck/Abnormal Lab/Rx General: Chief Complaint: Recheck/Abnormal Lab/Rx Stated Complaint: high BS, nausea Time Seen by Provider: 08/28/24 15:57 Source: patient Mode of arrival: ambulatory Limitations: no limitations History of Present Illness: 24-year-old male has a history of type 1 diabetes states that he had 1 episode of vomiting today. He states that he has not been as compliant with his insulin and has been out of his insulin pump. He states his blood sugars been in the 400s today and he is concerned about possibly going to DKA he denies any fevers denies any abdominal pain Related Data Home Medications ?Medication ?Instructions ?Recorded ?Confirmed cholecalciferol (vitamin D3) 125 10,000 unit PO Q7D 10/11/22 08/14/24 mcg (5,000 unit) tablet (Vitamin D3) glucagon HCl 1 mg solution for 1 mg SUBCUT Q20M PRN blood sugar 10/11/22 08/14/24 injection (Glucagon (HCl) Emergency Kit) multivitamin 1 tab PO QAM 10/11/22 08/14/24 Previous Rx's ?Medication ?Instructions ?Recorded pen needle, diabetic 32 gauge x #450 ea 05/10/21/ (Comfort EZ Pen [place]) insulin lispro 100 unit/mL See Rx Instructions .Route 04/17/24 subcutaneous pen .COMPLEX 30 days #30 mL blood-glucose transmitter (Dexcom #1 ea 04/22/24 G6 Transmitter device) blood-glucose sensor (Dexcom G6 #9 ea 05/17/24 Sensor device) insulin glargine 100 unit/mL (3 15 unit (0.15 mL) SUBCUT BID 1 05/17/24 mL) subcutaneous pen (Lantus month #9 mL Solostar U-100 Insulin) Allergies Allergy/AdvReac Type Severity Reaction Status Date / Time No Known Allergies Allergy Verified 08/28/24 15:22 Review of Systems Const: Denies: fever(s), chills, body aches or change in appetite ENMT: Denies: throat pain or dental pain Card: Denies: chest pain Resp: Denies: dyspnea GI: Reports: nausea and vomiting; Denies: abdominal pain or diarrhea : Denies: dysuria Musc: Denies: neck pain or back pain Skin/Breast: Denies: rash Neuro: Denies: headache(s) [facility] PFSH: Medical History DKA (diabetic ketoacidosis) Uncontrolled type 1 diabetes mellitus Surgical History No significant past surgical history Family History Father No problems noted. Mother No problems noted. Social History Smoking and tobacco/nicotine status: never used tobacco/nicotine Second hand smoke exposure: No Alcohol intake: never Substance/Drug Use: never Adopted: No Lives independently: No Household members: family Housing: House Marital status: Single Highest education level completed: High School Graduate Current occupational status: unemployed Current occupational exposures/hazards: No Physical Exam Const: COMMON NORMALS: no acute distress, patient oriented x3 and healthy appearing HENMT: COMMON NORMALS: normocephalic and atraumatic HEAD & SCALP: normocephalic and atraumatic Neck/C-Spine: COMMON NORMALS: full ROM and supple Chest: COMMONS NORMALS: normal inspection of the chest Resp: COMMON NORMALS: normal respiratory effort, No retractions, No use of accessory muscles and clear to auscultation bilaterally AUSCULTATION: clear to auscultation bilaterally Cardio: COMMON NORMALS: regular rhythm and No murmurs present (Cardio) RATE: tachycardic RHYTHM: regular rhythm GI: COMMON NORMALS: Normal to inspection, nondistended, normoactive bowel sounds present, Soft to palpation, non-tender and no masses PALPATION: Yes Soft to palpation Extremity: COMMON NORMALS: normal to inspection and full ROM Neuro: COMMON NORMALS: patient oriented x3, moves all extremities and no focal motor deficits Psych: COMMON NORMALS: mental status grossly normal, Normal thought process present and cooperative THOUGHT PROCESS: Normal thought process present Skin: COMMON NORMALS: no rashes or lesions noted and no wounds GENERAL SKIN EXAM: no rashes or lesions noted Course Vital Signs: Vital signs: Vital Signs Temperature 97.5 F L 08/28/24 15:13 Pulse Rate 130 H 08/28/24 15:13 Blood Pressure 145/97 08/28/24 15:13 Pulse Oximetry 98 08/28/24 15:13 Oxygen Delivery Me thod Room Air 08/28/24 15:13 MDM - Recheck/Abnormal Lab/Rx Medical Decision Making Patient presents here in DKA. Started IV fluids along with insulin drip spoke to hospitalist will admit ICU. No signs of infection Medical Records I reviewed the patient's medical records. Lab Data I reviewed the patient's lab results. 08/28/24 16:14 08/28/24 16:14 Radiology Impressions Chest X-Ray 08/28/24 16:11 IMPRESSION: No visualized acute cardiopulmonary process. Laboratory Results WBC 6.23 10^3/uL (3.29-11.43) 08/28/24 16:14 RBC 5.60 10^6/uL (3.85-5.65) 08/28/24 16:14 Hgb 16.30 g/dL (11.27-16.99) 08/28/24 16:14 Hct 50.3 % (37-53) 08/28/24 16:14 MCV 89.8 fl (82-101) 08/28/24 16:14 MCH 29.1 pg (27-33) 08/28/24 16:14 MCHC 32.4 g/dL (30-55) 08/28/24 16:14 RDW 12.5 % (12.1-15.1) 08/28/24 16:14 Plt Count 384 10^3/cmm (157-399) 08/28/24 16:14 MPV 9.4 fL (7.4-10.4) 08/28/24 16:14 Neut % (Auto) 49.0 % 08/28/24 16:14 Lymph % (Auto) 40.4 % 08/28/24 16:14 Carter % (Auto) 8.3 % 08/28/24 16:14 Eos % (Auto) 0.5 % 08/28/24 16:14 Baso % (Auto) 1.3 % 08/28/24 16:14 Neut # (Auto) 3.05 10^3/uL (1.8-7.7) 08/28/24 16:14 Lymph # (Auto) 2.5 10^3/uL (0.8-4.8) 08/28/24 16:14 Carter # (Auto) 0.5 10^3/uL (0.2-0.9) 08/28/24 16:14 Eos # (Auto) 0.0 10^3/uL (0.0-0.8) 08/28/24 16:14 Baso # (Auto) 0.1 10^3/uL (0.0-0.1) 08/28/24 16:14 Nucleated RBC % (auto) 0 % 08/28/24 16:14 Nucleated RBCs # 0.0 /100WBC 08/28/24 16:14 Specimen Type Arterial 08/28/24 16:13 Sample Site Radial, right 08/28/24 16:13 ABG pH 7.13 (7.35-7.45) L* 08/28/24 16:13 ABG pCO2 15.3 mmHg (35-45) L* 08/28/24 16:13 ABG pO2 122.0 mmHg (80.0-100.0) H 08/28/24 16:13 ABG PO2/FiO2 Ratio 580 08/28/24 16:13 ABG HCO3 5.1 mmol/L (22-26) L 08/28/24 16:13 ABG Base Excess -21.5 mmol/L (-2.0-2.0) L 08/28/24 16:13 Rob Test Pos 08/28/24 16:13 Hematocrit 51.8 % (42-52) 08/28/24 16:13 O2 Delivery Device Room air 08/28/24 16:13 FiO2 21.0 % 08/28/24 16:13 Retail Mortgage [employer] ID glc 08/28/24 16:13 Sodium 131 mmol/L (136-145) L 08/28/24 16:14 Potassium 5.6 mmol/L (3.5-5.1) H 08/28/24 16:14 Chloride 90 mmol/L (98-107) L 08/28/24 16:14 Carbon Dioxide 6 mmol/L (22-29) L* 08/28/24 16:14 Anion Gap 40.6 (5-19) H 08/28/24 16:14 BUN 10 mg/dL (6-20) 08/28/24 16:14 Creatinine 1.0 mg/dL (0.7-1.2) 08/28/24 16:14 GFR Calculation 93.4 mL/min (90-130) 08/28/24 16:14 Glucose 505 mg/dL (65-115) H* 08/28/24 16:14 POC Glucose 509 mg/dL (70-110) H* 08/28/24 17:20 Calculated Osmolality 294 mOsm/kg (285-295) 08/28/24 16:14 Calcium 9.3 mg/dL (8.5-10.5) 08/28/24 16:14 Phosphorus 4.7 mg/dL (2.5-4.5) H 08/28/24 16:14 Magnesium 2.1 mg/dL (1.7-2.3) 08/28/24 16:14 Total Bilirubin 0.6 mg/dL (0.15-1.2) 08/28/24 16:14 AST 20 U/L (0-40) 08/28/24 16:14 ALT 28 U/L (0-41) 08/28/24 16:14 Alkaline Phosphatase 196 U/L (40-130) H 08/28/24 16:14 Total Protein 8.1 g/dL (6.6-8.7) 08/28/24 16:14 Albumin 4.7 g/dL (3.5-5.2) 08/28/24 16:14 Globulin 3.4 g/dL (1.3-4.6) 08/28/24 16:14 Serum Ketones Positive (Negative) H 08/28/24 16:14 All radiology interpretation(s) finalized by discharge Critical Care Time Critical Care Time: Critical Care Time: Yes Total Critical Care Time: 40 Attestation: The high probability of a clinically significant, sudden or life threatening deterioration of the patient's endo system(s) required my full and direct attention, intervention and personal management. The critical care time is as shown. This time is in addition to time spent performing any reported procedures but includes the following: [x] Data and vital sign review and interpretation [x] Patient assessment, examination and intervention [x] Documentation [x] Medication orders and management Discharge Plan Discharge Patient Disposition: Admitted As Inpatient Clinical Impression: DKA (diabetic ketoacidosis) Condition: Stable Coding Level of Care Code ED Filleter for Tiny Geller
--- NOTE | 2024-08-28 16:11 | XRR_ITS ---
PROCEDURE INFORMATION: Exam: XR Chest Exam date and time: 08/28/2024 4:18 PM Age: 24 years old Clinical indication: Other: Hypertension; Additional info: HTN TECHNIQUE: Imaging protocol: Radiologic exam of the chest. Views: 1 view. COMPARISON: CR XR chest 1V portable [id number] 12/30/2023 8:44 PM FINDINGS: Lungs: Unremarkable. No consolidation. Pleural spaces: Unremarkable. No pleural effusion. No pneumothorax. Heart/Mediastinum: Unremarkable. No cardiomegaly. Bones/joints: Unremarkable. XR/XR chest 1V portable [id number] IMPRESSION: No visualized acute cardiopulmonary process.
[2024-08-28 16:24] LABS: Arterial Blood Gas Hematocrit 51.8 % (42-52); Blood Gas Allen Test Pos; Blood Gas Operator Identificat glc; Blood Gas Sample Site Radial, right; Blood Gas Sample Type Arterial; HCO3 ABG 5.1 mmol/L (22-26); PO2 ABG 122.0 mmHg (80.0-100.0); PO2 FiO2 Ratio Arterial Blood 580
[2024-08-28 16:27] LABS: Hematocrit 50.3 % (37-53); Hemoglobin 16.30 g/dL (11.27-16.99); Mean Corpuscular HGB Conc 32.4 g/dL (30-55); Mean Corpuscular Hemoglobin 29.1 pg (27-33); Mean Corpuscular Volume 89.8 fl (82-101); Nucleated Red Blood Cells % 0 %; Platelet Count 384 10^3/cmm (157-399); Red Blood Count 5.60 10^6/uL (3.85-5.65); White Blood Count 6.23 10^3/uL (3.29-11.43)
[2024-08-28 16:35] LABS: ABG PCO2 15.3 mmHg (35-45); ABG PH Result 7.13 (7.35-7.45)
[2024-08-28 16:37] LABS: Ketone (Acetest) Serum Positive (Negative)
[2024-08-28 16:41] LABS: Alanine Aminotransferase 28 U/L (0-41); Albumin Level 4.7 g/dL (3.5-5.2); Alkaline Phosphatase 196 U/L (40-130); Anion Gap 40.6 (5-19); Aspartate Amino Transferase 20 U/L (0-40); Blood Urea Nitrogen 10 mg/dL (6-20); Calcium 9.3 mg/dL (8.5-10.5); Chloride 90 mmol/L (98-107); Creatinine Clr Calc Pharmacy 80.2859; Globulin 3.4 g/dL (1.3-4.6); Osmolality Calculated 294 mOsm/kg (285-295); Potassium 5.6 mmol/L (3.5-5.1); Sodium 131 mmol/L (136-145); Total Protein 8.1 g/dL (6.6-8.7)
[2024-08-28 16:47] LABS: Carbon Dioxide 6 mmol/L (22-29); Glucose 505 mg/dL (65-115)
[2024-08-28 16:54] LABS: Magnesium 2.1 mg/dL (1.7-2.3)
[2024-08-28] MEDS: INSULIN REGULAR IN 0.9 % NACL 100 UNIT/100 ML BAG 9.5 UNIT IV (17:03)
--- NOTE | 2024-08-28 17:52 | PM.HP ---
Providers/Chief Complaint Admitting Physician: Demario Guerin MD Primary Care Provider: Ryanne Kimball MD Chief Complaint: high BS, nausea History of Present Illness Darrel Mcduffie is a 24 year old male with a past medical history of type 1 diabetes mellitus, he tells me that there has been issues with his Dexcom, then he there is been issues with the supplies for his insulin pump, the cost has gone up and he has had a affordability issues, he has been giving himself insulin, he tells me recently last few days his blood sugars been trending upwards into the 400s, reports nausea, vomiting, no abdominal pain, no new rashes, no history of diabetic ulcers, no fevers, no chills, no cough no dysuria, no flank pain, no chest pain Review of Systems Const: Denies: fever(s), chills, fatigue or malaise Card: Denies: chest pain Resp: Denies: dyspnea GI: Denies: abdominal pain : Denies: flank pain or difficulty urinating Skin/Breast: Denies: rash Neuro: Denies: headache(s) or dizziness Endo: Reports: polyuria and polydipsia Medications/Allergies Home Medications ?Medication ?Instructions ?Recorded ?Confirmed ?Last Taken ?Type pen needle, diabetic 32 gauge x #450 ea 05/10/21 08/14/24 Unknown Rx (Comfort EZ Pen [place]) cholecalciferol (vitamin D3) 125 10,000 unit PO Q7D 10/11/22 08/14/24 12/30/23 History mcg (5,000 unit) tablet (Vitamin D3) glucagon HCl 1 mg solution for 1 mg SUBCUT Q20M PRN blood sugar 10/11/22 08/14/24 Unknown History injection (Glucagon (HCl) Emergency Kit) multivitamin 1 tab PO QAM 10/11/22 08/14/24 12/29/23 History insulin lispro 100 unit/mL See Rx Instructions .Route 04/17/24 08/14/24 Unknown Rx subcutaneous pen .COMPLEX 30 days #30 mL blood-glucose transmitter (Dexcom #1 ea 04/22/24 08/14/24 Unknown Rx G6 Transmitter device) blood-glucose sensor (Dexcom G6 #9 ea 05/17/24 08/14/24 Unknown Rx Sensor device) insulin glargine 100 unit/mL (3 15 unit (0.15 mL) SUBCUT BID 1 05/17/24 08/14/24 Unknown Rx mL) subcutaneous pen (Lantus month #9 mL Solostar U-100 Insulin) Allergies Allergy/AdvReac Type Severity Reaction Status Date / Time No Known Allergies Allergy Verified 08/28/24 15:22 PFSH Acute PFSH: Medical History DKA (diabetic ketoacidosis) Uncontrolled type 1 diabetes mellitus Surgical History No significant past surgical history Family History Father No problems noted. Mother No problems noted. Social History Smoking and tobacco/nicotine status: never used tobacco/nicotine Second hand smoke exposure: No Alcohol intake: never Substance/Drug Use: never Adopted: No Lives independently: No Household members: family Housing: House Marital status: Single Highest education level completed: High School Graduate Current occupational status: unemployed Current occupational exposures/hazards: No Vitals/I&O/Wt Last Vital Signs Temp 97.5 F L 08/28/24 15:13 Pulse 130 H 08/28/24 15:13 BP 145/97 08/28/24 15:13 Pulse Ox 98 08/28/24 15:13 O2 Del Method Room Air 08/28/24 15:13 Weight last 48 hrs Weight 94.347 kg Weight 48.988 kg Physical Exam Const: COMMON NORMALS: no acute distress and patient oriented x3 Eye: COMMON NORMALS: Equal, round and reactive pupils present and EOMs intact bilaterally Resp: COMMON NORMALS: normal respiratory effort, No retractions, No use of accessory muscles and clear to auscultation bilaterally EFFORT & INSPECTION: Yes abnormal respiratory pattern Kussmaul breathing AUSCULTATION: clear to auscultation bilaterally Cardio: COMMON NORMALS: regular rate, regular rhythm, S1 normal heart sound present and S2 normal heart sound present RATE: tachycardic RHYTHM: regular rhythm HEART SOUNDS: S1 normal heart sound present and S2 normal heart sound present GI: COMMON NORMALS: Normal to inspection, nondistended, normoactive bowel sounds present, Soft to palpation and non-tender Extremity: COMMON NORMALS: no pedal edema Neuro: COMMON NORMALS: patient oriented x3, CN's II-XII intact bilaterally and moves all extremities Psych: COMMON NORMALS: mental status grossly normal Data 08/28/24 16:14 08/28/24 16:14 A&P Assessment and plan 1. DKA (diabetic ketoacidosis): Plan: Diabetic ketoacidosis Plan - DKA protocol - Admit to the ICU - Blood sugar hourly - N.p.o. - Normal saline with 20 KCl at 150 cc an hour - Once blood sugar falls below 200 switch to D5 half-normal saline with 20 KCl - Maintain potassium greater than 4.5 - Monitor BMP every 4 hours - Lactic acid, UA, inflammatory markers pending - Full code - Lovenox for DVT prophylaxis PDMP PDMP Reviewed: Not Reviewed Attestations Medical Necessity Statement*: Patient requires hospitalization, inpatient, greater than 2 midnights for diabetic ketoacidosis Coding Level of Care Code Critical Care >/= 30 minutes Critical care time (in minutes): 35 The high probability of a clinically significant, sudden or life threatening deterioration, as referenced in this documentation, required my full and direct attention, intervention and personal management. The critical care time shown is in addition to time spent performing any reported separately billable procedures and includes the following: [x] Data and vital sign review and interpretation [x] Patient assessment, examination and intervention [x] Medication orders and management [x] Patient/Family updates as able [x] Care Coordination and Documentation. Diagnoses DKA (diabetic ketoacidosis) E11.10
[2024-08-28 18:04] LABS: Lactic Sepsis W/Reflex 1.8 mmol/L (0.5-2.2)
[2024-08-28 18:11] LABS: Procalcitonin 0.14 ng/mL (0-0.5)
[2024-08-28] MEDS: sodium chlor 0.9% + KCl 20 mEq 20 MEQ/1,000 ML BAG 150 MEQ IV (19:18)
[2024-08-28 20:04] LABS: Glucose Urine UA 1+ (Normal); Nitrate Urine Negative (Negative); Specific Gravity, Urine 1.030 (1.005-1.030)
[2024-08-28 20:06] LABS: Add Urine Microscopic? YES
[2024-08-28] MEDS: dextrose 5%-sod chloride 0.9% 1,000 ML 150 ML IV (20:37)
[2024-08-28] MEDS: pantoprazole 40 mg SDV IVP (20:43)
[2024-08-28 20:59] LABS: Anion Gap 32.1 (5-19); Blood Urea Nitrogen 10 mg/dL (6-20); Calcium 9.8 mg/dL (8.5-10.5); Carbon Dioxide 11 mmol/L (22-29); Chloride 101 mmol/L (98-107); Cholesterol 193 mg/dL (0-200); Creatinine Clr Calc Pharmacy 103.0042; Glucose 154 mg/dL (65-115); HDL Cholesterol 43 mg/dL (60-100); Osmolality Calculated 290 mOsm/kg (285-295); Potassium 5.1 mmol/L (3.5-5.1); Sodium 139 mmol/L (136-145); Thyroid Stimulating Hormone 0.64 uIU/mL (0.27-4.20); Triglycerides 390 mg/dL (0-150)
[2024-08-29] VITALS (55 sets, daily range): BP systolic 96–134; BP diastolic 51–96; PULSE 81–131; RESP 12–31; TEMP 36.4–37.1; O2SAT 94–100; BMI 27.3
[2024-08-29] LABS: Estmated Average Glucose 275; Hemoglobin A1C 11.2 % (4.0-6.0)
[2024-08-29 00:51] LABS: Anion Gap 31.1 (5-19); Blood Urea Nitrogen 9 mg/dL (6-20); Calcium 9.0 mg/dL (8.5-10.5); Carbon Dioxide 10 mmol/L (22-29); Chloride 99 mmol/L (98-107); Creatinine Clr Calc Pharmacy 103.0042; Glucose 247 mg/dL (65-115); Osmolality Calculated 287 mOsm/kg (285-295); Potassium 5.1 mmol/L (3.5-5.1); Sodium 135 mmol/L (136-145)
--- NOTE | 2024-08-29 01:16 | PC.NURSE ---
Dextrose fluids: Patient's blood sugar was 160, dextrose fluids required per insulin gtt protocol. Dr. Dominguez gave telephone orders to pause NS with 20meq K and begin D5 NS at 150mL/hr.
[2024-08-29] MEDS: dextrose 5%-sod chloride 0.9% 1,000 ML 150 ML IV ×3 (03:07→17:09)
[2024-08-29 04:34] LABS: Anion Gap 25.3 (5-19); Blood Urea Nitrogen 8 mg/dL (6-20); Calcium 8.8 mg/dL (8.5-10.5); Carbon Dioxide 13 mmol/L (22-29); Chloride 103 mmol/L (98-107); Creatinine Clr Calc Pharmacy 123.6050; Glucose 215 mg/dL (65-115); Osmolality Calculated 289 mOsm/kg (285-295); Potassium 4.3 mmol/L (3.5-5.1); Sodium 137 mmol/L (136-145)
--- NOTE | 2024-08-29 08:14 | PC.NURSE ---
Insulin gtt: Blood sugars decreased from 201 to 196 mg/dl. PEr protocol reuquires insulin gtt to decreased by 6 units/hr. Inulin gtt was at 2units/ hr, decreased to 1 unit/hr.
[2024-08-29 08:31] LABS: Anion Gap 20.8 (5-19); Blood Urea Nitrogen 7 mg/dL (6-20); Calcium 8.7 mg/dL (8.5-10.5); Carbon Dioxide 15 mmol/L (22-29); Chloride 106 mmol/L (98-107); Creatinine Clr Calc Pharmacy 138.4315; Glucose 215 mg/dL (65-115); Osmolality Calculated 290 mOsm/kg (285-295); Potassium 3.8 mmol/L (3.5-5.1); Sodium 138 mmol/L (136-145)
--- NOTE | 2024-08-29 10:28 | P.PN_ITS ---
Subjective 2 Subjective: Patient was seen this morning, currently alert oriented x 3, following all commands, no nausea, no vomiting no abdominal pain, blood sugars are down to 200s, anion gap 20.8, bicarb 15 discussed continue insulin drip, until anion gap is 14-15, will give him a bolus of normal saline continue to monitor he is in agreement, he tells me that for his insulin pump he has the insulin for it, he also has the tubing ordered for it and it should be delivered soon, he has enough insulin and Lantus at home, Vitals/I&O/Wt Last Vital Signs Temp 97.6 F 08/29/24 00:30 Pulse 105 H 08/29/24 05:40 Resp 19 H 08/29/24 05:15 BP 119/70 08/29/24 05:15 Pulse Ox 95 08/29/24 05:15 O2 Del Method Room Air 08/29/24 05:15 08/28/24 08/29/24 08/29/24 22:59 06:59 14:59 Intake Total 1230.233 / 1536.348 3087.934 / 2243.167 1006.15 / 1006.15 Balance 1230.233 / 7326.343 9700.934 / 2243.167 1006.15 / 1006.15 Weight last 48 hrs Weight 84 kg Weight 82.5 kg Weight 94.347 kg Weight 48.988 kg Physical Exam 2 Const: COMMON NORMALS: no acute distress and patient oriented x3 Resp: COMMON NORMALS: normal respiratory effort, No retractions, No use of accessory muscles and clear to auscultation bilaterally AUSCULTATION: clear to auscultation bilaterally Cardio: COMMON NORMALS: regular rate, regular rhythm, S1 normal heart sound present and S2 normal heart sound present RATE: regular rate RHYTHM: r egular rhythm HEART SOUNDS: S1 normal heart sound present and S2 normal heart sound present GI: COMMON NORMALS: Normal to inspection, nondistended, normoactive bowel sounds present and non-tender Extremity: COMMON NORMALS: no pedal edema Neuro: COMMON NORMALS: patient oriented x3 Psych: COMMON NORMALS: mental status grossly normal Data 08/28/24 16:14 08/29/24 08:04 A&P Assessment and plan 1. DKA (diabetic ketoacidosis): Plan: Diabetic ketoacidosis Plan - DKA protocol - Admit to the ICU - Blood sugar hourly - N.p.o. - Normal saline with 20 KCl at 150 cc an hour - Once blood sugar falls below 200 switch to D5 half-normal saline with 20 KCl - Maintain potassium greater than 4.5 - Monitor BMP every 4 hours - Full code - Lovenox for DVT prophylaxis PDMP PDMP Reviewed: Not Reviewed Attestations 2 Medical Necessity Statement*: patient requires hospitalization for DKA Coding Level of Care Code Critical Care >/= 30 minutes Critical care time (in minutes): 35 The high probability of a clinically significant, sudden or life threatening deterioration, as referenced in this documentation, required my full and direct attention, intervention and personal management. The critical care time shown is in addition to time spent performing any reported separately billable procedures and includes the following: [x] Data and vital sign review and interpretation [x ] Patient assessment, examination and intervention [x] Medication orders and management [x] Patient/Family updates as able [x] Care Coordination and Documentation. Diagnoses DKA (diabetic ketoacidosis) E11.10
[2024-08-29 12:43] LABS: Anion Gap 19.0 (5-19); Blood Urea Nitrogen 7 mg/dL (6-20); Calcium 8.2 mg/dL (8.5-10.5); Carbon Dioxide 14 mmol/L (22-29); Chloride 108 mmol/L (98-107); Creatinine Clr Calc Pharmacy 177.9833; Glucose 242 mg/dL (65-115); Osmolality Calculated 290 mOsm/kg (285-295); Potassium 4.0 mmol/L (3.5-5.1); Sodium 137 mmol/L (136-145)
[2024-08-29 16:13] LABS: Anion Gap 16.7 (5-19); Blood Urea Nitrogen 5 mg/dL (6-20); Calcium 8.6 mg/dL (8.5-10.5); Carbon Dioxide 17 mmol/L (22-29); Chloride 109 mmol/L (98-107); Creatinine Clr Calc Pharmacy 177.9833; Glucose 187 mg/dL (65-115); Osmolality Calculated 290 mOsm/kg (285-295); Potassium 3.7 mmol/L (3.5-5.1); Sodium 139 mmol/L (136-145)
[2024-08-29 18:33] LABS: Anion Gap 16.9 (5-19); Blood Urea Nitrogen 5 mg/dL (6-20); Calcium 8.3 mg/dL (8.5-10.5); Carbon Dioxide 16 mmol/L (22-29); Chloride 112 mmol/L (98-107); Creatinine Clr Calc Pharmacy 207.6472; Glucose 181 mg/dL (65-115); Osmolality Calculated 294 mOsm/kg (285-295); Potassium 3.9 mmol/L (3.5-5.1); Sodium 141 mmol/L (136-145)
--- NOTE | 2024-08-29 18:35 | PC.NURSE ---
Shift summary: Pt has rested in the bed throughout the shift. He denies pain, nausea and vomiting. D5NS still infusing. He received 1 liter bolus of NS today Insulin gtt still infusing at 1 u/hr. His last anion gap was 16.7. Lab were just drawn, not resulted yet. Per Dr Guerin the anion gap needs to be 14-15. Pt was incontinent of a large amount urine this am. He was provided with bath wipes to bath. Linen change provided.
[2024-08-29] MEDS: pantoprazole 40 mg SDV IVP (19:31)
[2024-08-29 22:33] LABS: Anion Gap 15.9 (5-19); Blood Urea Nitrogen 4 mg/dL (6-20); Calcium 8.6 mg/dL (8.5-10.5); Carbon Dioxide 19 mmol/L (22-29); Chloride 107 mmol/L (98-107); Creatinine Clr Calc Pharmacy 177.9833; Glucose 234 mg/dL (65-115); Osmolality Calculated 290 mOsm/kg (285-295); Potassium 3.9 mmol/L (3.5-5.1); Sodium 138 mmol/L (136-145)
[2024-08-29 22:34] LABS: Magnesium 1.7 mg/dL (1.7-2.3)
--- NOTE | 2024-08-29 23:00 | PC.NURSE ---
Insulin Transition Dr. Noriega notified of patient's latest BMP results. Orders to be placed by physician for transition to subq insulin orders.
[2024-08-29] MEDS: insulin glargine 100 units/1 mL 20 UNIT SUBCUT (23:17)
[2024-08-30] VITALS (25 sets, daily range): BP systolic 110–128; BP diastolic 59–100; PULSE 72–102; RESP 12–21; TEMP 36.6–37.1; O2SAT 95–100
--- NOTE | 2024-08-30 01:30 | PC.NURSE ---
Insulin gtt turned off at 0120.
[2024-08-30 02:21] LABS: Anion Gap 16.8 (5-19); Blood Urea Nitrogen 4 mg/dL (6-20); Calcium 8.6 mg/dL (8.5-10.5); Carbon Dioxide 18 mmol/L (22-29); Chloride 106 mmol/L (98-107); Creatinine Clr Calc Pharmacy 177.9833; Glucose 252 mg/dL (65-115); Osmolality Calculated 289 mOsm/kg (285-295); Potassium 3.8 mmol/L (3.5-5.1); Sodium 137 mmol/L (136-145)
[2024-08-30 06:54] LABS: Anion Gap 15.0 (5-19); Blood Urea Nitrogen 3 mg/dL (6-20); Calcium 8.5 mg/dL (8.5-10.5); Carbon Dioxide 21 mmol/L (22-29); Chloride 103 mmol/L (98-107); Creatinine Clr Calc Pharmacy 180.7929; Glucose 236 mg/dL (65-115); Osmolality Calculated 284 mOsm/kg (285-295); Potassium 4.0 mmol/L (3.5-5.1); Sodium 135 mmol/L (136-145)
--- NOTE | 2024-08-30 10:43 | PM.DCS ---
Discharge Providers Date of Admission: 08/28/24 17:45 Date of Discharge: August 30, 2024 Attending Provider at Admission: Demario Guerin MD Attending Provider at Discharge: Demario Guerin MD Primary Care Provider: Ryanne Kimball MD Diagnoses at Discharge Discharge Diagnosis 1. DKA (diabetic ketoacidosis): Reason for Visit Reason for Visit: high BS, nausea Hospital Course Hospital Course Darrel Mcduffie is a 24 year old male with a past medical history of type 1 diabetes mellitus, he tells me that there has been issues with his Dexcom, then he there is been issues with the supplies for his insulin pump, the cost has gone up and he has had a affordability issues, he has been giving himself insulin, he tells me recently last few days his blood sugars been trending upwards into the 400s, reports nausea, vomiting, no abdominal pain, no new rashes, no history of diabetic ulcers, no fevers, no chills, no cough no dysuria, no flank pain, no chest pain Patient was admitted to [facility] for diabetic ketoacidosis, monitored in ICU, monitored on insulin drip, overall clinically improved, anion gap closed, transition to subcut insulin with Lantus In terms of his type 1 diabetes, patient's insulin pump tubing is to be delivered today -Patient reports he has all other supplies, including insulin - Plan is if his insulin pump tubing is delivered today, he can start it as soon as he gets home, and stop Lantus and subcu insulin - If it is not delivered until tomorrow, continue subcu insulin 3 times daily with meals, give himself Lantus 25 units at bedtime, and start insulin pump tomorrow once delivered Physical Exam Const: COMMON NORMALS: no acute distress and patient oriented x3 Resp: COMMON NORMALS: normal respiratory effort, No retractions, No use of accessory muscles and clear to auscultation bilaterally AUSCULTATION: clear to auscultation bilaterally Cardio: COMMON NORMALS: regular rate, regular rhythm, S1 normal heart sound present and S2 normal heart sound present RATE: regular rate RHYTHM: regular rhythm HEART SOUNDS: S1 normal heart sound present and S2 normal heart sound present GI: COMMON NORMALS: Normal to inspection, nondistended, normoactive bowel sounds present and non-tender Extremity: COMMON NORMALS: no pedal edema Neuro: COMMON NORMALS: patient oriented x3 Psych: COMMON NORMALS: mental status grossly normal Discharge Data Studies Completed and Pending Completed Studies During Hospitalization Category Date Time Status CXRP [XR chest 1V portable [id number]] Stat Exams 08/28/24 16:11 Completed Radiology Impressions Chest X-Ray 08/28/24 16:11 IMPRESSION: No visualized acute cardiopulmonary process. Laboratory Results WBC 6.23 10^3/uL (3.29-11.43) 08/28/24 16:14 RBC 5.60 10^6/uL (3.85-5.65) 08/28/24 16:14 Hgb 16.30 g/dL (11.27-16.99) 08/28/24 16:14 Hct 50.3 % (37-53) 08/28/24 16:14 MCV 89.8 fl (82-101) 08/28/24 16:14 MCH 29.1 pg (27-33) 08/28/24 16:14 MCHC 32.4 g/dL (30-55) 08/28/24 16:14 RDW 12.5 % (12.1-15.1) 08/28/24 16:14 Plt Count 384 10^3/cmm (157-399) 08/28/24 16:14 MPV 9.4 fL (7.4-10.4) 08/28/24 16:14 Neut % (Auto) 49.0 % 08/28/24 16:14 Lymph % (Auto) 40.4 % 08/28/24 16:14 [place] % (Auto) 8.3 % 08/28/24 16:14 Eos % (Auto) 0.5 % 08/28/24 16:14 Baso % (Auto) 1.3 % 08/28/24 16:14 Neut # (Auto) 3.05 10^3/uL (1.8-7.7) 08/28/24 16:14 Lymph # (Auto) 2.5 10^3/uL (0.8-4.8) 08/28/24 16:14 [place] # (Auto) 0.5 10^3/uL (0.2-0.9) 08/28/24 16:14 Eos # (Auto) 0.0 10^3/uL (0.0-0.8) 08/28/24 16:14 Baso # (Auto) 0.1 10^3/uL (0.0-0.1) 08/28/24 16:14 Nucleated RBC % (auto) 0 % 08/28/24 16:14 Nucleated RBCs # 0.0 /100WBC 08/28/24 16:14 Specimen Type Arterial 08/28/24 16:13 Sample Site Radial, right 08/28/24 16:13 ABG pH 7.13 (7.35-7.45) L* 08/28/24 16:13 ABG pCO2 15.3 mmHg (35-45) L* 08/28/24 16:13 ABG pO2 122.0 mmHg (80.0-100.0) H 08/28/24 16:13 ABG PO2/FiO2 Ratio 580 08/28/24 16:13 ABG HCO3 5.1 mmol/L (22-26) L 08/28/24 16:13 ABG Base Excess -21.5 mmol/L (-2.0-2.0) L 08/28/24 16:13 Rob Test Pos 08/28/24 16:13 Hematocrit 51.8 % (42-52) 08/28/24 16:13 O2 Delivery Device Room air 08/28/24 16:13 FiO2 21.0 % 08/28/24 16:13 Cable Braider ID glc 08/28/24 16:13 Sodium 135 mmol/L (136-145) L 08/30/24 06:13 Potassium 4.0 mmol/L (3.5-5.1) 08/30/24 06:13 Chloride 103 mmol/L (98-107) 08/30/24 06:13 Carbon Dioxide 21 mmol/L (22-29) L 08/30/24 06:13 Anion Gap 15.0 (5-19) 08/30/24 06:13 BUN 3 mg/dL (6-20) L 08/30/24 06:13 Creatinine 0.7 mg/dL (0.7-1.2) 08/30/24 06:13 GFR Calculation 141.0 mL/min (90-130) H 08/30/24 06:13 Glucose 236 mg/dL (65-115) H 08/30/24 06:13 POC Glucose 223 mg/dL (70-110) H 08/30/24 08:00 Estimat Average Glucose 275 08/28/24 16:14 Hemoglobin A1c 11.2 % (4.0-6.0) H 08/28/24 16:14 Calculated Osmolality 284 mOsm/kg (285-295) L 08/30/24 06:13 Lactic Acid 1.8 mmol/L (0.5-2.2) 08/28/24 16:14 Calcium 8.5 mg/dL (8.5-10.5) 08/30/24 06:13 Phosphorus 2.1 mg/dL (2.5-4.5) L 08/29/24 22:06 Magnesium 1.7 mg/dL (1.7-2.3) 08/29/24 22:06 Total Bilirubin 0.6 mg/dL (0.15-1.2) 08/28/24 16:14 AST 20 U/L (0-40) 08/28/24 16:14 ALT 28 U/L (0-41) 08/28/24 16:14 Alkaline Phosphatase 196 U/L (40-130) H 08/28/24 16:14 C-Reactive Protein 8.5 mg/L (0.0-4.9) H 08/28/24 17:40 Total Protein 8.1 g/dL (6.6-8.7) 08/28/24 16:14 Albumin 4.7 g/dL (3.5-5.2) 08/28/24 16:14 Globulin 3.4 g/dL (1.3-4.6) 08/28/24 16:14 Triglycerides 390 mg/dL (0-150) H 08/28/24 20:15 Cholesterol 193 mg/dL (0-200) 08/28/24 20:15 LDL Cholesterol, Calc 72 mg/dL (50-129) 08/28/24 20:15 HDL Cholesterol 43 mg/dL (60-100) L 08/28/24 20:15 LDL/HDL Ratio 1.67 RATIO (0.00-3.22) 08/28/24 20:15 Cholesterol/HDL Ratio 4.49 mg/dL (1.0-5.00) 08/28/24 20:15 Procalcitonin 0.14 ng/mL (0-0.5) 08/28/24 17:40 TSH 0.64 uIU/mL (0.27-4.20) 08/28/24 20:15 Urine Color Yellow (Yellow) 08/28/24 19:51 Urine Appearance Clear (CLEAR) 08/28/24 19:51 Urine pH 5.0 (5-7) 08/28/24 19:51 Ur Specific [place] 1.030 (1.005-1.030) 08/28/24 19:51 Urine Protein Trace (Negative) A 08/28/24 19:51 Urine Glucose (UA) 1+ (Normal) H 08/28/24 19:51 Urine Ketones 4+ (Negative) 08/28/24 19:51 Urine Blood Negative (Negative) 08/28/24 19:51 Urine Nitrate Negative (Negative) 08/28/24 19:51 Urine Bilirubin Negative (Negative) 08/28/24 19:51 Urine Urobilinogen 0.2 mg/dL (Negative) 08/28/24 19:51 Ur Leukocyte Esterase Negative (Negative) 08/28/24 19:51 Urine RBC 0-2 /hpf (0-2) 08/28/24 19:51 Urine WBC 0-5 /hpf (0-5) 08/28/24 19:51 Ur Squamous Epith Cells 0-5 /hpf (0-5) 08/28/24 19:51 Amorphous Sediment Not Reportable 08/28/24 19:51 Urine Bacteria None seen /hpf (NONE) 08/28/24 19:51 Hyaline Casts 7.42 /lpf 08/28/24 19:51 Serum Ketones Positive (Negative) H 08/28/24 16:14 Vitals Last Vital Signs Temp 98.1 F 08/30/24 04:00 Pulse 72 08/30/24 06:30 Resp 18 08/30/24 06:30 BP 110/68 08/30/24 06:30 Pulse Ox 96 08/30/24 06:30 O2 Del Method Room Air 08/30/24 06:30 Discharge Plan Discharge Patient Disposition: Home Condition: Stable Prescriptions: New insulin glargine [Lantus U-100 Insulin] 100 unit/mL Solution 25 unit SUBCUT BEDTIME Qty: 10 0RF Continued insulin lispro 100 unit/mL insulin pen See Rx Instructions .ROUTE .COMPLEX 30 Days Qty: 30 3RF Dose Instruction: INJECT SUBCUTANEOUSLY 3 TIMES DAILY PER SLIDING SCALE, DEPENDING ON CARBS AND BLOOD SUGAR. MAX DAILY DOSE OF 71 UNITS Rx Instructions: INJECT SUBCUTANEOUSLY 3 TIMES DAILY PER SLIDING SCALE, DEPENDING ON CARBS AND BLOOD SUGAR. MAX DAILY DOSE OF 71 UNITS multivitamin Tablet 1 tab PO QAM cholecalciferol (vitamin D3) [Vitamin D3] 125 mcg (5,000 unit) Tablet 10,000 unit PO Q7D Rx Instructions: on sat glucagon HCl [Glucagon (HCl) Emergency Kit] 1 mg Recon Soln 1 mg SUBCUT Q20M PRN (Reason: blood sugar) Rx Instructions: until target blood sugar attained No Action (DME) Dexcom G6 Sensor Device See Rx Instructions .ROUTE .COMPLEX Qty: 9 0RF Dose Instruction: CHANGE SENSOR EVERY 10 DAYS Rx Instructions: CHANGE SENSOR EVERY 10 DAYS (DME) pen needle, diabetic [Comfort EZ Pen [place]] 32 gauge x 5/32 needle See Rx Instructions .Route Qty: 450 3RF Rx Instructions: Use with insulin shots 5 times a day. (DME) Dexcom G6 Transmitter Device See Rx Instructions .ROUTE .COMPLEX Qty: 1 0RF Dose Instruction: USE DIRECTED CHANGE EVERY 3 MONTHS Rx Instructions: USE DIRECTED CHANGE EVERY 3 MONTHS Referrals: Ryanne Kimball MD [Primary Care Provider, Family Practice] Patient Instructions: Opioid Safety, Patient Portal & [facility] Instructions Activity Restrictions/Additional Instructions: - If your insulin pump tubing is delivered please start today - If it is not delivered - Take Lantus 25 units at bedtime - Continue insulin sliding scale, subcut, 3 times daily, after meals, -If it is delivered tomorrow, start insulin pump soon as tubing is delivered, and stop taking Lantus and insulin sliding scale - Please follow with Dr. Potts in 1 week - Monitor closely for hypoglycemia -Please monitor your blood sugars closely -Monitor your blood sugars 3 times daily as after meals -Please record your blood sugars, and a blood sugar log -If your blood sugar is greater than 500 go to the emergency room -If your blood sugar is less than 60 or at anytime you feel lightheaded or dizzy or diaphoretic or have chest palpitations check your blood sugar, and eat a hard candy or drink orange juice and go immediately to the emergency room -Remember hypoglycemia kills, so if his blood sugar is less than 60 we have to increase it by taking in a sugary meal such as a hard candy or orange juice and go to the emergency room -If you have any questions please call us where here to help Discharge Attestations Time Spent in Discharge Care*: greater than 30 min Quality Metrics Clinical Quality Measures [ No reported AMI, CVA or VTE this stay] Coding Level of Care Code 67424 Total time (in minutes) for Discharge: 45 Diagnoses DKA (diabetic ketoacidosis) E11.10
--- NOTE | 2024-08-30 13:16 | PC.NURSE ---
Discahrge instructions provided and reviewed with pt. Questions answered. Pt verbalized understanding. Pt discharged
== END 2024-08-30 13:15 | disposition home or self-care (01) | DRG 639 ==
LOC: ER 17:26 → ICU 17:46
PROVIDERS: Admitting Provider Family Medicine; Emergency Provider Emergency Medicine; PCP Family Medicine; Visit Provider Family Medicine
DX: E10.10 Type 1 diabetes mellitus with ketoacidosis without coma (principal); Z96.41 Presence of insulin pump (external) (internal); T38.3X6A Underdosing of insulin and oral hypoglycemic [antidiabetic] drugs, initial encounter; Z91.128 Patient's intentional underdosing of medication regimen for other reason; Z79.4 Long term (current) use of insulin
CPT/HCPCS: 36415; 36416; 36600; 71045; 80048; 80053; 80061; 81001; 82009; 82803; 82962; 83036; 83605; 83735; 84100; 84145; 84443; 85025; 86140; 94664; 96365; 96366; 96367; 96372; 96376; 99285; J1650; J1815; J2470; J3480; J7030; J7042; J9999